=== PATIENT | male | born 1945 | race Caucasian/White ===

== ENCOUNTER 2022-03-17 10:20 | Emergency (ER) | payer MEDICARE, SELFPAY ==
[2022-03-17 10:25] VITALS: BP 162/88; PULSE 57; RESP 18; TEMP 36.6; O2SAT 97; BMI 33.0
--- NOTE | 2022-03-17 10:57 | ED.GENADULT ---
HPI - General Adult General Chief complaint: High Blood Pressure Stated complaint: elevated blood pressure Time Seen by Provider: 03/17/22 10:38 History of Present Illness HPI narrative: This 76-year-old male comes in with concern about his blood pressure. He states that he has not slept well the last couple nights because he has been worried about his blood pressure. He also had a nose bleed in the left nostril. He states that he measured his blood pressure at a systolic value of around 190. He is taking atenolol. He states that he feels normal otherwise. He does not report any shortness of breath or chest pain. He does not have any lightheadedness. He arrives here with blood pressure of 162/88. Related Data Home Medications Medication Instructions Recorded Confirmed atenolol 50 mg tablet mg 03/17/22 chlorthalidone 25 mg tablet mg 03/17/22 ibuprofen 600 mg tablet mg 03/17/22 primidone 50 mg tablet mg 03/17/22 Allergies Allergy/AdvReac Type Severity Reaction Status Date / Time aspirin Allergy Verified 03/17/22 10:31 Review of Systems Status of ROS: Reports: 10 or more systems reviewed and unremarkable except as noted in History and below Narrative: Constitutional: No fevers, no weight gain or loss. Eyes: No discharge. No vision changes. HENT: No congestion, no sore throat, no ear pain. He reports a nosebleed last evening. Cardiovascular: No chest pain, no palpitations. Respiratory: No shortness of breath, no wheezes, no cough. Gastrointestinal: No abdominal pain, no vomiting, no diarrhea. Genitourinary: No dysuria, no hematuria. Musculoskeletal: Normal range of motion. Skin: No rashes, no pruritis. Neurological: No dizziness, weakness, sensory change, speech change. Endo/Heme/Allergies: No bruising or bleeding. No polydipsia. Pysch: no suicidality. He reports some recent insomnia and anxiety symptoms. All other systems reviewed and are negative. Exam Narrative: Exam Narrative: Constitutional: Well-developed, well-nourished, no acute distress. HEENT: Normocephalic, atraumatic. Evidence of recent bleeding in the left anterior nostril. No active bleeding. Neck: Normal range of motion. Nontender. Supple. Heart: Regular. No murmurs. Normal rate. Intact distal pulses. Lungs: Clear to auscultation. No chest discomfort. No wheezes, rhonchi, or rales. Abdomen: Normal bowel sounds. Nontender. No rebound tenderness. Genitalia: Deferred. Back: No midline tenderness. Normal range of motion. Extremities: Normal range of motion. No injury. Skin: Intact. No rash. Warm. No erythema or pallor. Neurologic: No altered sensation. No weakness. Alert and oriented. Psychiatric: No suicidality. No anxiety or depression. No insomnia. Nursing notes and vitals signs are reviewed. Const: Vital Signs, click to edit/add: Vital Signs - 24 hr 03/17/22 10:25 Temperature 97.9 F Pulse Rate [Right Pulse Oximeter] 57 L Respiratory Rate 18 Blood Pressure [Ri ght Upper Arm] 162/88 H Pulse Oximetry 97 Oxygen Delivery Me thod Room Air Course Vital Signs Vital signs: Initial Vital Signs Temperature 97.9 F 03/17/22 10:25 Temperature Source Temporal Artery Scan 03/17/22 10:25 Pulse Rate 57 L 03/17/22 10:25 Respiratory Rate 18 03/17/22 10:25 Blood Pressure 162/88 H 03/17/22 10:25 Blood Pressure Mean 112 03/17/22 10:25 Blood Pressure Position Sitting 03/17/22 10:25 Pulse Oximetry 97 03/17/22 10:25 Oxygen Delivery Method 03/17/22 10:25 Vital Signs Temperature 97.9 F 03/17/22 10:25 Pulse Rate 57 L 03/17/22 10:25 Respiratory Rate 18 03/17/22 10:25 Blood Pressure 162/88 H 03/17/22 10:25 Pulse Oximetry 97 03/17/22 10:25 Oxygen Delivery Method 03/17/22 10:25 Temperature 97.9 F 03/17/22 10:25 Pulse Rate 57 L 03/17/22 10:25 Respiratory Rate 18 03/17/22 10:25 Blood Pressure 162/88 H 03/17/22 10:25 Pulse Oximetry 97 03/17/22 10:25 Oxygen Delivery Method 03/17/22 10:25 Medical Decision Making MDM Narrative Medical decision making narrative: This patient comes in with concern about blood pressure. I described criteria that her used to establish a diagnosis of hypertension or to consider change of treatment plans. I advised him to follow-up with his primary physician in this regard. He did have a nosebleed last evening but there is no active bleeding currently. I gave instructions regarding recurrent bleeding if this were to happen. He did receive a nasal clamp if rebleeding recurs. Discharge Plan Discharge Clinical Impression: Elevated blood pressure reading Patient Disposition: Home, Self-Care Condition: Stable Additional Instructions: Continue current plans. Record blood pressures and follow-up with primary physician to review medications. Return if worsening. Prescriptions: No Action primidone 50 mg tablet Label Comments: TAKE 5 TABLETS (250MG) BY MOUTH TWICE DAILY. chlorthalidone 25 mg tablet Label Comments: TAKE ONE TABLET (25MG) BY MOUTH ONE TIME DAILY. ibuprofen 600 mg tablet Label Comments: TAKE ONE TABLET BY MOUTH FOUR TIMES DAILY WITH MEALS NEEDED for pain. atenolol 50 mg tablet Label Comments: TAKE ONE TABLET BY MOUTH ONE TIME DAILY Follow Up/Referrals: Glenn Mayfield MD [Primary Care Provider] - Stand Alone Forms: Smarterphone Info Instructions
[2022-03-17 11:05] VITALS: BP 138/69; PULSE 50; O2SAT 96
--- OUTSIDE RECORDS SUMMARY | 2022-03-17 11:14 | XMS_ITS | Clinical Summary ---
:1945 Author Organization [facility] [employer] [facility] [place] [address] Care Team Providers Name Role Phone Bonita Wilder MD Unavailable Unavailable Toro Dobbins MD Unavailable Unavailable Tiffany Mcmillan Unavailable Unavailable Pj Tobin DO Primary Care Provider Allergies Active Allergy Reactions Severity Noted Date Comments Aspirin, Buffered 10/16/2006 intorence to asa Diphenhydramine Itching 02/08/2015 Loratadine Itching 10/14/2013 Medications Medication Sig Dispensed Refills Start Date End Date Status MISCELLANEOUS MEDICAL As directed. For personal us e. 30-40cm compression, as per previous measurements 2 Packet 0 04/06/2011 Active SUPPLY (GRADUATED Diagnosis lymphedema 457.1 COMPRESSION STOCKINGS) CPAP CPAP machine for 1 unit 0 12/31/2014 Ac tive home use at pressure: , heated humidifier (1per 6 months), humidifier chamber, mask and interface (nasal mask, nasal pillow mask, full face mask 1 per 3 months ea.), nasal mask cushion (2 per month), nasal pillow cushion (2 pair per month), full face mask cushion 1 per month), tubing (1 per 3 months), headgear (1 per 6 months), chinstrap (1 per 6 months), filter: disposable (2 per month), Length of Need: Lifetime, AHI: atenoloL (TENORMIN) TAKE ONE TABLET BY 90 Tablet 2 09/08/2021 Active 50 mg MOUTH ONE TIME tabletIndications: DAILY Hypertension, Medicare annual wellness visit, subsequent oxyCODONE [The details of 0 11/02/2021 Act jaime (ROXICODONE) 5 mg the medication are immediate release not available tablet because there are pending changes by a home health clinician.] silver sulfADIAZINE Apply topically to 50 g 0 11/06/2021 Active (SILVADENE) 1 % affected area(s) creamIndications: once daily. Skin abrasion multivitamin (MVI) Take 1 Tablet by 0 11/07/2021 Active tablet mouth once daily. chlorthalidone TAKE ONE TABLET BY 90 Tablet 2 11/27/2021 Active (HYGROTON) 25 mg MOUTH ONE TIME tabletIndications: DAILY Essential hypertension ibuprofen (ADVIL; Take one tablet by 360 Tablet 11 11/27/2021 Active MOTRIN) 600 mg mouth 4 times a tabletIndications: day with food for Chronic pain of both pain. knees nicotine (Nicotrol) Inhale 10 mg by 168 Each 0 12/26/2021 Active 10 mg mouth every hour inhalerIndications: while awake as Tobacco use needed for Nicotine Craving. primidone (MYSOLINE) Take 1 Tablet (250 30 Tablet 2 12/26/2021 Active 250 mg mg) by mouth two tabletIndications: times daily. Resting tremor Active Problems Problem Noted Date Chronic venous insufficiency 11/06/2021 Combined forms of age-related cataract, bilateral 04/2021 Encounter for fitting and adjustment of hearing aid Hereditary and idiopathic neuropathy, unspecified 04/2021 Nail dystrophy 11/06/2021 Hypertrophy of nail 11/06/2021 Monoclonal gammopathy 11/06/2021 Personal history of tobacco use, presenting hazards to health 11/06/2021 Prediabetes 11/06/2021 Sensorineural hearing loss, bilateral 11/06/2021 Tinnitus 11/06/2021 Chronic pain of both knees 10/12/2020 Overview: October 2020: Bilateral cortisone injection s by Dr. Benavides. Left knee pain relief approximately 3 months of 50%. Right knee pain relief better and longer. Feb 2021: Left knee cortisone injection. 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 02/01/2009 NEVUS, NON-NEOPLASTIC 10/29/2000 Essential hypertension 03/18/2000 Obesity 03/18/2000 Other lymphedema Obstructive sleep apnea Encounters Date Type Specialty Care Team Description 03/17/2022 Travel 03/17/2022 Nurse Triage Pj Tobin DO Blood Press ure; Nose Problem 02/13/2022 Telephone Pj Tobin DO Referral (P ODIATRY ) 12/21/2021 Travel from Last 3 Months Immunizations Name Administration Dates Next Due AMB Influenza, IIV3 (Age >=3 01/06/2013 years)(Flu Clinic Only) Amb Influenza, Inact (High-dose) (Flu 01/06/2016, 01/07/2015 , 03/03/2014 Clinic Only) COVID-19 vaccine (MOO[employer]COM 01/20/2021, 06/21/2020, 30mcg/0.3mL) PF, MDV Influenza Virus, Unspecified 01/06/2017, 01/06/2015, 013, 01/18/2011 Influenza, High-dose Inactivated 2017, 2017, , 01/06/2016, 01/07/2015, 03/03/2014 Influenza, High-dose Quadrivalent 12/25/2020, 12/10/2019 Inactivated Influenza, IIV3 (Age 6-35 mos) 01/18/2011 Influenza, IIV3 (Age >=3 years) 01/06/2013, 04/22/2012, 01/06, 12/08/2008 Influenza, Inactivated AIIV4 (Age 65+ 12/08/2021 Years) Preserv Free Influenza, Inactivated IIV3 (Age 65+ 12/02/2018 Years) Preserv Free Pneumococcal Poly,23-Valent 08/22/2018, 07/12/2018, 12/09/19 09, (Pneumovax) 04/06/2005 Pneumococcal conj 13-Valent (Prevnar 09/02/2015, 09/08/2014 13) Pneumococcal, Unspecified 12/08/2008 Td (Age >=7 Years) 03/03/2003 Tdap 10/23/2021, 08/01/2011 Zoster (Shingrix-RZV, recombinant) 06/01/2017, 03/27/2017 Zoster (Zostavax-ZVL, live) 08/10/2012, 10/02/2011 Family History Medical History Relation Name Comments Other Father kidney failure Stroke Mother Relation Name Status Comments Father Mother Social History Tobacco Use Types Packs/Day Years Used Date Smoking Tobacco: Every Day Cigarettes 0.5 40 L ast attempted to quit: 06/07/2015 Cigars Smokeless Tobacco: Never Tobacco Cessation: Ready to Quit: No; Co unseling Given: Yes Comments: 5 cigars per day Alcohol Use Standard Drinks/Week Comments Yes 0 (1 standard drink = 0.6 oz pure 1 beer and 1 shot of whiskey yearly alcohol) - used to be a heavy etho user Alcohol Habits Answer Date Recorded How often do you have a drink containing alcohol? Monthly or less 06/12/2018 How many drinks containing alcohol do you have on a 1 or 2 06/12/2018 typical day when you are drinking? How often do you have six or more drinks on one Never 06/12/2018 occasion? 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 Obstetrics History Last Filed Vital Signs Vital Sign Reading Time Taken Comments Blood Pressure 113/71 12/26/2021 3:25 PM CDT Pulse 56 12/26/2021 3:25 PM CDT Temperature 37 ??C (98.6 ??F) 12/05/2021 9:14 AM CDT Respiratory Rate 18 12/05/2021 9:14 AM CDT Oxygen Saturation 95% 12/26/2021 3:25 PM CDT Inhaled Oxygen Concentration - - Weight 121.7 kg (268 lb 3.2 oz) 08/17/2021 10:51 AM CDT Height 177.8 cm (5' 10) 08/17/2021 10:51 AM CDT Body Mass Index 38.48 08/17/2021 10:51 AM CDT Plan of Treatment Health Maintenance Due Date Last Done Comments COVID-19 vaccine series (5 - 08/31/2021 07/06/2021, 021, Booster for Pfizer series) 06/21/2020, Additiona l history exists Depression screening for age 12+ 09/19/2021 09/19/2020, 01/2021, 09/17/2019, Additional history exists Medicare Wellness for age 65+ 09/19/2021 09/19/2020, 2019, 09/10/2018, Additional history exists BMI (ht and wt on same day) for 08/17/2022 08/17/2021, 09/06, age 18+ 01/19/2020, Additional history exists Low Dose CT (for lung CA) age 0812/04/2022 12/04/2021 50-80 Tetanus booster 10/24/2031 10/23/2021, 08/01/2011, 03/03/2003 Zoster (shingles) series for age Completed 06/01/2017, , 50+ 08/10/2012, Additional history exists Hepatitis C screening for age Completed 09/30/2017 18-79 Pneumococcal series for age 65+ Completed 08/22/2018, 0409/2018, 09/02/2015, Additional history exists Colonoscopy through age 75 Discontinued 11/05/2018, 9, 11/05/2018, Additional history exists Tdap Completed 10/23/2021, 08/01/2011 Influenza for age 65+ Completed 12/08/2021, 12/25/2020, 12/10/2019, Additional history exists Results Not on filefrom Last 3 Months Insurance Payer Benefit Plan / Subscriber ID Effective Dates Phone Addre ss Type Group [employer] [id number] 2021-Prese [id number] [place] [address] MEDICARE PART A MEDICARE PART A [id number] 1989-Presen ATTN: CLAIMS - HB USE ONLY HB ONLY t [address] [facility] [place] [address] MEDICARE PART B MEDICARE PART B [id number] 1989-Presen ATTN: CLAIMS - HB USE ONLY HB ONLY t [address] [facility] [place] [place] [address] [facility] MR [id number] 2020-Presen [address] [place] [address] [facility] [id number] 2021-Presen [address] [facility] [place] [address] Care Teams Sql Programmer Relationship Specialty Start Date End Date Pj Tobin DO PCP - General Family Practice 01/16/21 [address] [place] [address] Bonita Wilder, Physical Medicine and 08/06/12 Toro Tillman, Surgery - Vascular 08/06/12 Tiffany Zhu Infectious Diseases 08/06/12
--- OUTSIDE RECORDS SUMMARY | 2022-03-17 11:14 | XMS_ITS | Continuity of Care Document ---
:1945 Author Organization [facility] Care Team Providers Name Role Phone [facility] Unavailable Unavailable Problems Combined list of problems from Department of Defense and [facility] Affairs facilities. It does not include entries that were removed or entered in error. Problem Status Onset Problem Type Date of Comments Source Date Resolution Chronic obstructive Active Condition [facility] lung disease HCS (SNOMED CT 06199682) Chronic venous Active Condition [facility] insufficiency HCS Co-Managed Care Active Condition Dec 06, [facility] 2021 HCS Entered By: SABINO ROBLERO Comment: PCP: Dr. Alonso ([facility]) Dec 06, 2021 Entered By: SABINO ROBLERO Comment: Heme/onc: [facility] Essential Active Condition [facility] hypertension HCS Ingrowing toenail [facility] (SNOMED CT HCS 658616210) Lymphedema * Active Condition [facility] (ICD-9-CM 457.1) HCS Monoclonal IgG Active Condition Oct 21, [facility] 2019 HCS Entered By: SABINO ROBLERO Comment: Follows at [place] Obesity Active Condition [facility] HCS Obstructive sleep Active Condition [facility] apnea HCS Onychauxis (SNOMED Active Condition [place] 62968289) HCS Polycythemia Active Condition Oct 21, [facility] 2019 HCS Entered By: SABINO ROBLERO Comment: Follows at [place] Dec 06, 2021 Entered By: SABINO ROBLERO Comment: JAK2 testing negative. ?smoking related. BM Bx done 2019 ([facility]) Prediabetes Active Condition [facility] HCS Tinnitus * Active Condition [facility] (ICD-9-CM 388.30) HC S Tobacco use (SNOMED Active Condition [facility] CT 738290743) HCS Diagnosis: Active Diagnosis [facility] ICD-10-CM Z46.1 HCS Encounter for fitting and adjustment of hearing aidwith Provider Comments: Encounter for fitting and adjustment of hearing aid Diagnosis: Active Diagnosis [facility] [place] ICD-10-CM G47.30 HCS Sleep apnea, unspecifiedwith Provider Comments: Obstructive sleep apnea ([facility] [id number]) Diagnosis: Active Diagnosis [facility] [place] ICD-10-CM Z72.0 HCS Tobacco usewith Provider Comments: Tobacco use ([facility] [id number]) Diagnosis: Active Diagnosis [facility] [place] ICD-10-CM D47.2 HCS Monoclonal gammopathywith Provider Comments: Monoclonal IgG present ([facility] [id number]) Diagnosis: Active Diagnosis [facility] [place] ICD-10-CM L60.3 HCS Nail dystrophywith Provider Comments: Nail dystrophy Diagnosis: Active Diagnosis [facility] [place] ICD-10-CM H25.813 HC S Combined forms of age-related cataract, bilateralwith Provider Comments: Combined forms of age-related cataract, bilateral Diagnosis: Active Diagnosis [facility] [place] ICD-10-CM G60.9 HCS Hereditary and idiopathic neuropathy, unspecifiedwith Provider Comments: Hereditary and idiopathic neuropathy, unspecified Diagnosis: Active Diagnosis [facility] [place] ICD-10-CM H90.3 HCS Sensorineural hearing loss, bilateralwith Provider Comments: Sensorineural hearing loss, bilateral Medications Combined list of outpatient medications from Department of [employer] and Veterans Affairs facilities. Medications provided include 1) outpatient medications from the last 15 months, and 2) patient-reported medications. Medication Details Route Status Patient Prescription Prescription Last Ordering Order Source Instructions Expires Number Dispense Provider Date Date ATENOLOL TAKE ONE ORALLY ACTIVE BAM,T [place] 50MG TAB TABLET ERESE M 2011 [place] [facility] BY MOUTH [facility] DAILY CHLORTHALID TAKE ONE ORALLY ACTIVE OSBALDO,GALA 12/06 / [place] ONE 25MG TABLET ERTSON E 2021 [place] [facility] TAB BY MOUTH HCS EVERY DAY PRIMIDONE TAKE ONE ORALLY ACTIVE MERRITT,J 10/01/ [place] 50MG TAB TABLET MART C 2016 [place] [facility] BY [facility]TH HCS TWICE A DAY Allergies, Adverse Reactions, Alerts Combined list of allergies from Department of [employer], [employer] and Veterans Affairs facilities. It does not include entries that were removed or entered in error. Substance Category Reaction Severity Reaction Status Date Comments S ource type Reported ASPIRIN Propensity Gastrointes Propensity active [place] to adverse tinal to adverse 0 [facility] reactions hemorrhage reactions H CS to drug to drug (finding) (finding) LORATADINE Propensity Itching Propensity active [place] to adverse to adverse 4 LI S VA reactions reactions HCS to drug to drug (finding) (finding) Immunizations Combined list of available immunizations from the Department of Defense and Veterans Affairs facilities. 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 complet per JLV [place] TH 2021 ed [place] COVID-19 4 complet [place] (PFIZER), 2021 ed [place] [facility] MRNA, LNP-S, H CS PF, 30 MCG/0.3 ML DOSE, DONNA-SUCROSE (AGES 12+ YEARS) COVID-19 3 complet [place] (PFIZER), 2020 ed [place] [facility] MRNA, LNP-S, H CS PF, 30 MCG/0.3 ML DOSE COVID-19 2 complet [place] LIANET ([employer]), 2020 ed HEAL TH MRNA, LNP-S, PF, 30 MCG/0.3 ML DOSE COVID-19 1 complet [place] LIANET ([employer]), 2020 ed HEAL TH MRNA, LNP-S, PF, 30 MCG/0.3 ML DOSE ZOSTER 2 complet MIIC [place] RECOMBINANT 2017 ed [facility] [place] [facility] H[facility] ZOSTER 1 complet MIIC [place] RECOMBINANT 2016 ed [facility] [place] [facility] INFLUENZA, complet [place] HIGH DOSE 2016 ed [place] [facility] SEASONAL HCS PNEUMOCOCCAL complet Wyet h [place] CONJUGATE PCV 2016 ed Pharm. , [place] 13 [id number], HCS 09/22. INFLUENZA, complet [place] HIGH DOSE 2014 ed [place] [facility] SEASONAL [facility] INFLUENZA, complet [place] UNSPECIFIED 2012 ed [facility] [place] [facility] FORMULATION HC S ZOSTER LIVE complet merck [place] 2011 ed 0254ae,3/ [place] [facility] 09/2012 HCS TDAP complet [place] 2011 ed [place] HCS INFLUENZA, complet [place] UNSPECIFIED 2010 ed [facility] [place] [facility] FORMULATION HC S PNEUMOCOCCAL, complet PPV -23 [place] UNSPECIFIED 2008 ed [place] [facility] FORMULATION HC S Vital Signs Combined list of inpatient and outpatient Vital Signs from Department of Defense and Veterans Affairs, ranging from 12 months to all on record, depending upon the facility. Vital Sign Value Date Comments Source SYSTOLIC BLOOD PRESSURE 127 12/06/2021 11:22:44 [facility] DIASTOLIC BLOOD PRESSURE 76 12/06/2021 11:22:44 [facility] PULSE OXIMETRY 95% 12/06/2021 11:22:44 [place] [facility] WEIGHT 255.4 12/06/2021 11:22:44 [place] [facility] BMI 41kg/m2 12/06/2021 11:22:44 [place] [facility] PAIN 7 12/06/2021 11:22:44 [place] [facility] TEMPERATURE 98.1 12/06/2021 11:22:44 [place] [facility] PULSE 61 12/06/2021 11:22:44 [place] [facility] RESPIRATION 18 12/06/2021 11:22:44 [place] [facility] Encounters Combined list of: 1) Encounters from Department of Veterans Affairs facilities going back up to the last 18 months. 2) Encounters from the Department of Defense facilities going back up to 280 months. Location Location Encounter Encounter Reason Attending ADM DC Stat us Disposition Source Details Type Number For Provider Date Date Visit Outpatient [id number] KYLAH ROBLERO 11/07 [place] Encounter [id number] RTSON E [facility] OFFICE O/P 75442-4.61 Diagnos KYLAH ROBLERO 11/07 [place] EST MOD [id number] is: RTSON E [place] [facility] 30-39 MIN ICD-10- HCS CM D47.2 Monoclo nal gammopa thy<br/ >with Provide r Comment s: Monoclo nal IgG present (SCT [id number]) ROUT FOOT 92736-4.61 Diagnos JOSH,TIN 12/02 [place] CARE PER [id number] is: A L /2020 [place] [facility] A VISIT ICD-10- HCS CM L60.3 Nail dystrop hy
with Provide r Comment s: Nail dystrop hy Outpatient [id number] 12/06 [place] Encounter [id number] /2020 [place] [facility] Outpatient 64472-5.61 10/15 [place] Encounter [id number] /2020 [place] [facility] ROUT FOOT 19612-8.61 Diagnos YOUNG,BEAT 12/22 [place] CARE PER [id number] is: RICE [place] A VISIT ICD-10- HCS CM L60.3 Nail dystrop hy
with Provide r Comment s: Nail dystrop hy HEARING 22249-5.61 Diagnos YUE JAMILR 04/10 [place] AID CHECK [id number] is: ICA L [place] [facility] BOTH EARS ICD-10- HCS CM H90.3 Sensori neural hearing loss, bilater al
with Provide r Comment s: Sensori neural hearing loss, bilater al OFFICE O/P [id number] Diagnos JOLIE,BRIT 06/01 [place] EST MOD [id number] is: TONE WOOTEN /2021 [facility] 30-39 MIN ICD-10- HCS CM G60.9 Heredit angel and idiopat hic neuropa thy, unspeci fied
with Provide r Comment s: Heredit angel and idiopat hic neuropa thy, unspeci fied SELF-MGMT 60136-3. Diagnos ROSAURA RIVERA 06/07 [place] EDUC & [id number] is: RTHA R [place] [facility] TRAIN 1 PT ICD-10- HCS CM Z46.1 Encount er for fitting and adjustm ent of hearing aid<br/ >with Provide r Comment s: Encount er for fitting and adjustm ent of hearing aid Outpatient [id number] 07/06 [place] Encounter [id number] /2021 [place] [facility] OFF[place]/P 98438-6 Diagnos DYLAN,[facility] 08/11 [place] EST MOD [id number] is: HELL E [place] [facility] A 30-39 MIN ICD-10- HCS CM H25.813 Combine d forms of age-rel ated catarac t, bilater al
with Provide r Comment s: Combine d forms of age-rel ated catarac t, bilater al ROUT FOOT 67917-1.61 Diagnos [facility] 08/21 [place] CARE PER [id number] is: ISTINE A [facility] VISIT ICD-10- HCS CM L60.3 Nail dystrop hy
with Provide r Comment s: Nail dystrop hy Outpatient [id number] 09/26 [place] Encounter [id number] /2021 [place] [facility] 86597-2.61 10/13 [place] Encounter [id number] /2021 [place] [facility] Outpatient 20315-1..6 10/23 [place] Encounter [id number] /2021 [place] 20546-1.43 10[place]25 [place] En[id number] /2021 [facility] OFFICE O/P 87698-2.61 Diagnos KYLAH ROBLERO 12/06 [place] EST MOD [id number] is: RTSON E /2021 [place] [facility] 30-39 MIN ICD-10- HCS CM D47.2 Monoclo nal gammopa thy<br/ >with Provide r Comment s: Monoclo nal IgG present ([facility] [id number]) HC PRO 86279-8.61 Diagnos WADDELL- 12/20 [place] PHONE CALL [id number] is: LAURA MORFIN /2021 [place] [facility] 11-20 MIN ICD-10- MICK HCS CM Z72.0 Tobacco use<br/ >with Provide r Comment s: Tobacco use ([facility] [id number]) [place] 76794-6.61 Diagnos CHRISTENSE 01/16 [place] EDUCATION [id number] is: JOVON Chaidez /2021 [facility] NOC ICD-10- BETTY HCS INDIVID CM G47.30 Sleep apnea, unspeci fied
with Provide r Comment s: Obstruc tive sleep apnea ([facility] [id number]) Outpatient 50208-6.61 01/22 [place] Encounter [id number] /2021 [place] HCS REMOVE 80074-6.61 Diagnos JAY BABB 02/13 [place] IMPACTED [id number] is: AEL F /2021 [place] A EAR WAX ICD-10- HCS UNI CM Z46.1 Encount er for fitting and adjustm ent of hearing aid<br/ >with Provide r Comment s: Encount er for fitting and adjustm ent of hearing aid Social History Combined list of available smoking, tobacco, and other social history from Department of Defense and[employer]ans [employer] facilities. 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 [facility] NO History of tobacco use FORMER TOBACCO USE >1Y 09/09/2017 [facility] <7Y History of tobacco use CURRENT TOBACCO USER 10/01/2016 [facility] History of tobacco use FORMER TOBACCO USE <1Y 09/02/2015 [facility] History of tobacco use FORMER TOBACCO USE >1Y 08/18/2014 [facility] <7Y History of tobacco use CURRENT TOBACCO USER 10/14/2013 [facility] History of tobacco use CURRENT TOBACCO USER 10/07/2012 [facility] History of tobacco use CURRENT TOBACCO USER 10/02/2011 [facility] History of tobacco use CURRENT TOBACCO USER 09/30/2009 [facility]
--- OUTSIDE RECORDS SUMMARY | 2022-03-17 11:15 | XMS_ITS | Encounter Summary ---
:1945 Author Organization [facility] Address [address] [place] [address] Support Name Relationship Address Phone PRACHI ANDERSON Unavailable [id number] [facility] [place] [address] SHREE ANDERSON Unavailable [address] [facility] [place] [address] Insurance Providers: All historical and current Section Date Range: From patient's date of to the date document was created.This section includes the names of all active insurance providers for the patient. Insurance Type of Plan Start of End of Group Member Insurance Policy P atient's Provider Coverage Name Policy Policy Number ID Provider's Agosto's Relationship Coverage Coverage Telephone Name to Policy Number Agosto MEDICARE MEDICARE PART Dec 07, PART B [id number] 800 JUSTIN,LINDSAY P ATIENT (WNR) (M) B [id number] [phone] [place] MEDICARE MEDICARE PART Dec 07, PART B [id number] 800 JUSTIN,LINDSAY P ATIENT (WNR) (M) B [id number] [phone] [place] MEDICARE MEDICARE PART Apr 08, PART A [id number] 800 JUSTIN,LINDSAY P ATIENT (WNR) (M) A [id number] [phone] [place] MEDICARE MEDICARE PART Apr 08, PART A [id number] 800 JUSTIN,LINDSAY P ATIENT (WNR) (M) A [phone] [place] Selected Encounter This section includes the information on record at OR for the Encounter. Date/Time Encounter Type Encounter Reason Provider Source Description Jun 07, 2021 SELF-MGMT EDUC AUDIOLOGY ICD-10-CM Z46.1 NADYA RIVERA 12:30 PM & TRAIN 1 PT Encounter for R fitting and adjustment of hearing aid with Provider Comments: Encounter for fitting and adjustment of hearing aid IHE Encounter Template Text not used by VA Assessments - Encounter Diagnoses This section includes the primary and secondary diagnoses documented for the Encounter. Date/Time Primary/Secondary Diagnosis Name Provider Source Diagnosis Jun 07, 2021 PRIMARY Encounter for CELIA RIVERA V A 01:17 PM fitting and A R HCS adjustment of hearing aid Jun 07, 2021 SECONDARY Sensorineural CELIA RIVERA V A 01:17 PM hearing loss, A R HCS bilateral Jun 07, 2021 SECONDARY Tinnitus, CELIA RIVERA VA 01:17 PM bilateral A R HCS Plan of Treatment: Future Appointments (+ 6 months) and Future Tests (+/- 45 days) The Plan of Treatment section includes future care activities for the patient from all [facility] hospital. This section includes future appointments and future orders which are active, pending orscheduled.Future Appointments This section includes appointments that were scheduled to occur 6 months from the date of the Encounter, up to a maximum of 20 appointments. The data comes from all OR treatment facilities. Appointment Date/Time Appointment Type Appointment Facili ty Name August 11, 2021 10:00 AM AMBULATORY - SURGERY [facility] S August 21, 2021 01:00 PM AMBULATORY - SURGERY [facility] Dec 06, 2021 11:15 AM AMBULATORY - MEDICINE [facility] Social History: Smoking Status (Most current) and Tobacco Use (All prior to encounter date) This section includes the most current, and the historical, smoking and tobacco-related health factors from the OR facility where the Encounter took place.Current Smoking Status This section includes the most current smoking, or tobacco-related health factor, from the OR facility where the Encounter took place. Date/Time Current Smoking Status Comment Facility Nov 07, 2020 09:15 AM VA-TOBACCO FORMER USER [place] [facility] Tobacco Use History This section includes a history of the smoking, or tobacco- related health factors, that were collected on or before the date of the Encounter. The data comes from the OR facility where the Encounter took place. 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 [facility] September 04, 2018 09:00 AM VA-TOBACCO USE MED NO [place] [facility] September 04, 2018 09:00 AM VA-TOBACCO USE WI 30 MIN OF WAKEUP [facility] September 04, 2018 09:00 AM VA-TOBACCO USER EVERY DAY [facility] Sep 09, 2017 09:41 AM FORMER TOBACCO USE >1Y <7Y [facility] Oct 01, 2016 03:22 PM CURRENT TOBACCO USER [facility] September 02, 2015 03:18 PM [facility] <[facility]Y [facility] August 18, 2014 10:08 AM FORMER TOBACCO USE >1Y <7Y [facility] Oct 14, 2013 09:37 AM CURRENT TOBACCO USER [facility] [facility] Oct 07, 2012 10:00 AM CURRENT TOBACCO USER [facility] Oct 02, 2011 08:10 AM CURRENT [facility] Sep 30, 2009 11:25 AM CURRENT TOBACCO USER [facility] Encounter Notes: All associated encounter notes This section contains the clinical notes associated to the Encounter. Date/Time Encounter Note(s) Provider Source Jun 07, 2021 12:07 PM AUDIOLOGY NOTE: NADYA RIVERA IS [facility] LOCAL TITLE: AUDIOLOGY CLINIC NOTE STANDARD TITLE: AUDIOLOGY NOTE DATE OF NOTE: JUN 07, 2021@12:07 ENTRY DATE: JUN 07, 2021@12:07:12 AUTHOR: NADYA RIVERA COSIGNER: URGENCY: STATUS: COMPLETED SUBJECT: MAGANA Fit DIAGNOSIS: Encounter for Fitting and Adjustment of Hearing Aid Sensorineural loss, bilateral Tinnitus, bilateral REASON FOR VISIT: Therapeutic - hearing aid fitting, orien tation and counseling using a standard curriculum (30 minutes) LOCATION OF VISIT (ROOM NUMBER): [id number] was seen for Hearing Aid [place] Appointment OTOSCOPY: Both Ears: Free of excessive cerumen. Normal ruth bam bilaterally HISTORY: is an experienced hearing aid we arer. Recommended keep his old hearing aids as a backup/spare as needed. 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 Fe edback test was completed and feedback diabetes territory manager was activated. Hearing aids were program med to prescriptive targets, which were derived from the Veterans hearing los s. Real-ear measurements could not be completed, pr obe tubes clogged repeatedly. Veterans subjective impressions were considered while adjusting the hearing aids. Frequency response was set at 100% of targ et. SoundRecover disabled per his preference. reported good sound quality and equal ba parveen between ears after adjustments were made. Veter an reported a comfortable fit. demonstrated understanding of the new aids and was able to in sert the hearing aids appropriately, as well as manipulate the volume control and charging unit. Indicator tones were demonstrated for [place]. Volume control enabled- Synchronized Program button enabled Programs: default Tap control enabled for answer/end phone call an d pause/resume streaming only Tap control training completed 's cell phone was paired to the hearing a ids via Bluetooth. A practice phone call was completed to verify functionality . Reviewed how to change call audio routing. Education and counseling was comp leted regarding streaming capabilities. Provided [employer] connectivity support number in case issues arise. was counseled using a standard curriculu m (30 minutes) regarding: -Full-time hearing aid use and acclimating to am plification -Realistic expectations for hearing aid use -How to charge the hearing aids -Location and operation of all controls -Proper care and maintenance -Protecting hearing in high noise levels -[facility] and Call Center contact information and se rvices, including the trial period. Prognosis for success is goo d, given the 's response to the hearing aids. Hearing aids were issued and supplies were pooja d. was provided with a copy of [place] issuance form [id number] a nd OR hearing aid handout. PLAN: [place] declined to schedule a followup appointm ent at this time. He will contact the Call Center for scheduling as needed . Patient is in agreement with this plan. /ariadna/ Clive Lindsey, [facility] Steam Tunnel Feeder Signed: 06/07/2021 13:17
--- OUTSIDE RECORDS SUMMARY | 2022-03-17 11:15 | XMS_ITS | Encounter Summary ---
:1945 Author Organization [facility] Address [address] [place] [id number] Support Name Relationship Address Phone PRACHI ANDERSON Unavailable [id number] [facility] [place] [address] SHREE ANDERSON Unavailable 1966 [facility] [address] Insurance Providers: All historical and current Section [...] MEDICARE MEDICARE PART Dec 07, PART B [id number] 800 JUSTIN,LINDSAY P ATIENT (WNR) (M) B 1991 [id number] [place] MEDIC[place] PART Dec 07, PART B [id number] 800 JUSTIN,LINDSAY P ATIENT (WNR) (M) B [phone] [place] MEDICARE PART Apr 08, PART A [id number] 800 JUSTIN,LINDSAY P ATIENT (WNR) (M) A 1991 [id number] [place] MEDICARE PART Apr 08, PART A [id number] 800 JUSTIN,LINDSAY P ATIENT (WNR) (M) A [phone] [place] Selected Encounter This section includes the information on record at [place] for the Encounter. Date/Time Encounter Type Encounter Reason Provider Source Description Jun 01, 2021 OFFICE O/P EST PODIATRY ICD-10-CM G60.9 JC DAVE 01:30 PM MOD 30-39 MIN Hereditary and JE idiopathic neuropathy, unspecified with Provider Comments: Hereditary and idiopathic neuropathy, unspecified IHE Encounter Template Text not used by [place] Assessments - Encounter Diagnoses This section includes the primary and secondary diagnoses documented for the Encounter. Date/Time Primary/Secondary Diagnosis Name Provider Source Diagnosis Jun 01, 2021 PRIMARY [facility] idiopathic Y JE [facility] neuropathy, unspecified Jun 01, 2021 SECONDARY T[facility]guium [facility] 01:33 PM Y [facility] Jun 01, 2021 SECONDARY Venous [facility] 01:33 PM insufficiency Y JE HCS (chronic) (peripheral) Plan of Treatment: Future Appointments (+ 6 months) and Future Tests (+/- 45 days) The Plan of Treatment section includes future care activities for the patient from all [place] [facility]. This section includes future appointments and future orders which are active, pending orscheduled.Future Appointments This section includes appointments that were scheduled to occur 6 months from the date of the Encounter, up to a maximum of 20 appointments. The data comes from all [place] treatment facilities. Appointment Date/Time Appointment Type Appointment Facili ty Name Jun 07, 2021 12:30 PM AMBULATORY - SURGERY [facility] August 11, 2021 10:00 AM AMBULATORY - SURGERY [facility] August 21, 2021 01:00 PM AMBULATORY - SURGERY [facility] Social History: Smoking Status (Most current) and Tobacco Use (All prior to encounter date) This section includes the most current, and the historical, smoking and tobacco-related health factors from the [place] facility where the Encounter took place.Current Smoking Status This section includes the most current smoking, or tobacco-related health factor, from the [place] facility where the Encounter took place. Date/Time Current Smoking Status Comment Facility Nov 07, 2020 09:15 AM VA-TOBACCO FORMER USER [facility]ILDA [facility]ERN[facility] Tobacco Use History This section includes a history of the smoking, or tobacco- related health factors, that were collected on or before the date of the Encounter. The data comes from the [place] facility where the Encounter took place. Date/Time Smoking Status/Tobacco Use Comment Facil ity Nov 07, 2020 09:15 AM VA-TOBACCO QUIT 15 YRS OR MORE [facility] September 04, 2018 09:00 AM VA-TOBACCO USE 30 YEARS OR MORE [facility] September 04, 2018 09:00 AM VA-TOBACCO USE ADVICE KERLINE [facility] September 04, 2018 09:00 AM VA-TOBACCO USE HOME CARE SPECIALIST NO [facility] September 04, 2018 09:00 AM VA-TOBACCO USE MED NO KERLINE [facility]IMES [facility] September 04, 2018 09:00 AM VA-TOBACCO USE WI 30 MIN OF WAKEUP [facility] September 04, 2018 09:00 AM [place]-TOBACCO USER EVERY DAY [facility] Sep 09, 2017 09:41 AM FORMER TOBACCO USE >1Y <7Y [facility] Oct 01, 2016 03:22 PM CURRENT TOBACCO USER [facility] September 02, 2015 03:18 PM FORMER [facility]BACCO USE <1Y [facility] August 18, 2014 10:08 AM FORMER TOBACCO USE >1Y <7Y [facility] Oct 14, 2013 09:37 AM CURRENT TOBACCO USER [facility] Oct 07, 2012 10:00 AM CURRENT TOBACCO USER [facility] Oct 02, 2011 08:10 AM CURRENT TOBACCO USER [facility] Sep 30, 2009 11:25 AM CURRENT TOBACCO USER [facility] Encounter Notes: All associated encounter notes This section contains the clinical notes associated to the Encounter. Date/Time Encounter Note(s) Provider Source Jun 01, 2021 12:46 PM PODIATRY ATTENDING NOTE: JC DAVE [facility] LOCAL TITLE: PODIATRY CLINIC NOTE STANDARD TITLE: PODIATRY ATTENDING NOTE DATE OF NOTE: JUN 01, 2021@12:46 ENTRY DATE: JUN 01, 2021@12:46:52 AUTHOR: JC DAVE EXP COSIGNER: URGENCY: STATUS: COMPLETED Subjective: 75 year old male presents to clinic for foot and nail care. He states that there have been no new issue s since his previous visit. History of neuropathy and pre diabetes. Overall, feeling we ll. Denies N/V/F/C/SOB/CP. 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 Active Non-VA Medications Status 1) Non-VA ATENOLOL 50MG TAB 50MG MOUTH DAILY ACT GABRIEL 2) Non-VA CHLORTHALIDONE 25MG TAB 12.5MG MOUTH E VERY DAY ACTIVE 3) Non-VA PRIMIDONE 50MG TAB 50MG MOUTH TWICE A DAY ACTIVE 4 Total Medications 10 Point ROS negative unless noted in the HPI. Objective: Patient is AOx3. NAD. Pleasant and co operative. Vascular: Pedal pulses palpable 2/4 at the DP an d PT locations bilateral. Capillary refill time is les s than 5 seconds. +1 pitting lower extremity edema, hemosidering staining to lower legs. Neurologic: Light touch and gross sensation inta ct. 0/10 sites intact as tested with SWMF b/l. Dermatologic: Skin is of normal texture and turg or. Temperature is warm to cool from proximal to distal . No open lesions or sores, webspaces are clean and dry. Toenails are intact. Nails 1-10 are elongat ed, thickened and dystrophic with evidence of subungual debris. Musculoskeletal: No gross deformity noted. Arch height and contour normal. Muscle strength 5/5 for all groups tested Assessment: Peripheral neuropathy Onychomycosis Venous insuffiency Plan: -Patient examined and evaluated. Discussed findi ngs with patient. -Good tenants of foot care were discussed, inclu ding daily foot inspection, bathing feet with lukewarm water to prevent burn s, drying thoroughly and/or applying antifungal powder t o webspaces, applying lotion to feet but not between toes, wearing clean dry sock s without tight elastic, avoiding barefoot walking, wearing proper footwear, and getting periodic fo ot exams. -Nails 1-10 were sharply debrided in length and thickness without incident. -Patient to RTC in 3 months for follow up. OK to continue with nurse nail clinic, see provider annually. /es/ JC DAVE DPM POLYTECHNIC TEACHER Signed: 06/01/2021 13:33
--- OUTSIDE RECORDS SUMMARY | 2022-03-17 11:15 | XMS_ITS | Encounter Summary ---
:1945 [address] [facility] Address [address] [place] [address] Support Name Relationship Address Phone PRACHI ANDERSON Unavailable [id number] [place] [address] [place] [address] SHREE ANDERSON Unavailable 1966 [place] [address] Insurance Providers: All historical and current Section [...] MEDICARE MEDICARE PART Dec 07, PART B [id number] 800 JUSTIN,LINDSAY P ATIENT (WNR) (M) B 1991 [id number] [phone] [place] MEDICARE PART Dec 07, PART B [id number] 800 JUSTIN,LINDSAY P ATIENT (WNR) (M) B [id number] [phone] [place] MED[place] MEDICARE PART Apr 08, PART A [id number] 800 JUSTIN,LINDSAY P ATIENT (WNR) (M) A [id number] [phone] [place] MED[place] MEDICARE PART Apr 08, PART A [id number] 800 JUSTIN,LINDSAY P ATIENT (WNR) (M) A 1991 [id number] [phone] [place] Selected Encounter This section includes the information on record at [place] for the Encounter. Date/Time Encounter Type Encounter Reason Provider Source Description August 11, 2021 OFFICE O/P EST OPHTHALMOLOGY ICD-10-CM TERRANCE RICHARDSON 10:00 AM MOD 30-39 MIN H25.813 E Combined forms of age-related cataract, bilateral with Provider Comments: Combined forms of age-related cataract, bilateral IHE Encounter Template Text not used by [place] Assessments - Encounter Diagnoses This section includes the primary and secondary diagnoses documented for the Encounter. Date/Time Primary/Secondary Diagnosis Name Provider Source Diagnosis August 11, 2021 PRIMARY Combined forms RIKY DIOP [place] 10:28 AM of age-related SA A HCS cataract, bilateral August 11, 2021 SECONDARY Nexdtve RIKY DIOP [facility] 10:28 AM age-related mclr SA [facility] degn, bilateral, early dry stage August 11, 2021 SECONDARY Pres[address]opia RIKY DIOP [facility] 10:28 AM [facility] Plan of Treatment: Future Appointments (+ 6 months) and Future Tests (+/- 45 days) The Plan of Treatment section includes future care activities for the patient from all [place] [facility]. This section includes future appointments and future orders which are active, pending orscheduled.Future Appointments This section includes appointments that were scheduled to occur 6 months from the date of the Encounter, up to a maximum of 20 appointments. The data comes from all [place] treatment facilities. Appointment Date/Time Appointment Type Appointment Facili ty Name August 21, 2021 01:00 PM AMBULATORY - SURGERY [facility] Dec 06, 2021 11:15 AM AMBULATORY - MEDICINE [facility] Dec 20, 2021 04:00 PM AMBULATORY - NONE [facility] Jan 16, 2022 02:30 PM AMBULATORY - MEDICINE [facility] Social History: Smoking Status (Most current) and Tobacco Use (All prior to encounter date) This section includes the most current, and the historical, smoking and tobacco-related health factors from the [place] facility where the Encounter took place.Current Smoking Status This section includes the most current smoking, or tobacco-related health factor, from the [place] facility where the Encounter took place. Date/Time Current Smoking Status Comment Facility Nov 07, 2020 09:15 AM VA-TOBACCO FORMER USER [place] [facility] Tobacco Use History This section includes a history of the smoking, or tobacco- related health factors, that were collected on or before the date of the Encounter. The data comes from the [place] facility where the Encounter took place. Date/Time Smoking Status/Tobacco Use Comment [facility] Nov 07, 2020 09:15 AM [place]-TOBACCO QUIT 15 YRS OR MORE [facility] September 04, 2018 09:00 AM [place]-TO[place]ACCO USE 30 YEARS OR MORE [facility] September 04, 2018 09:00 AM VA-TOBACCO USE ADVICE [facility] 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 NO [facility] September 04, 2018 09:00 AM [facility] September 04, 2018 09:00 AM VA-TOBACCO USE WI 30 MIN OF WAKEUP [facility] September 04, 2018 09:00 AM VA-TOBACCO USER EVERY DAY [facility] Sep 09, 2017 09:41 AM FORMER TOBACCO USE >1Y <7Y [facility] Oct 01, 2016 03:22 PM CURRENT TOBACCO USER [facility] September 02, 2015 03:18 PM FORMER TOBACCO USE <1Y [facility] August 18, 2014 10:08 AM FORMER TOBACCO USE >1Y <7Y [facility] Oct 14, 2013 09:37 AM CURRENT TOBACCO USER [facility] Oct 07, 2012 10:00 AM CURRENT TOBACCO USER [facility] Oct 02, 2011 08:10 AM CURRENT TOBACCO USER [facility] Sep 30, 2009 11:25 AM CURRENT TOBACCO USER [facility] Encounter Notes: All associated encounter notes This section contains the clinical notes associated to the Encounter. Date/Time Encounter Note(s) Provider Source August 11, 2021 09:51 AM STAFF NUCLEAR WEAPONS OFFICER NOTE: EKATERINA LANDA [facility] LOCAL TITLE: STAFF NUCLEAR WEAPONS OFFICER NOTE STANDARD TITLE: STAFF NUCLEAR WEAPONS OFFICER NOTE DATE OF NOTE: AUGUST 11, 2021@09:51 ENTRY DATE: AUGUST 11, 2021@09:51:03 AUTHOR: EKATERINA LANDA EXP COSIGNER: URGENCY: STATUS: COMPLETED Eye Start Exam Patient: ESTHER ANDERSON Sex: MALE Birthdate: [birth year] Chief complaint: Exam - no changes in vision have been noticed - no other concerns History of Present Illness: Location: Intensity: Duration: Active problems - Computerized Problem List is t he source for the followin. Lymphedema * 2. Tinnitus * 3. Personal History of Tobacco Use 4. Chronic obstructive lung disease (SNOMED CT 61970887) 5. Ingrowing toenail (SNOMED CT 561582569) 6. Onychauxis (SNOMED CT 06468142) 7. Obesity 8. Obstructive sleep apnea 9. Prediabetes 10. Essential hypertension 11. Chronic venous insufficiency 12. Monoclonal IgG present - [facility] 13. Polycythemia - Follows at [facility] 14. Co-Managed Care - PCP: [facility] Zeng ([facility]) - Heme/onc: Dr. Chacon ([facility]) Surgeries: SURGERIES - NONE FOUND Full Exam Eye Medications Patient denies eye medication use. Allergies: ASPIRIN (Sep 30, 2009) LORATADINE (Oct 14, 2013) No new Allergies. Past Medical History: Hypertension Past eye history: Cataracts : OU Past eye surgeries: Denies all Last refraction: 08-12-20 Vision: OD:CC(with glasses) OD: 20/40 Pinhole: 20/30+2 Near: 20/ Vision: OS:CC(with glasses) 0S: 20/25+1 Pinhole: 20/ Near: 20/ Current glasses: OD:+0.25 +0.36F632 Prism: OS:+1.00 +0.50X15 Prism: Add: +2.50 Confrontational Marrufo: Full to finger counting: Right: Yes Left: Yes Extra Ocular Movement: Normal Pupils: Right: Round Left: Round Size: Right: 4 Left: 4 React to light: Right: Yes Left: Yes Afferent pupil defect: Right:No Grade: Left: No Grade: Note: Intra-ocular pressure (IOP): OD: 20 OS: 19 iCare Dilation: mydriacyl 1% and neosynephrine OU August@09:56 /ariadna/ EKATERINANOEL [facility] ELECTRICAL RESEARCH ENGINEER Signed: 08/11/2021 09:56 August 11, 2021 06:58 AM OPTOMETRY NOTE: YANI DIOP [facility] LOCAL TITLE: OPTOMETRY CLINIC NOTE STANDARD TITLE: OPTOMETRY NOTE DATE OF NOTE: AUGUST 11, 2021@06:58 ENTRY DATE: AUGUST 11, 2021@06:58:28 AUTHOR: YANI DIOP EXP COSIGNER: URGENCY: STATUS: COMPLETED Reviewed and agree with tech notes, add: 75 year old WHITE MALE CC: Reports no changes to vision since last exam . Denies pain or discomfort. PMHx: COPD, MITCHELL, HTN, prediabetes Mental Status: alert and orientation to time and place Mood, affect: Appropriate Entering VAcc OD: 20/40 OS: 20/25+1 Manifest Refraction/Final Spectacle Prescription : OD:+0.25+0.34t829 VA:20/30 OS:+0.75+0.20c214 VA:20/25 Add:+2.50 SLEx (OU unless otherwise noted): Adnexa/Orbit: clear Lids/Lashes: dermatochalasis Conjunctiva: White and quiet Cornea: Clear Anterior Chamber: Deep and quiet Iris: No tears, no NVI Lens: 2+ NSC, 1+ CC OU; 1+ PSC OD, 1-2+ PSC OS --- Intra-ocular pressure (IOP): OD: 20 OS: 19 iCare Dilation: mydriacyl 1% and neosynephrine OU --- Fundus Exam (OU unless otherwise noted): ONH: 0.5 OD - shallow, 0.45 OS Rim tissue well perfused OU, distinct margins, n o pallor Macula: flat/dry; OD trace RPE mottling, rare fi ne drusen, OS few small hard drusen Vessels: Normal caliber, no heme, no NVE Vitreous: Syneresis Periphery: Flat and intact with no holes or tear s 360' Assessment/Plan 1. Combined Cataract OU -mildly visually significant, not affecting ADL s. Discussed timing of surgery. Monitor 2. 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 -Discussed modification factors. Patient is cur rently a non-smoker -Encouraged increased antioxidant intake, no sm oking, UV protection. -AREDS2-not indicated. -Discussed home amsler grid. Handout given. -Return to clinic [place] if any changes noted, ot herwise RTC 1 year VTDMR. 3. RE/Presbyopia OU -Released final copy of Spectacle prescription. Transitions due to #1 Recommend RTC 1 year VTDMR or sooner with change s I have discussed this patient with my supervisin g practitioner Dr. Richardson, and Dr. Richardson agrees with my findings, assessment an d plan. /ariadna/ YANI DIOP OPTOMETRY RESIDENT Signed: 08/11/2021 10:29 Receipt Acknowledged By: * AWAITING SIGNATURE * TERRANCE RICHARDSON
--- OUTSIDE RECORDS SUMMARY | 2022-03-17 11:15 | XMS_ITS | Encounter Summary ---
:1945 Author Organization [facility] Address [address] [place] [address] Support Name Relationship Address Phone PRACHI ANDERSON Unavailable [id number] [facility] [phone] [place] [address] SHREE ANDERSON Unavailable 1966 [facility] [place] [address] Insurance Providers: All historical and current Section [...] MEDICARE MEDICARE PART Dec 07, PART B [id number] 800 JUSTIN,LINDSAY P ATIENT (WNR) (M) B 1991 [id number] [phone] [place] MEDICARE PART Dec 07, PART B [id number] 800 JUSTIN,LINDSAY P ATIENT (WNR) (M) B [id number] [phone] [place] MED[place] MEDICARE PART Apr 08, PART A [id number] 800 JUSTIN,LINDSAY P ATIENT (WNR) (M) A 1991 08A [phone] [place] MEDICARE MEDICARE PART Apr 08, PART A [id number] 800 JUSTIN,LINDSAY P ATIENT (WNR) (M) A [phone] [place] Selected Encounter This section includes the information on record at [place] for the Encounter. Date/Time Encounter Type Encounter Reason Provider Source Description Apr 10, 2021 HEARING AID AUDIOLOGY ICD-10-CM H90.3 NETO JAMIL 10:45 AM CHECK BOTH EARS Sensorineural L hearing loss, bilateral with Provider Comments: Sensorineural hearing loss, bilateral IHE Encounter Template Text not used by [facility] Assessments - Encounter Diagnoses This section includes the primary and secondary diagnoses documented for the Encounter. Date/Time Primary/Secondary Diagnosis Name Provider Source Diagnosis Apr 10, 2021 PRIMARY Sensorineural NETO JAMIL V A 12:13 PM hearing loss, L HCS bilateral Apr 10, 2021 SECONDARY Encounter for NETO JAMIL V A 12:13 PM fitting and L HCS adjustment of hearing aid Apr 10, 2021 SECONDARY Tinnitus, NETO JAMIL VA 12:13 PM bilateral L HCS Plan of Treatment: Future Appointments (+ 6 months) and Future Tests (+/- 45 days) The Plan of Treatment section includes future care activities for the patient [facility] This section includes future appointments and future orders which are active, pending orscheduled.Future Appointments This section includes appointments that were scheduled to occur 6 months from the date of the Encounter, up to a maximum of 20 appointments. The data comes from all [place] treatment facilities. Appointment Date/Time Appointment Type Appointment Facili ty Name Jun 01, 2021 01:30 PM AMBULATORY - SURGERY [facility] Jun 07, 2021 12:30 PM AM[facility]UL[facility]ORY - SUR[facility] August 11, 2021 10:00 AM AM[facility]UL[facility]ORY - SUR[facility] August 21, 2021 01:00 PM [facility]ORY - SUR[facility] Social History: Smoking Status (Most current) and Tobacco Use (All prior to encounter date) This section includes the most current, and the historical, smoking and tobacco-related health factors from the [place] facility where the Encounter took place.Current Smoking Status This section includes the most current smoking, or tobacco-related health factor, from the [place] facility where the Encounter took place. Date/Time Current Smoking Status Comment Facility Nov 07, 2020 09:15 AM VA-TOBACCO FORMER USER [facility] Tobacco Use History This section includes a history of the smoking, or tobacco- related health factors, that were collected on or before the date of the Encounter. The data comes from the [place] facility where the Encounter took place. Date/Time Smoking Status/Tobacco Use Comment [facility] Nov 07, 2020 09:15 AM [place]-TOBACCO QUIT 15 YRS OR MORE [facility] September 04, 2018 09:00 AM VA-TOBACCO USE 30 YEARS OR MORE [facility] September 04, 2018 09:00 AM VA-TOBACCO USE ADVICE KERLINE [facility] September 04, 2018 09:00 AM VA-TOBACCO USE RANGE ECOLOGIST NO [facility] September 04, 2018 09:00 AM VA-TOBACCO USE MED NO MINDm [facility] September 04, 2018 09:00 AM VA-TOBACCO USE WI 30 MIN OF WAKEUP [facility] September 04, 2018 09:00 AM VA-TOBACCO USER EVERY DAY [facility] Sep 09, 2017 09:41 AM FORMER TOBACCO USE >1Y <7Y [facility] Oct 01, 2016 03:22 PM CURRENT TOBACCO USER [facility] September 02, 2015 03:18 PM FORMER TOBACCO USE <1Y MIN [facility] August 18, 2014 10:08 AM FORMER TOBACCO USE >1Y <7Y [facility] Oct 14, 2013 09:37 AM CURRENT TOBACCO USER [facility] Oct 07, 2012 10:00 AM CURRENT TOBACCO USER [facility] Oct 02, 2011 08:10 AM CURRENT TOBACCO USER [facility] Sep 30, 2009 11:25 AM CURRENT TOBACCO USER [facility] Encounter Notes: All associated encounter notes This section contains the clinical notes associated to the Encounter. Date/Time Encounter Note(s) Provider Source Apr 10, 2021 08:36 AM [facility]: AUDIOLOGY CLINIC NOTE STANDARD TITLE: AUDIOLOGY NOTE DATE OF NOTE: APR 10, 2021@08:36 ENTRY DATE: APR 10, 2021@08:37:02 AUTHOR: NETO JAMIL EXP COSIGNER: URGENCY: STATUS: COMPLETED SUBJECT: KATHY Reason for visit: Therapeutic (hearing aid evalu ation and hearing aid service). 60 minutes Diagnosis: Sensorineural hearing loss, bilateral Tinnitus, bilateral Encounter for fitting of hearing aids Otoscopy: Both Ears: Free of excessive cerumen. Neg. EAM collapse/impaction. Circumaural earphones used. HISTORY: [place] is currently wearing Phonak Exelia Art B TE hearing aids, which were issued in 2009. [place] returns for maintenance on his current devices and to pursue new hearing aids. [place] feels his heari ng has somewhat declined over the years but does not notice a sudden change. H e denies, otalgia, otorrhea, aural fullness and dizziness. Otologic history i s otherwise unremarkable. AUDIOLOGIC TESTS COMPLETED THIS DATE (See Audiog deep Display for Results): Pure-tone air conduction Pure-tone bone conduction Speech recognition Tympanometry Hearing aid clean/check-binaural Hearing aid exam/selection-binaural Standard curriculum of care and counseling 30 mi n RESULTS: Results are essentially unchanged as compared to previous data. To view results: Go to Tools, Audiology, Audiogram Display. Today 's results are reliable and can be used for rating purposes. The [place] amiando C word lists were utilized today. TYMPANOMETRY: RIGHT EAR: Type: A Pressure: Normal Compliance: Normal Volume: Normal LEFT EAR: Type: A Pressure: Normal Compliance: Normal Volume: Normal DIAGNOSIS: Right: Normal to severe sensorineural hearing lo ss with 92% word recognition abilities. Tympanometry reveals normal middle ea r function. Left: Mild to moderately-severe sensorineural he aring loss with 88% word recognition abilities. Tympanometry reveals norm al middle ear function. Hearing aid-right: Make: Phonak Model: Exelia ART Micro Style: Open fit BTE Serial #: [id number] Hearing aid-left: Make: Phonak Model: Exelia ART Micro Style: Open fit BTE Serial #: [id number] HEARING AID SERVICE AND PROGRAMMING: Domes and tubes were replaced. Listening check r eveals good sound quality. Hearing aids programmed were not program med to today's audiogram as Phonak PFG software is no longer supported or installed on our [employer] platform. HEARING AID ORDER: [place] is currently eligible for VA issued aid/ s. Phonak Audeo P90-M SCARLET hearing aid/s (silver french, size 2 M receivers, medium open domes) were selected and ordered today. [place] CURRICULUM OF COUNSELING AND RECOMMEND ATIONS (30 min): [place] will return in 2-3 months for a 1 hour f itting appointment. was counseled on the standard curriculum related to the hazards of noise exposure and protecting hearing by wearing hearing protection. was counseled on the standard curriculum of realistic expectations associated with adjusting to hearing aids and us e of the new rechargeable devices. counseled on the standard curriculum of effective communication strategies such as maintaining face to f nazia contact when speaking, eliminating background noise when possible, and talking at a close distance. Monitor hearing annually for increase in asymmetry of hearing loss. If otologic symptoms arise or asymmetry increases, ENT refer ral may be warranted at this time. /es/ NETO JAMIL DIRECTOR, HEARING IMPLANT PROGRAM Signed: 04/10/2021 12:14
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
--- OUTSIDE RECORDS SUMMARY | 2022-03-17 11:15 | XMS_ITS | Encounter Summary ---
:1945 Author Organization [facility] Address [address] [place] [address] Support Name Relationship Address Phone PRACHI ANDERSON Unavailable [address] [facility] [phone] [place] [address] SHREE ANDERSON Unavailable [address] [facility] [place] [address] Insurance Providers: All historical and current Section [...] MEDICARE MEDICARE PART Dec 07, PART B [id number] 800 JUSTIN,LINDSAY P ATIENT (WNR) (M) B 1991 08A [phone] [place] MEDICARE MEDICARE PART Dec 07, PART B [id number] 800 JUSTIN,LINDSAY P ATIENT (WNR) (M) B [phone] [place] MED[place] MEDICARE PART Apr 08, PART A [id number] 800 JUSTIN,LINDSAY P ATIENT (WNR) (M) A 1991 08A [phone] [place] MEDICARE PART Apr 08, PART A [id number] 800 JUSTIN,LINDSAY P ATIENT (WNR) (M) A [phone] [place] Selected Encounter This section includes the information on record at [place] for the Encounter. Date/Time Encounter Type Encounter Reason Provider Source Description August 21, 2021 [facility] ICD-10-CM L60.3 CORNELL CLAROS 01:00 PM PER VISIT Nail dystrophy NE A with Provider Comments: Nail dystrophy IHE Encounter Template Text not used by [place] Assessments - Encounter Diagnoses This section includes the primary and secondary diagnoses documented for the Encounter. Date/Time Primary/Secondary Diagnosis Name Provider Source Diagnosis August 21, 2021 PRIMARY Nail dystrophy CORNELL CLAROS [facility] 01:50 PM [facility] Plan of Treatment: Future Appointments (+ 6 months) and Future Tests (+/- 45 days) The Plan of Treatment section includes future care activities for the patient from all [place] treatmentfacilities. This section includes future appointments and future orders which are active, pending orscheduled.Future Appointments This section includes appointments that were scheduled to occur 6 months from the date of the Encounter, up to a maximum of 20 appointments. The data comes from all [place] treatment facilities. Appointment Date/Time Appointment Type Appointment Facili ty Name Dec 06, 2021 11:15 AM AMBULATORY - MEDICINE [facility] Dec 20, 2021 04:00 PM AMBULATORY - NONE [facility] Jan 16, 2022 02:30 PM AMBULATORY - MEDICINE [facility] Feb 13, 2022 02:30 PM AMBULATORY - SURGERY [facility] Social History: Smoking Status (Most current) and Tobacco Use (All prior to encounter date) This section includes the most current, and the historical, smoking and tobacco-related health factors from the [place] facility where the Encounter took place.Current Smoking Status This section includes the most current smoking, or tobacco-related health factor, from the [place] facility where the Encounter took place. Date/Time Current Smoking Status Comment Facility Nov 07, 2020 09:15 AM VA-TOBACCO FORMER USER [facility] Tobacco Use History This section includes a history of the smoking, or tobacco- related health factors, that were collected on or before the date of the Encounter. The data comes from the [place] facility where the Encounter took place. Date/Time Smoking Status/Tobacco Use Comment [facility] Nov 07, 2020 09:15 AM VA-TOBACCO QUIT [address] [facility] September 04, 2018 09:00 AM VA-TOBACCO USE [address] [facility] September 04, 2018 09:00 AM VA-TOBACCO USE ADVICE [facility] September 04, 2018 09:00 AM VA-TOBACCO USE ACTUARY NO [facility] September 04, 2018 09:00 AM [facility] September 04, 2018 09:00 AM VA-TOBACCO USE WI [address] [facility] September 04, 2018 09:00 AM VA-TOBACCO USER EVERY DAY [facility] Sep 09, 2017 09:41 AM FORMER TOBACCO USE >1Y <7Y [facility] Oct 01, 2016 03:22 PM CURRENT TOBACCO USER [facility] September 02, 2015 03:18 PM FORMER TOBACCO USE <1Y [facility] August 18, 2014 10:08 AM FORMER TOBACCO USE >1Y <7Y [facility] Oct 14, 2013 09:37 AM CURRENT TOBACCO USER [facility] Oct 07, 2012 10:00 AM CURRENT TOBACCO USER [facility] Oct 02, 2011 08:10 AM CURRENT TOBACCO USER [facility] Sep 30, 2009 11:25 AM CURRENT TOBACCO USER [facility] Encounter Notes: All associated encounter notes This section contains the clinical notes associated to the Encounter. Date/Time Encounter Note(s) Provider Source August 21, 2021 01:49 PM PODIATRY NURSING NOTE: MELINA CLAROS [facility] LOCAL TITLE: PODIATRY CLINIC NURSING NOTE STANDARD TITLE: PODIATRY NURSING NOTE DATE OF NOTE: AUGUST 21, 2021@13:49 ENTRY DATE: AUGUST 21, 2021@13:49:41 AUTHOR: MELINA CLAROS EXP COSIGNER: URGENCY: STATUS: COMPLETED Routine Nail Care Description Nails 1-5 elongated Trimmed Nails 1-5 skin care to feet skin care to web spaces Description Nails 6-10 elongated Treatment Nails 6-10 skin care to feet skin care to web spaces Plan notified as appropriate Return to [id number] in 3 Month s Trimmed nails X10. Diagnosis: Dystrophic nails. /es/ MELINA CLAROS RN, WTA-C, [facility] REGISTERED NURSE Signed: 08/21/2021 13:50
--- OUTSIDE RECORDS SUMMARY | 2022-03-17 11:15 | XMS_ITS | Encounter Summary ---
:1945 Author Organization [facility] Address [address] [place] [address] Support Name Relationship Address Phone PRACHI ANDERSON Unavailable [id number] [facility] [phone] [place] [address] SHREE ANDERSON Unavailable 1966 [facility] [place] [address] Insurance Providers: All historical and current Section [...] MEDICARE MEDICARE PART Dec 07, PART B [id number] 800 JUSTIN,LINDSAY P ATIENT (WNR) (M) B 1991 [id number] [phone] [place] MEDICARE MEDICARE PART Dec 07, PART B [id number] 800 JUSTIN,LINDSAY P ATIENT (WNR) (M) B [id number] [phone] [place] MEDIC[place] MEDICARE PART Apr 08, PART A [id number] 800 JUSTIN,LINDSAY P ATIENT (WNR) (M) A 1991 08A [phone] [place] MED[place] MEDICARE PART Apr 08, PART A [id number] 800 JUSTIN,LINDSAY P ATIENT (WNR) (M) A [id number] [phone] [place] Selected Encounter This section includes the information on record at [place] for the Encounter. Date/Time Encounter Type Encounter Description Reason Provider Source Oct 13, 2021 01:35 Outpatient Encounter SLEEP MEDICINE PM IHE Encounter Template Text not used by [place] Plan of Treatment: Future Appointments (+ 6 months) and Future Tests (+/- 45 days) The Plan of Treatment section includes future care activities for the patient from all [place] treatmentfacilities. This section includes future appointments and future orders which are active, pending orscheduled.Future Appointments This section includes appointments that were scheduled to occur 6 months from the date of the Encounter, up to a maximum of 20 appointments. The data comes from all [place] treatment facilities. Appointment Date/Time Appointment Type Appointment Facili ty Name Dec 06, 2021 11:15 AM AMBULATORY - MEDICINE [facility] Dec 20, 2021 04:00 PM AMBULATORY - NONE [facility] Jan 16, 2022 02:30 PM AMBULATORY - MEDICINE [facility] Feb 13, 2022 02:30 PM AMBULATORY - SURGERY [facility] Social History: Smoking Status (Most current) and Tobacco Use (All prior to encounter date) This section includes the most current, and the historical, smoking and tobacco-related health factors from the [place] facility where the Encounter took place.Current Smoking Status This section includes the most current smoking, or tobacco-related health factor, from the [place] facility where the Encounter took place. Date/Time Current Smoking Status Comment Facility Nov 07, 2020 09:15 AM VA-TOBACCO FORMER USER [facility] Tobacco Use History This section includes a history of the smoking, or tobacco- related health factors, that were collected on or before the date of the Encounter. The data comes from the [place] facility where the Encounter took place. Date/Time Smoking Status/Tobacco Use Comment Facil it Nov 07, 2020 09:15 AM VA-TOBACCO QUIT 15 YRS OR MORE [facility] September 04, 2018 09:00 AM VA-TOBACCO USE 30 YEARS OR MORE [facility] September 04, 2018 09:00 AM VA-TOBACCO USE AD[facility]ICE [facility] September 04, 2018 09:00 AM VA-TOBACCO USE INNOVATIONS PARAPROFESSIONAL NO [facility] September 04, 2018 09:00 AM VA-TOBACCO USE MED NO [facility] September 04, 2018 09:00 AM VA-TOBACCO USE WI 30 MIN OF WAKEUP [facility] September 04, 2018 09:00 AM VA-TOBACCO USER EVERY DAY [facility] Sep 09, 2017 09:41 AM FORMER TOBACCO USE >1Y <7Y [facility] Oct 01, 2016 03:22 PM CURRENT TOBACCO USER [facility] MOLLY [facility] September 02, 2015 03:18 PM FORMER TOBACCO USE <1Y [facility] August 18, 2014 10:08 AM FORMER TOBACCO USE >1Y <7Y [facility] Oct 14, 2013 09:37 AM CURRENT TOBACCO USER [facility]I B[facility]ES [facility] Oct 07, 2012 10:00 AM [facility] Oct 02, 2011 08:10 AM [facility] Sep 30, 2009 11:25 AM CURRENT TOBACCO USER [facility] Encounter Notes: All associated encounter notes This section contains the clinical notes associated to the Encounter. Date/Time Encounter Note(s) Provider Source Oct 13, 2021 01:35 PM REPORT OF CONTACT: PIA GANT CHEY [facility] LOCAL TITLE: PATIENT CONTACT NOTE STANDARD TITLE: REPORT OF CONTACT DATE OF NOTE: OCT 13, 2021@13:35 ENTRY DATE: OCT 13, 2021@13:35:34 AUTHOR: PIA GANT EXP COSIGNER: URGENCY: STATUS: COMPLETED PATIENT CONTACT NOTE Has ADDENDA pt left VM stating that he i s in need of filters for his sleep device. pt can be contacted at [phone]. /ariadna/ PIA GANT AMSA Signed: 10/13/2021 13:36 Receipt Acknowledged By: 10/17/2021 17:30 /ariadna/ ELIZABETH ACOSTA RRT REGISTERED RESPIRATORY THERAPIST 10/17/2021 ADDENDUM STATUS: COMPLETED Request already filled on 10/06/21. Pt. states he has not received them yet. PtPavan golden call the clinic again if he does not see it by Saturday. /kwan ACOSTA RRT REGISTERED RESPIRATORY THERAPIST Signed: 10/17/2021 17:33
--- OUTSIDE RECORDS SUMMARY | 2022-03-17 11:15 | XMS_ITS | Encounter Summary ---
:1945 Author Organization [facility] Address [address] [place] [address] Support Name Relationship Address Phone PRACHI ANDERSON Unavailable [id number] [facility] [phone] [place] [address] SHREE ANDERSON Unavailable 1966 [facility] [address] Insurance Providers: All historical and current Section [...] MEDICARE MEDICARE PART Dec 07, PART B [id number] 800 JUSTIN,LINDSAY P ATIENT (WNR) (M) B 1991 08A [phone] [place] MED[place]ARE MEDICARE PART Dec 07, PART B [id number] 800 JUSTIN,LINDSAY P ATIENT (WNR) (M) B [phone] [place] MED[place] MEDICARE PART Apr 08, PART A [id number] 800 JUSTIN,LINDSAY P ATIENT (WNR) (M) A 1991 08A [phone] [place] MED[place]ARE MEDICARE PART Apr 08, PART A [id number] 800 JUSTIN,LINDSAY P ATIENT (WNR) (M) A [phone] [place] Selected Encounter This section includes the information on record at [place] for the Encounter. Date/Time Encounter Type Encounter Reason Provider Source Description Mar 29, 2021 [facility] FOOT CARE PODIATRY ICD-10-CM L60.3 CHAD MORRISON 01:30 PM PER VISIT Nail dystrophy with Provider Comments: Nail dystrophy IHE Encounter Template Text not used by [place] Assessments - Encounter Diagnoses This section includes the primary and secondary diagnoses documented for the Encounter. Date/Time Primary/Secondary Diagnosis Name Provider Source Diagnosis Mar 29, 2021 PRIMARY Nail dystrophy CHAD MORRISON [facility] 02:12 PM [facility] Plan of Treatment: Future Appointments (+ 6 months) and Future Tests (+/- 45 days) The Plan of Treatment section includes future care activities for the patient from all [place] treatmentfacilities. This section includes future appointments and future orders which are active, pending orscheduled.Future Appointments This section includes appointments that were scheduled to occur 6 months from the date of the Encounter, up to a maximum of 20 appointments. The data comes from all [place] treatment facilities. Appointment Date/Time Appointment Type Appointment Facili ty Name Apr 10, 2021 10:45 AM AMBULATORY - SURGERY [facility] Jun 01, 2021 01:30 PM AMBULATORY - SURGERY [facility] Jun 07, 2021 12:30 PM AMBULATORY - SURGERY [facility] August 11, 2021 10:00 AM AMBULATORY - SURGERY [facility] August 21, 2021 01:00 PM AMBULATORY - SURGERY [facility] Social History: Smoking Status (Most current) and Tobacco Use (All prior to encounter date) This section includes the most current, and the historical, smoking and tobacco-related health factors from the [place] facility where the Encounter took place.Current Smoking Status This section includes the most current smoking, or tobacco-related health factor, from the [place] facility where the Encounter took place. Date/Time Current Smoking Status Comment Facility Nov 07, 2020 09:15 AM VA-TOBACCO FORMER USER [facility] Tobacco Use History This section includes a history of the smoking, or tobacco- related health factors, that were collected on or before the date of the Encounter. The data comes from the [place] facility where the Encounter took place. 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 [facility] September 04, 2018 09:00 AM VA-TOBACCO USE MED NO KERLINE [facility] September 04, 2018 09:00 AM VA-TOBACCO USE WI 30 MIN OF WAKEUP [facility] September 04, 2018 09:00 AM VA-TOBACCO USER EVERY DAY [facility] Sep 09, 2017 09:41 AM FORMER TOBACCO USE >1Y <7Y [facility] Oct 01, 2016 03:22 PM CURRENT TOBACCO USER [facility] September 02, 2015 03:18 PM FORMER TOBACCO USE <1Y MIN [facility] August 18, 2014 10:08 AM FORMER TOBACCO USE >1Y <7Y [facility] Oct 14, 2013 09:37 AM CURRENT TOBACCO USER [facility] Oct 07, 2012 10:00 AM CURRENT TOBACCO USER [facility] Oct 02, 2011 08:10 AM CURRENT TOBACCO USER [facility] Sep 30, 2009 11:25 AM CURRENT TOBACCO USER [facility] Encounter Notes: All associated encounter notes This section contains the clinical notes associated to the Encounter. Date/Time Encounter Note(s) Provider Source Mar 29, 2021 02:11 PM PODIATRY NURSING NOTE: CHAD MORRISON [facility] LOCAL TITLE: PODIATRY CLINIC NURSING NOTE STANDARD TITLE: PODIATRY NURSING NOTE DATE OF NOTE: MAR 29, 2021@14:11 ENTRY DATE: MAR 29, 2021@14:11:34 AUTHOR: CHAD MORRISON EXP COSIGNER: URGENCY: STATUS: COMPLETED Routine Nail Care Description Nails 1-5 elongated thickening Trimmed Nails 1-5 skin care to feet skin care to web spaces Description Nails 6-10 elongated thickening Treatment Nails 6-10 skin care to feet skin care to web spaces Plan notified as appropriate [id number] Trimmed toenails x10, diagnosis-dystrophic nails . /ariadna/ Chad Morrison LPN LICENSED PRACTICAL NURSE Signed: 03/29/2021 14:12
--- OUTSIDE RECORDS SUMMARY | 2022-03-17 11:15 | XMS_ITS | Encounter Summary ---
:1945 Author Organization [facility] Address [address] [place] [address] Support Name Relationship Address Phone PRACHI ANDERSON Unavailable [address] [facility] [place] [address] SHREE ANDERSON Unavailable 1966 [place] [address] Insurance Providers: All historical and current Section [...] MEDICARE MEDICARE PART Dec 07, PART B [id number] 800 JUSTIN,LINDSAY P ATIENT (WNR) (M) B 1991 08A [phone] [place] MEDICARE MEDICARE PART Dec 07, PART B [id number] 800 JUSTIN,LINDSAY P ATIENT (WNR) (M) B [id number] [phone] [place] MED[place] MEDICARE PART Apr 08, PART A [id number] 800 JUSTIN,LINDSAY P ATIENT (WNR) (M) A 1991 08A [phone] [place] MED[place]ARE MEDICARE PART Apr 08, PART A [id number] 800 JUSTIN,LINDSAY P ATIENT (WNR) (M) A [id number] [phone] [place] Selected Encounter This section includes the information on record at [place] for the Encounter. Date/Time Encounter Type Encounter Description Reason Provider Source Sep 26, 2021 08:41 Outpatient Encounter TELEPHONE/MEDICINE AM IHE Encounter Template Text not used by [place] Plan of Treatment: Future Appointments (+ 6 months) and Future Tests (+/- 45 days) The Plan of Treatment section includes future care activities for the patient from all [place] treatmentfacilities. This section includes future appointments and future orders which are active, pending orscheduled.Future Appointments This section includes appointments that were scheduled to occur 6 months from the date of the Encounter, up to a maximum of 20 appointments. The data comes from all [place] treatment facilities. Appointment Date/Time Appointment Type Appointment Facili ty Name Dec 06, 2021 11:15 AM AMBULATORY - MEDICINE [facility] Dec 20, 2021 04:00 PM AMBULATORY - NONE [facility] Jan 16, 2022 02:30 PM AMBULATORY - MEDICINE [facility] Feb 13, 2022 02:30 PM AMBULATORY - SURGERY [facility] Social History: Smoking Status (Most current) and Tobacco Use (All prior to encounter date) This section includes the most current, and the historical, smoking and tobacco-related health factors from the [place] facility where the Encounter took place.Current Smoking Status This section includes the most current smoking, or tobacco-related health factor, from the [place] facility where the Encounter took place. Date/Time Current Smoking Status Comment Facility Nov 07, 2020 09:15 AM VA-TOBACCO FORMER USER MIN [facility] Tobacco Use History This section includes a history of the smoking, or tobacco- related health factors, that were collected on or before the date of the Encounter. The data comes from the [place] facility where the Encounter took place. 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 [facility] September 04, 2018 09:00 AM VA-TOBACCO USE MED NO [facility] September 04, 2018 09:00 AM VA-TOBACCO USE WI 30 MIN OF WAKEUP [facility] September 04, 2018 09:00 AM VA-TOBACCO USER EVERY DAY [facility] Sep 09, 2017 09:41 AM FORMER TOBACCO USE >1Y <7Y [facility] Oct 01, 2016 03:22 PM CURRENT TOBACCO USER [facility] September 02, 2015 03:18 PM FORMER TOBACCO USE <1Y MIN [facility] August 18, 2014 10:08 AM FORMER TOBACCO USE >1Y <7Y [facility] Oct 14, 2013 09:37 AM CURRENT TOBACCO USER [facility]RISTI BARNES [facility] Oct 07, 2012 10:00 AM CURRENT TOBACCO USER CHRISTI SANTANAS [facility] Oct 02, 2011 08:10 AM CURRENT TOBACCO USER CHRISTI SANTANAS [facility] Sep 30, 2009 11:25 AM CURRENT TOBACCO USER [facility] Encounter Notes: All associated encounter notes This section contains the clinical notes associated to the Encounter. Date/Time Encounter Note(s) Provider Source Sep 26, 2021 08:41 AM REPORT OF CONTACT: MAREK RAMReuben [facility] LOCAL TITLE: PATIENT CONTACT NOTE STANDARD TITLE: REPORT OF CONTACT DATE OF NOTE: SEP 26, 2021@08:41 ENTRY DATE: SEP 26, 2021@08:41:28 AUTHOR: MAREK RAM EXP COSIGNER: URGENCY: STATUS: COMPLETED Patient contact Name of [place]: JUSTINESTHER SWANN Name/Relationship of Contact if other than Veter an: Date & Time of Contact: Sep@08:41 Type of Contact: Telephone Reason for Contact: Patient called left message questions on recall and getting new filters, jingle writer attempted to call back left message to call [phone] advise good time to call him back. /ariadna/ MAREK RAM ADVANCED MSA Signed: 09/26/2021 08:42
--- OUTSIDE RECORDS SUMMARY | 2022-03-17 11:16 | XMS_ITS | Encounter Summary ---
:1945 Author Organization [facility] Address [address] [place] [address] Support Name Relationship Address Phone PRACHI ANDERSON Unavailable [id number] [facility] [phone] [place] [address] SHREE ANDERSON Unavailable 1966 [place] [address] Insurance Providers: All historical and current Section [...] MEDICARE MEDICARE PART Dec 07, PART B [id number] 800 JUSTIN,LINDSAY P ATIENT (WNR) (M) B 1991 [phone] [place] MEDICARE MEDICARE PART Dec 07, PART B [id number] 800 JUSTIN,LINDSAY P ATIENT (WNR) (M) B [id number] [phone] [place] MED[place] MEDICARE PART Apr 08, PART A [id number] 800 JUSTIN,LINDSAY P ATIENT (WNR) (M) A 1991 [id number] [phone] [place] MEDICARE MEDICARE PART Apr 08, PART A [id number] 800 JUSTIN,LINDSAY P ATIENT (WNR) (M) A [phone] [place] Selected Encounter This section includes the information on record at [place] for the Encounter. Date/Time Encounter Type Encounter Reason Provider Source Description Dec 20, 2021 PRO PHONE TELEPHONE PRIMARY ICD-10-CM NOEL 04:00 PM CALL 11-20 MIN CARE Z72.0 Tobacco E,ANDYROSE use with Provider Comments: Tobacco use (SCT [id number]) IHE Encounter Template Text not used by [place] Assessments - Encounter Diagnoses This section includes the primary and secondary diagnoses documented for the Encounter. Date/Time Primary/Secondary Diagnosis Name Provider Source Diagnosis Dec 20, 2021 PRIMARY Tobacco use WADDELLLaineKATHERYN ARMONA Alexander Alexis 04:00 PM [facility] Plan of Treatment: Future Appointments (+ 6 months) and Future Tests (+/- 45 days) The Plan of Treatment section includes future care activities for the patient from all [place] [facility] This section includes future appointments and future orders which are active, pending orscheduled.Future Appointments This section includes appointments that were scheduled to occur 6 months from the date of the Encounter, up to a maximum of 20 appointments. The data comes from all [place] treatment facilities. Appointment Date/Time Appointment Type Appointment Facili ty Name Jan 16, 2022 02:30 PM AMBULATORY - MEDICINE [facility] Feb 13, 2022 02:30 PM [facility] - [facility] Active, Pending, and Scheduled Orders This section includes a listing of several types of active, pending, and scheduled orders, including clinic medications orders, diagnostic test orders, procedure orders and consult orders; where the start date of the order is 45 days before the date of the Encounter or 45 days after the date of the Encounter. The data comes from all [place] treatment facilities. Test Date/Time Test Type Test Details Facility Name Dec 27, 2021 03:22 PM Consult Order COMMUNITY [facility]-PODIATRY Co ns [facility] National Sales Manager's Choice Social History: Smoking Status (Most current) and Tobacco Use (All prior to encounter date) This section includes the most current, and the historical, smoking and tobacco-related health factors from the [place] facility where the Encounter took place.Current Smoking Status This section includes the most current smoking, or tobacco-related health factor, from the [place] facility where the Encounter took place. Date/Time Current Smoking Status Comment Facility Dec 06, 2021 11:15 AM VA-TOBACCO USER EVERY DAY [facility] Tobacco Use History This section includes a history of the smoking, or tobacco- related health factors, that were collected on or before the date of the Encounter. The data comes from the [place] facility where the Encounter took place. 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 [facility] Dec 06, 2021 11:15 AM VA-TOBACCO USE MED NO [facility]ERLINE [facility] Dec 06, 2021 11:15 AM VA-TOBACCO USER EVERY DAY [facility] Nov 07, 2020 09:15 AM VA-TOBACCO FORMER USER MIN [facility] Nov 07, 2020 09:15 AM VA-TOBACCO QUIT 15 YRS OR MORE [facility] September 04, 2018 09:00 AM VA-TOBACCO USE 30 YEARS OR MORE [facility] September 04, 2018 09:00 AM VA-TOBACCO USE ADVICE [facility] September 04, 2018 09:00 AM 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 [facility] September 04, 2018 09:00 AM VA-TOBACCO USE MED NO [facility] September 04, 2018 09:00 AM VA-TOBACCO USE WI 30 MIN OF WAKEUP [facility] September 04, 2018 09:00 AM VA-TOBACCO USER EVERY DAY [facility] Sep 09, 2017 09:41 AM FORMER TOBACCO USE >1Y <7Y [facility] Oct 01, 2016 03:22 PM CURRENT TOBACCO USER [facility] September 02, 2015 03:18 PM FORMER TOBACCO USE <1Y MIN [facility] August 18, 2014 10:08 AM FORMER TOBACCO USE >1Y <7Y [facility] Oct 14, 2013 09:37 AM CURRENT TOBACCO USER [facility] Oct 07, 2012 10:00 AM CURRENT TOBACCO USER [facility] Oct 02, 2011 08:10 AM CURRENT TOBACCO USER [facility] Sep 30, 2009 11:25 AM CURRENT TOBACCO USER [facility] Encounter Notes: All associated encounter notes This section contains the clinical notes associated to the Encounter. Date/Time Encounter Note(s) Provider Source Dec 20, 2021 04:09 PM SMOKING CESSATION GROUP COUNSELING NOT E: JAIMEE,AND [facility] LOCAL TITLE: TOBACCO TREATMENT TEAM NOTE YROSE STANDARD TITLE: SMOKING CESSATION GROUP COUNSELI NG NOTE DATE OF NOTE: DEC 20, 2021@16:09 ENTRY DATE: DEC 20, 2021@16:09:53 AUTHOR: JOSE HERMOSILLO COSIGNER: URGENCY: STATUS: COMPLETED Visit Type: Phone BACKGROUND: Patient is a 76 year old MALE referred to PACT p bonnie to discuss tobacco cessation. Patient jokingly states he has been i nterested in quitting smoking for 60 years. He states his wants him to quit smoking, but he does not want to quit. I am too old to qu it. My lungs are clear. He also notes he has had many family members that smoked yet have lived l [place] and from causes unrelated to smoking PATIENT REPORTS THE FOLLOWING: Current Tobacco Use: Cigars - [place] Dark Stou t Amount per day: 5-7 cigars per day 1st Tobacco use of the Day: Highest Daily Use in the Past: used to smoke 2pp d cigarettes Years of Tobacco Use: >60 years Number of Quit Attempts: many Longest Period of Abstinence: 2 years - cold turkey - was motivated - relapsed when his father Medications and/or Counseling Used in the Past(w hat worked, what didn't): -I am allergic to most of the no smoking drugs -'Chantix' caused nightmares - Cold turkey -a different pill caused me to itch - Nicotine Patch and Gum - did not work Reason(s) for quitting: -his wants him to quit Barrier(s) to quitting: -does not want to quit Desired Quit Date: None, not ready to quit Patient's medical history re viewed for contraindications/precautions to tobacco cessation therapy. Dentures: No History of Seizures: No Liver/Kidney Dysfunction: No Active Mental Health Condition: No Caffeine intake: Alcohol intake: None. Quit 50 years ago Have you experienced any of the following: Difficulty driving, operating heavy machinery o r excessive drowsiness: No Hallucinations or visual disturbances: No Nightmares or difficulty sleeping: No Tremors, muscle spasms, cramps: No Nausea, taste disturbance: No Current Medication: none ASSESSMENT: Patient IS NOT ready to quit in the next month a nd is NOT thinking about quitting. Discussed medicati on options that will be available to him when he is ready to quit. Discussed health benefits of quit ting smoking. PLAN: No Pharmacotherapy FOLLOW UP: None. Patient to call PACT team when he is ready to quit Time Spent: 17 minutes /ariadna/ SALLY HERMOSILLO PharmD, BCPS Clinical Tool Dresser, PACT Signed: 12/27/2021 12:10
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
--- OUTSIDE RECORDS SUMMARY | 2022-03-17 11:16 | XMS_ITS | Encounter Summary ---
:1945 Author Organization [facility] Address [address] [place] [id number] Support Name Relationship Address Phone PRACHI ANDERSON Unavailable [address] [place] [address] SHREE ANDERSON Unavailable 1966 [facility] [address] Insurance Providers: All historical and current Section [...] MEDICARE MEDICARE PART Dec 07, PART B [id number] 800 JUSTIN,LINDSAY P ATIENT (WNR) (M) B 1991 [id number] [phone] [place] MEDICARE MEDICARE PART Dec 07, PART B [id number] 800 JUSTIN,LINDSAY P ATIENT (WNR) (M) B [id number] [phone] [place] MEDICARE MEDICARE PART Apr 08, PART A [id number] 800 JUSTIN,LINDSAY P ATIENT (WNR) (M) A 1991 [id number] [phone] [place] MEDICARE MEDICARE PART Apr 08, PART A [id number] 800 JUSTIN,LINDSAY P ATIENT (WNR) (M) A [id number] [phone] [place] Selected Encounter This section includes the information on record at [place] for the Encounter. Date/Time Encounter Type Encounter Description Reason Provider Source Oct 23, 2021 12:00 Outpatient Encounter EVENT (HISTORICAL) AM E Encounter Template Text not used by [facility] Plan of Treatment: Future Appointments (+ 6 months) and Future Tests (+/- 45 days) The Plan of Treatment section includes future care activities for the patient from all [facility] treatmentfacilities. This section includes future appointments and future orders which are active, pending orscheduled.Future Appointments This section includes appointments that were scheduled to occur 6 months from the date of the Encounter, up to a maximum of 20 appointments. The data comes from all [place] treatment facilities. Appointment Date/Time Appointment Type Appointment Facili ty Name Dec 06, 2021 11:15 AM AMBULATORY - MEDICINE [facility] Dec 20, 2021 04:00 PM AMBULATORY - NONE [facility] Jan 16, 2022 02:30 PM AMBULATORY - MEDICINE [facility] Feb 13, 2022 02:30 PM AMBULATORY - SURGERY [facility] Immunizations: All administered on the encounter date This section contains immunizations associated to the Encounter. Immunization Series Date Issued Reaction Comments TDAP Oct 23, 2021 per ZULY
--- OUTSIDE RECORDS SUMMARY | 2022-03-17 11:17 | XMS_ITS | Encounter Summary ---
:1945 Author Organization [facility] Address [address] [place] [id number] Support Name Relationship Address Phone PRACHI ANDERSON Unavailable [id number] [facility] [place] [address] SHREE ANDERSON Unavailable 1966 [facility] [place] [address] Insurance Providers: All historical and current Section [...] MEDICARE MEDICARE PART Dec 07, PART B [id number] 800 JUSTIN,LINDSAY P ATIENT (WNR) (M) B 1991 08A [phone] [place] MEDICARE MEDICARE PART Dec 07, PART B [id number] 800 JUSTIN,LINDSAY P ATIENT (WNR) (M) B [id number] [phone] [place] MEDICARE MEDICARE PART Apr 08, PART A [id number] 800 JUSTIN,LINDSAY P ATIENT (WNR) (M) A 1991 [id number] [phone] [place] MEDICARE MEDICARE PART Apr 08, PART A [id number] 800 JUSTIN,LINDSAY P ATIENT (WNR) (M) A [phone] [place] Selected Encounter This section includes the information on record at [place] for the Encounter. Date/Time Encounter Type Encounter Reason Provider Source Description Jan 16, 2022 PT EDUCATION SLEEP MEDICINE ICD-10-CM G47.30 ERA JERRY 02:30 PM NOC INDIVID Sleep apnea, LADY HERNÁNDEZ unspecified with Provider Comments: Obstructive sleep apnea (SCT [id number]) IHE Encounter Template Text not used by [place] Assessments - Encounter Diagnoses This section includes the primary and secondary diagnoses documented for the Encounter. Date/Time Primary/Secondary Diagnosis Name Provider Source Diagnosis Jan 16, 2022 PRIMARY Sleep apnea, ROSALINO,ERA WEISER V A 02:21 PM unspecified [facility] Plan of Treatment: Future Appointments (+ 6 months) and Future Tests (+/- 45 days) The Plan of Treatment section includes future care activities for the patient from all [place] [facility]. This section includes future appointments and future orders which are active, pending orscheduled.Future Appointments This section includes appointments that were scheduled to occur 6 months from the date of the Encounter, up to a maximum of 20 appointments. The data comes from all [facility]. Appointment Date/Time Appointment Type Appointment Facili ty Name Feb 13, 2022 02:30 PM AMBULATORY - SURGERY [facility] S Active, Pending, and Scheduled [...] the Encounter. The data comes from all [facility]. Test Date/Time Test Type Test Details Facility Name Dec 27, 2021 03:22 PM Consult Order COMMUNITY CARE-PODIATRY Co ns [facility] Pre Fabricator's Choice Social History: Smoking Status (Most current) and Tobacco Use (All prior to encounter date) This section includes the most current, and the historical, smoking and tobacco-related health factors from the [place] facility where the Encounter took place.Current Smoking Status This section includes the most current smoking, or tobacco-related health factor, from the [place] facility where the Encounter took place. Date/Time Current Smoking Status Comment Facility Dec 06, 2021 11:15 AM VA-TOBACCO USER EVERY DAY [facility] Tobacco Use History This section includes a history of the smoking, or tobacco- related health factors, that were collected on or before the date of the Encounter. The data comes from the [place] facility where the Encounter took place. Date/Time Smoking Status/Tobacco Use Comment Facil ity Dec 06, 2021 11:15 AM VA-TOBACCO USE 30 YEARS OR MORE [facility] Dec 06, 2021 11:15 AM VA-TOBACCO USE ADVICE KERLINE [facility] Dec 06, 2021 11:15 AM VA-TOBACCO USE STUDIO MUSICIAN NO [facility] Dec 06, 2021 11:15 AM VA-TOBACCO USE MED NO [facility] Dec 06, 2021 11:15 AM VA-TOBACCO USER EVERY DAY [facility] Nov 07, 2020 09:15 AM VA-TOBACCO FORMER USER MIN [facility] Nov 07, 2020 09:15 AM VA-TOBACCO QUIT 15 YRS OR MORE [facility] September 04, 2018 09:00 AM VA-TOBACCO USE 30 YEARS OR MORE [facility] September 04, 2018 09:00 AM VA-TOBACCO USE ADVICE MINDm [facility] September 04, 2018 09:00 AM VA-TOBACCO USE STUDIO MUSICIAN NO [facility] September 04, 2018 09:00 AM [facility]AC[facility] September 04, 2018 09:00 AM VA-TOBACCO USE WI 30 MIN OF WAKEUP [facility] September 04, 2018 09:00 AM VA-TOBACCO USER EVERY DAY [facility] Sep 09, 2017 09:41 AM FORMER TOBACCO USE >1Y <7Y [facility] Oct 01, 2016 03:22 PM CURRENT TOBACCO USER [facility] September 02, 2015 03:18 PM FORMER TOBACCO USE <1Y MIN [facility] August 18, 2014 10:08 AM FORMER TOBACCO USE >1Y <7Y [facility] Oct 14, 2013 09:37 AM CURRENT TOBACCO USER [facility] Oct 07, 2012 10:00 AM CURRENT TOBACCO USER [facility] Oct 02, 2011 08:10 AM CURRENT TOBACCO USER [facility] Sep 30, 2009 11:25 AM CURRENT TOBACCO USER [facility] Encounter Notes: All associated encounter notes This section contains the clinical notes associated to the Encounter. Date/Time Encounter Note(s) Provider Source Jan 16, 2022 02:16 PM SLEEP MEDICINE NOTE: JOVON JERRY [facility] LOCAL TITLE: SLEEP MEDICINE NOTE BETTY STANDARD TITLE: SLEEP MEDICINE NOTE DATE OF NOTE: JAN 16, 2022@14:16 ENTRY DATE: JAN 16, 2022@14:16:27 AUTHOR: JOVON JERRY EXP COSIGNER: URGENCY: STATUS: COMPLETED Patient seen in clinic today for diagnosis of: O SA Complained of CPAP unit not working Download Dec - most recent usage Current settings: APAP 6-20 cmH2O 90% pressure: 7 cmH2O Compliance: Usage 100%; 6 average hours/night Mask seal: 12 L/min unintentional leak Apnea/Hypopnea Index (AHI): 0.3 per hour Problem addressed: Patient suspended usage due to device falling on floor and then producing a gurgling sound. RT checked device and it funct ions as designed, pressure tested with manometer without issue. RT discussed that water was either in the tubing and mask, which the patient denie s, or the air box had water. RT showed patient air box and how it is designed to captur e water that may accidentally enter device. Patient instructed to call with problems/questio ns or if symptoms aren't improved. /ariadna/ JOVON JERRY, PATTERNMAKER PRESSURE CAST PATTERNMAKER PRESSURE CAST Signed: 01/16/2022 14:21
--- OUTSIDE RECORDS SUMMARY | 2022-03-17 11:17 | XMS_ITS | Encounter Summary ---
:1945 Author Organization [facility] Address [address] [place] [id number] Support Name Relationship Address Phone PRACHI ANDERSON Unavailable [address] [place] [address] SHREE ANDERSON Unavailable 1966 [place] [address] Insurance Providers: All historical and current Section [...] MEDICARE MEDICARE PART Dec 07, PART B [id number] 800 JUSTIN,LINDSAY P ATIENT (WNR) (M) B 1991 [phone] [place] MEDICARE MEDICARE PART Dec 07, PART B [id number] 800 JUSTIN,LINDSAY P ATIENT (WNR) (M) B [id number] [phone] [place] MEDICARE MEDICARE PART Apr 08, PART A [id number] 800 JUSTIN,LINDSAY P ATIENT (WNR) (M) A 1991 08A [phone] [place] MEDICARE MEDICARE PART Apr 08, PART A [id number] 800 JUSTIN,LINDSAY P ATIENT (WNR) (M) A [id number] [phone] [place] Selected Encounter This section includes the information on record at [place] for the Encounter. Date/Time Encounter Type Encounter Description Reason Provider Source Jan 22, 2022 09:56 Outpatient Encounter TELEPHONE/MEDICINE AM IHE Encounter Template Text not used by [place] Plan of Treatment: Future Appointments (+ 6 months) and Future Tests (+/- 45 days) The Plan of Treatment section includes future care activities for the patient from all [place] treatmentfacilities. This section includes future appointments and future orders which are active, pending orscheduled.Future Appointments This section includes appointments that were scheduled to occur 6 months from the date of the Encounter, up to a maximum of 20 appointments. The data comes from all [facility]. Appointment Date/Time Appointment Type Appointment Facili ty Name Feb 13, 2022 02:30 PM AMBULATORY - SURGERY [facility] S Active, Pending, and Scheduled Orders This section includes a listing of several types of active, pending, and scheduled orders, including clinic medications orders, diagnostic test orders, procedure orders and consult orders; where the start date of the order is 45 days before the date of the Encounter or 45 days after the date of the Encounter. The data comes from all [facility]. Test Date/Time Test Type Test Details Facility Name Dec 27, 2021 03:22 PM Consult Order COMMUNITY CARE-PODIATRY Co fran [facility] Food Services Manager's Choice Social History: Smoking Status (Most current) and Tobacco Use (All prior to encounter date) This section includes the most current, and the historical, smoking and tobacco-related health factors from the [place] facility where the Encounter took place.Current Smoking Status This section includes the most current smoking, or tobacco-related health factor, from the [place] facility where the Encounter took place. Date/Time Current Smoking Status Comment Facility Dec 06, 2021 11:15 AM VA-TOBACCO USER EVERY DAY [facility] Tobacco Use History This section includes a history of the smoking, or tobacco- related health factors, that were collected on or before the date of the Encounter. The data comes from the [place] facility where the Encounter took place. Date/Time Smoking Status/Tobacco Use Comment Facil ity Dec 06, 2021 11:15 AM VA-TOBACCO USE 30 YEARS OR MORE [facility] Dec 06, 2021 11:15 AM VA-TOBACCO USE ADVICE MINN PAYALIS [facility] Dec 06, 2021 11:15 AM VA-TOBACCO USE SUPERINTENDENT INSTITUTION NO [facility] Dec 06, 2021 11:15 AM VA-TOBACCO USE MED NO [facility] Dec 06, 2021 11:15 AM VA-TOBACCO USER EVERY DAY [facility] Nov 07, 2020 09:15 AM VA-TOBACCO FORMER USER MIN NEMOLLY [facility] Nov 07, 2020 09:15 AM VA-TOBACCO QUIT 15 YRS OR MORE [facility] September 04, 2018 09:00 AM VA-TOBACCO USE 30 YEARS OR MORE [facility] September 04, 2018 09:00 AM VA-TOBACCO USE ADVICE KERLINE GRIMES [facility] September 04, 2018 09:00 AM VA-TOBACCO USE SUPERINTENDENT INSTITUTION NO [facility] September 04, 2018 09:00 AM [facility] September 04, 2018 09:00 AM VA-TOBACCO USE WI 30 MIN OF WAKEUP [facility] September 04, 2018 09:00 AM VA-TOBACCO USER EVERY DAY [facility] Sep 09, 2017 09:41 AM FORMER TOBACCO USE >1Y <7Y [facility] Oct 01, 2016 03:22 PM CURRENT TOBACCO USER [facility] September 02, 2015 03:18 PM FORMER TOBACCO USE <1Y MIN [facility] August 18, 2014 10:08 AM FORMER TOBACCO USE >1Y <7Y [facility] Oct 14, 2013 09:37 AM CURRENT TOBACCO USER [facility] Oct 07, 2012 10:00 AM CURRENT TOBACCO USER [facility] Oct 02, 2011 08:10 AM CURRENT TOBACCO USER [facility] Sep 30, 2009 11:25 AM CURRENT TOBACCO USER [facility] Encounter Notes: All associated encounter notes This section contains the clinical notes associated to the Encounter. Date/Time Encounter Note(s) Provider Source Jan 22, 2022 09:56 AM REPORT OF CONTACT: MAREK RAM [facility] LOCAL TITLE: PATIENT CONTACT NOTE STANDARD TITLE: REPORT OF CONTACT DATE OF NOTE: JAN 22, 2022@09:56 ENTRY DATE: JAN 22, 2022@09:56:20 AUTHOR: MAREK RAM EXP COSIGNER: URGENCY: STATUS: COMPLETED PATIENT CONTACT NOTE Has ADDENDA Patient contact Name of [place]: ESTHER ANDERSON Name/Relationship of Contact if other than Veter an: Date & Time of Contact: Jan@09:56 Type of Contact: Telephone Reason for Contact: Patient called left message he got new CPAP mach ine but no power cord only received the mask, would like a call back at /ariadna/ MAREK RAM [employer]VANCED MSA Signed: 01/22/2022 09:56 Receipt Acknowledged By: 01/22/2022 10:57 /es/ JOVON JERRY, CONTENT MANAGEMENT SPECIALIST CONTENT MANAGEMENT SPECIALIST 01/22/2022 ADDENDUM STATUS: COMPLETED All supplies sent from [employer] on 2. RT will send powercord from clinic. Left voice message that cord is being sent and v eteran should follow instructions included from Bridget. Reach out to sleep clinic if further questions or concerns. /ariadna/ JOVON JERRY, CONTENT MANAGEMENT SPECIALIST CONTENT MANAGEMENT SPECIALIST Signed: 01/22/2022 10:59
--- OUTSIDE RECORDS SUMMARY | 2022-03-17 11:17 | XMS_ITS | Encounter Summary ---
:1945 Author Organization [facility] Address [address] [place] [address] Support Name Relationship Address Phone PRACHI ANDERSON Unavailable [id number] [facility] [phone] [place] [address] SHREE ANDERSON Unavailable 1966 [place] [address] Insurance Providers: All historical and current Section [...] MEDICARE MEDICARE PART Dec 07, PART B [id number] 800 JUSTIN,LINDSAY P ATIENT (WNR) (M) B 1991 08A [phone] [place] MED[place] MEDICARE PART Dec 07, PART B [id number] 800 JUSTIN,LINDSAY P ATIENT (WNR) (M) B [phone] [place] MEDIC[place] MEDICARE PART Apr 08, PART A [id number] 800 JUSTIN,LINDSAY P ATIENT (WNR) (M) A 1991 [phone] [place] MED[place]ARE MEDICARE PART Apr 08, PART A [id number] 800 JUSTIN,LINDSAY P ATIENT (WNR) (M) A [phone] [place] Selected Encounter This section includes the information on record at [place] for the Encounter. Date/Time Encounter Type Encounter Reason Provider Source Description Feb 13, 2022 REMOVE IMPACTED AUDIOLOGY ICD-10-CM Z46.1 RUDY BABB 02:30 PM EAR WAX UNI Encounter for F fitting and adjustment of hearing aid with Provider Comments: Encounter for fitting and adjustment of hearing aid IHE Encounter Template Text not used by [facility] Assessments - Encounter Diagnoses This section includes the primary and secondary diagnoses documented for the Encounter. Date/Time Primary/Secondary Diagnosis Name Provider Source Diagnosis Feb 13, 2022 PRIMARY Encounter for HENRI NIELSEN V A 03:08 PM fitting and HCS adjustment of hearing aid Feb 13, 2022 SECONDARY Impacted cerumen, RU,WAYLON Quinn [place] 03:08 PM right ear HCS Feb 13, 2022 SECONDARY Sensorineural HENRI NIELSEN V A 03:08 PM hearing loss, HCS bilateral Feb 13, 2022 SECONDARY Tinnitus, HENRI NIELSEN [place] 03:08 PM bilateral HCS Social History: Smoking Status (Most current) and [...] 2021 11:15 AM VA-TOBACCO USER EVERY DAY [facility] Tobacco Use History This section includes a history of the smoking, or tobacco- related health factors, that were collected on or before the date of the Encounter. The data comes from the [place] facility where the Encounter took place. Date/Time Smoking Status/Tobacco Use Comment Td garcia Dec 06, 2021 11:15 AM VA-TOBACCO USE 30 YEARS OR MORE [facility] Dec 06, 2021 11:15 AM VA-TOBACCO USE [facility]VICE [facility] Dec 06, 2021 11:15 AM VA-TOBACCO USE OFFSET LABEL REWINDER NO [facility] Dec 06, 2021 11:15 AM VA-TOBACCO USE MED [facility] Dec 06, 2021 11:15 AM VA-TOBACCO USER EVERY DAY [facility] Nov 07, 2020 09:15 AM VA-TOBACCO FORMER USER MIN [facility] Nov 07, 2020 09:15 AM VA-TOBACCO QUIT 15 YRS OR MORE [facility] September 04, 2018 09:00 AM VA-TOBACCO USE 30 YEARS OR MORE [facility] September 04, 2018 09:00 AM VA-TOBACCO USE [facility]ICE [facility] September 04, 2018 09:00 AM VA-TOBACCO USE OFFSET LABEL REWINDER NO [facility] September 04, 2018 09:00 AM VA-TOBACCO USE MED NO [facility] September 04, 2018 09:00 AM VA-TOBACCO USE WI 30 MIN OF WAKEUP [facility] September 04, 2018 09:00 AM VA-TOBACCO USER EVERY DAY [facility] Sep 09, 2017 09:41 AM FORMER TOBACCO USE >1Y <7Y [facility] Oct 01, 2016 03:22 PM CURRENT TOBACCO USER [facility] September 02, 2015 03:18 PM FORMER TOBACCO USE <1Y MIN [facility] August 18, 2014 10:08 AM FORMER TOBACCO USE >1Y <7Y [facility] Oct 14, 2013 09:37 AM CURRENT TOBACCO USER [facility] Oct 07, 2012 10:00 AM CURRENT TOBACCO USER [facility] Oct 02, 2011 08:10 AM CURRENT TOBACCO USER [facility] Sep 30, 2009 11:25 AM CURRENT TOBACCO USER [facility] Encounter Notes: All associated encounter notes This section contains the clinical notes associated to the Encounter. Date/Time Encounter Note(s) Provider Source Feb 13, 2022 03:04 PM AUDIOLOGY NOTE: RUDY BABB [facility] LOCAL TITLE: AUDIOLOGY CLINIC NOTE STANDARD TITLE: AUDIOLOGY NOTE DATE OF NOTE: FEB 13, 2022@15:04 ENTRY DATE: FEB 13, 2022@15:04:40 AUTHOR: HENRI NIELSEN EXP COSIGNER: BOOGIE BABB URGENCY: STATUS: COMPLETED AUDIOLOGY CLINIC NOTE Has ADDENDA Diagnosis: Encounter for fitting and adjustment of hearing aid. Bilateral Sensorineural loss. Bilateral Tinnitus. The following hearing aid problem/s were present ed: Right hearing aid is . Left hearing aid is w eak. Reason for visit: Therapeutic hearing aid service Otoscopy: Both Ears: Cerumen impaction present. Cerumen was removed in office today by ENT nurse. Hearing Aids: 06/07/2021 Make: Phonak Model: Audeo P90-R SCARLET Serial Numbers R/L: [id number] / [id number] Event Planner/Slim Tube Size: R: 2S, L:2M Dome/Earmold: R: medium open domes, L: medium v ented Hearing Aid Issues: Right aid: Left aid: too weak Action: Both aids problem resolved i n clinic. Event Planner was changed on right hearing aid. There were no 2xM right receivers in stock, so p atient was switched to a 2xS potato grader at today's appointment. Domes, wax guar ds, and retention locks were replaced on both hearing aids. Microphones were cleared of debris. Listening check revealed hearing aids are again amplifying properly. Hearing aids were connected to software and repr ogrammed for new right's potato grader power. Feedback measures were rerun. Do me on left side was switched from medium open to medium v ented. Patient was okay with this change and reports hearing aids are working much better after today 's adjustments. Plan: - Patient will contact audiology with any hearin g aid or hearing loss related concerns. - Patient is in agreement with this plan. This treatment plan was discussed with the guillermo winters. The patient verbally demonstrated an understanding of the information provided and actively participated in the treatment plan. /ariadna/ Mady Franklin Ph.D. Interim Appraisal Analyst - Audiology Signed: 02/13/2022 15:45 for HENRI Coy, Audiology Geotechnical Laboratory Technician /ariadna/ Mady Franklin Ph.D. Interim Appraisal Analyst - Audiology Cosigned: 02/13/2022 15:45 02/13/2022 ADDENDUM STATUS: UNSIGNED You may not VIEW this UNSIGNED Addendum. Feb 13, 2022 02:30 PM AUDIOLOGY NOTE: WAYLON HARRSI [facility] LOCAL TITLE: AUDIOLOGY CLINIC NURSING NOTE STANDARD TITLE: AUDIOLOGY NOTE DATE OF NOTE: FEB 13, 2022@14:30 ENTRY DATE: FEB 13, 2022@15:10:18 AUTHOR: WAYLON HARRIS EXP COSIGNER: URGENCY: STATUS: COMPLETED Reason for visit: MAGANA repair and ear cleaning AD Effusion (drainage) in ear canals: No Recent Otalgia (pain) in ear canals? No Puritis in ear canals: No History of Ear Surgery: No History of Hearing Aid Use: Yes Currently wears hearing aids: Yes Cerumen Removed: Yes AD Patient tolerated procedure. Comments: soft impaction removed Nurse Patient Education: Barriers to Learning/Special Needs: Hearing Torres itations Participant(s) can repeat instructions to Refrain from using cotton swabs in ears Ear Care handout provided. PLAN: Follow up in: PRN (as needed) /es/ WAYLON HARRIS LPN LICENSED PRACTICAL NURSE Signed: 02/13/2022 15:32
== END 2022-03-17 11:13 | disposition home or self-care (01) ==
LOC: ED 11:12
PROVIDERS: Emergency Provider Emergency Medicine Emergency Medical Services; PCP Family Medicine
DX: R03.0 Elevated blood-pressure reading, without diagnosis of hypertension (principal)
CPT/HCPCS: 99283; 99284

== ENCOUNTER 2023-03-12 15:00 | Outpatient (RCR) | payer MEDICARE, SELFPAY ==
[2023-02-26 12:24] LABS: Basophils Absolute Auto 0.03 K/uL (0.00-0.30); Basophils Percent Auto 0.4 % (0.0-3.0); Eosinophils Absolute Auto 0.24 K/uL (0.00-0.50); Eosinophils Percent Auto 3.3 % (0.0-7.0); Hematocrit 49.7 % (37.0-53.0); Hemoglobin* 17.2 gm/dL (13.5-17.5); Immature Granulocytes Abs Auto 0.03 K/uL (0.00-0.30); Immature Granulocytes Pct Auto 0.4 %; Lymphocytes Percent Auto 19.8 % (20-44); Mean Corpuscular HGB Conc 35 gm/dL (32-36); Mean Corpuscular Hemoglobin 31 pg (26-34); Mean Corpuscular Volume 91 fL (80-100); Monocytes Percent Auto 7.6 % (0.0-11.0); Neutrophils Absolute Auto 4.95 K/uL (1.7-7.0); Neutrophils Percent Auto 68.5 % (42.0-72.0); Platelet Count* 243 K/uL (140-440); RDW Coefficient of Variation % 12.9 % (11.5-15.5); Red Blood Count 5.49 m/uL (4.30-5.90); White Blood Count* 7.23 K/uL (4.50-11.00)
[2023-02-26 12:26] LABS: Slide Review Reflex No
[2023-02-26 12:52] LABS: Chloride* 97 mmol/L (96-114); Sodium* 135 mmol/L (135-149)
[2023-02-26 12:54] LABS: Creatinine* 0.8 mg/dL (0.5-1.5); Estimated Glomerular Filt Rate 90 ml/min
[2023-02-26 12:55] LABS: Alanine Aminotransferase* 30 U/L (4-50); Alkaline Phosphatase* 68 U/L (40-150); Anion Gap 8 mEq/L (7-15); Aspartate Amino Transferase* 26 U/L (12-35); Bilirubin Total* 0.4 mg/dL (0.1-1.5); Blood Urea Nitrogen* 23 mg/dL (7-30); Calcium* 9.6 mg/dL (8.4-10.6); Carbon Dioxide* 30 mmol/L (20-32); Glucose* 143 mg/dL (60-115); Total Protein* 6.9 g/dL (6.0-8.3)
[2023-03-01 12:01] LABS: Albumin 3.58 g/dL (3.75-5.01); Alpha 1 Globulin 0.26 g/dL (0.19-0.46); Alpha 2 Globulin 0.75 g/dL (0.48-1.05); Immunofixation IFE Done; Immunoglobulin A 251 mg/dL (68-408); Immunoglobulin G 1223 mg/dL (768-1632); Immunoglobulin M 39 mg/dL (35-263); Kappa Qnt Free Light Chains 33.07 mg/L (3.30-19.40); Kappa/Lambda Light Chain Ratio 2.16 (0.26-1.65); Monoclonal Protein 0.59 g/dL; Total Protein, Serum 6.5 g/dL (6.3-8.2)
--- NOTE | 2023-06-13 14:22 | ONC.NURNOTE ---
took a phone call from Daniel and was asked to print his last MD note, was unable to print and tried to call Daniel back at [phone], was unable to reach Daniel or leave at message.
== END 2023-08-25 23:59 | disposition home or self-care (01) ==
LOC: CCIC 15:00
PROVIDERS: Internal Medicine Medical Oncology; PCP Student in an Organized Health Care Education/Training Program; Visit Provider Internal Medicine Hematology & Oncology
DX: D47.2 Monoclonal gammopathy (principal)
CPT/HCPCS: 36415; 80053; 82784; 83520; 84155; 84165; 85025; 86334; 99212; 99213; 99214

== ENCOUNTER 2023-05-29 09:00 | Outpatient (RCR) | payer MEDICARE, SELFPAY | END 2023-09-26 23:59 | disposition home or self-care (01) | PROVIDERS: PCP Student in an Organized Health Care Education/Training Program; Visit Provider Student in an Organized Health Care Education/Training Program | DX: M54.2 Cervicalgia (principal); G89.29 Other chronic pain; Z74.09 Other reduced mobility; R29.3 Abnormal posture; R29.898 Other symptoms and signs involving the musculoskeletal system; Z51.89 Encounter for other specified aftercare | CPT/HCPCS: 97110; 97140; 97162 ==

== ENCOUNTER 2023-06-01 15:13 | Emergency (ER) | payer MEDICARE, OTHER, SELFPAY ==
[2023-06-01] VITALS (52 sets, daily range): BP systolic 116–162; BP diastolic 51–98; PULSE 59–76; RESP 22; TEMP 36.9; O2SAT 87–96; BMI 33.5
--- NOTE | 2023-06-01 | XR_ITS ---
Patient: ESTHER ANDESRON Facility:?[facility] Patient ID:?[id number] Site Patient ID:?[id number]. Site :?1945 Study:?XRay-Chest Code Trauma - Portable-06/01/2023 3:20:02 PM Ordering Physician:Jamey Madison Final Report: INDICATION: Trauma TECHNIQUE: Single view chest. FINDINGS: Cardiac silhouette is enlarged. Right posterior 5th rib fracture. Left-sided old posterior rib fractures. Definite acute fracture is not seen. Left pleural-based opacity. This could be in part due to the overlying old rib fractures however pleural process not completely excluded. No pneumothorax. Left basilar atelectasis no effusion. IMPRESSION: 1. No acute pulmonary process. Acute right posterior 5th rib fracture old left- sided rib fractures. 2. Pleural-based opacity. Consider left CT imaging. Dictated by Edyta Granados MD @ 06/01/2023 3:25:29 PM Signed by:?Edyta Granados MD @06/01/2023 3:25:29 PM (Electronic Signature)
[2023-06-01] MEDS: fentaNYL 100 MCG/2 ML inj 50 MCG IVP ×2 (15:05→15:35)
[2023-06-01 15:14] LABS: Basophils Absolute Auto 0.02 K/uL (0.00-0.30); Basophils Percent Auto 0.2 % (0.0-3.0); Eosinophils Absolute Auto 0.26 K/uL (0.00-0.50); Eosinophils Percent Auto 2.7 % (0.0-7.0); Hematocrit 52.6 % (37.0-53.0); Hemoglobin* 18.4 gm/dL (13.5-17.5); Immature Granulocytes Abs Auto 0.07 K/uL (0.00-0.30); Immature Granulocytes Pct Auto 0.7 %; Lymphocytes Percent Auto 18.2 % (20-44); Mean Corpuscular HGB Conc 35 gm/dL (32-36); Mean Corpuscular Hemoglobin 31 pg (26-34); Mean Corpuscular Volume 89 fL (80-100); Monocytes Percent Auto 8.7 % (0.0-11.0); Neutrophils Absolute Auto 6.71 K/uL (1.7-7.0); Neutrophils Percent Auto 69.5 % (42.0-72.0); Platelet Count* 239 K/uL (140-440); RDW Coefficient of Variation % 12.9 % (11.5-15.5); Red Blood Count 5.89 m/uL (4.30-5.90); White Blood Count* 9.66 K/uL (4.50-11.00)
--- NOTE | 2023-06-01 15:18 | CT_ITS ---
Patient: ESTHER ANDERSON Facility:?[facility] Patient ID:?[id number] Site Patient ID:?[id number]. Site :?1945 Study:?CT-Spine Cervical code trauma - w/o-06/01/2023 3:41:33 PM Ordering Physician:Jamey Madison Final Report: Indication: Trauma Technique: Cervical spine CT Comparison: No comparison Findings: The bones appear demineralized. There is normal height and alignment of the vertebral bodies. Lateral masses of C1 align with the articular processes of C2. No acute fracture seen. The prevertebral soft tissues are within normal limits. Left thyroid nodule. Impression: No acute vertebral body fracture or traumatic malalignment Please note that all CT scans at this facility use dose modulation, iterative reconstruction, and/or weight-based dosing when appropriate to reduce radiation dose to as low as reasonably achievable. Dictated by Edyta Granados MD @ 06/01/2023 3:59:23 PM Signed by:?Edyta Granados MD @06/01/2023 3:59:23 PM (Electronic Signature)
--- NOTE | 2023-06-01 15:18 | CT_ITS ---
Patient: ESTHER ANDERSON Facility:?[facility] Patient ID:?[id number] Site Patient ID:?[id number]. Site :?1945 Study:?CT-Head code trauma - w/o-06/01/2023 3:39:49 PM Ordering Physician:?Tye Madison Final Report: Indication: Trauma Technique: Noncontrast head CT Comparison: No comparison Findings: Axial noncontrast images through the brain parenchyma demonstrates no acute intracranial hemorrhage or mass. No midline shift. No abnormal extra-axial air or fluid collections are seen. Generalized parenchymal volume loss. Periventricular hypo lucencies likely reflecting chronic small vessel ischemic change. Skull and scalp appear unremarkable. Impression: No acute intracranial hemorrhage or mass. Please note that all CT scans at this facility use dose modulation, iterative reconstruction, and/or weight-based dosing when appropriate to reduce radiation dose to as low as reasonably achievable. Dictated by Edyta Granados MD @ 06/01/2023 3:46:16 PM Signed by:?Edyta Granados MD @06/01/2023 3:46:16 PM (Electronic Signature)
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
[2023-06-01 15:21] LABS: Slide Review Reflex No
[2023-06-01 15:27] LABS: Albumin* 4.3 g/dL (3.3-5.0); Chloride* 96 mmol/L (96-114); Sodium* 132 mmol/L (135-149)
[2023-06-01 15:29] LABS: Creatinine* 0.9 mg/dL (0.5-1.5); Estimated Glomerular Filt Rate 87 ml/min
[2023-06-01 15:30] LABS: Alanine Aminotransferase* 105 U/L (4-50); Alkaline Phosphatase* 74 U/L (40-150); Anion Gap 8 mEq/L (7-15); Aspartate Amino Transferase* 102 U/L (12-35); Bilirubin Total* 0.5 mg/dL (0.1-1.5); Blood Urea Nitrogen* 29 mg/dL (7-30); Calcium* 10.3 mg/dL (8.4-10.6); Carbon Dioxide* 28 mmol/L (20-32); Glucose* 143 mg/dL (60-115); Potassium* 3.5 mmol/L (3.6-5.1); Total Protein* 7.9 g/dL (6.0-8.3)
[2023-06-01] MEDS: ONDANSETRON 2 MG/ML inj 4 MG IVP (15:35)
[2023-06-01 15:39] LABS: Prothrombin Time 14.9 Seconds
[2023-06-01] MEDS: HYDROmorphone 0.5 mg/0.5 ml inj IVP ×2 (16:30→18:37)
[2023-06-01 17:12] LABS: Ethanol* 0.01 % (0.01-0.03)
--- NOTE | 2023-06-01 19:47 | ED.NURSE ---
Report called Leidy CHAPPELL RN.
== END 2023-06-01 19:48 | disposition short-term general hospital (02) ==
PROVIDERS: Emergency Provider Emergency Medicine; PCP Student in an Organized Health Care Education/Training Program
DX: S22.42XA Multiple fractures of ribs, left side, initial encounter for closed fracture (principal); V43.52XA Car driver injured in collision with other type car in traffic accident, initial encounter; Y92.411 Interstate highway as the place of occurrence of the external cause; R09.02 Hypoxemia; N32.89 Other specified disorders of bladder
CPT/HCPCS: 36415; 70450; 71045; 71260; 72125; 74177; 80053; 82077; 84484; 85025; 85610; 93005; 94761; 96374; 96375; 99285; 99291; G0390; J1170; J2405; J3010; Q9967

== ENCOUNTER 2023-06-01 19:30 | Outpatient (CLI) | payer OTHER, MEDICARE, SELFPAY | END 2023-06-01 19:31 | disposition home or self-care (01) | LOC: AMB 06-14 16:08 | PROVIDERS: PCP Student in an Organized Health Care Education/Training Program; Visit Provider Emergency Medicine | DX: S22.49XS Multiple fractures of ribs, unspecified side, sequela (principal) | CPT/HCPCS: A0425; A0433 ==

== ENCOUNTER 2024-01-08 14:45 | Outpatient (RCR) | payer MEDICARE, SELFPAY | END 2024-05-04 15:21 | disposition home or self-care (01) | PROVIDERS: PCP Student in an Organized Health Care Education/Training Program; Visit Provider Student in an Organized Health Care Education/Training Program | DX: M54.2 Cervicalgia (principal); G89.29 Other chronic pain; Z74.09 Other reduced mobility; R53.1 Weakness; R29.3 Abnormal posture; Z51.89 Encounter for other specified aftercare | CPT/HCPCS: 97110; 97140; 97162; 97530 ==

== ENCOUNTER 2024-03-25 15:19 | Emergency (ER) | payer MEDICARE, SELFPAY ==
--- OUTSIDE RECORDS SUMMARY | 2024-03-25 15:22 | XMS_ITS | Encounter Summary ---
Author Name [facility] [place] Organization [facility] [place] Address [address] [place] [address] Care Team Providers Care Real Estate Director Name Role Phone SANDY ROBLERO Primary Care Provider Unavailab le Insurance Providers: All historical and current Section Date Range: From patient's date of to the date document was created. This section includes the names of all active insurance providers for the patient. Insurance Provider Type of Coverage Plan Name Start of Policy Coverage End of Policy Coverage Group Number Member ID Insurance Provider's Telephone Number Policy Agosto's Name Patient's Relationship to Policy Agosto MEDICARE (WNR) MEDICARE (M) PART B Dec 07, 1989 PART B [id number] JUSTIN,LINDSAY PALACIOS PATIENT MEDICARE (WNR) MEDICARE (M) PART B Dec 07, 1989 PART B [id number] JUSTIN,LINDSAY PHILIP PATIENT MEDICARE (WNR) MEDICARE (M) PART A Apr 08, 1989 PART A [id number] JUSTIN,LINDSAY PHILIP PATIENT MEDICARE (WNR) MEDICARE (M) PART A Apr 08, 1989 PART A [id number] JUSTIN,LINDSAY LUY PATIENT Selected Encounter This section includes the information on record at [place] for the Encounter. Date/Time Encounter Type Encounter Description Reason Provider Source May 09, 2023 09:30 AM OFF/OP CNSLTJ NEW/EST MOD 40 PODIATRY ICD-10-CM L60.0 Ingrowing nail ANTONIA PAZ Noam Encounter Template Text not used by [place] Assessments - Encounter Diagnoses This section includes the primary and secondary diagnoses documented for the Encounter. Date/Time Primary/Secondary Diagnosis Diagnosis Name Provider Source May 09, 2023 10:23 AM PRIMARY Ingrowing nail ANTONIA PAZ [facility] May 09, 2023 10:23 AM SECONDARY Hereditary and idiopathic neuropathy, unspecified [facility] May 09, 2023 10:23 AM SECONDARY Radiculopathy, lumbar region ANTONIA PAZ ANKUR [facility] May 09, 2023 10:23 AM SECONDARY Tinea unguium PAZ,[facility] Plan of Treatment: Future Appointments (+ 6 months) and Future Tests (+/- 45 days) The Plan of Treatment section includes future care activities for the patient from all [place] [facility] This section includes future appointments and future orders which are active, pending or scheduled. Future Appointments This section includes appointments that were scheduled to occur 6 months from the date of the Encounter, up to a maximum of 20 appointments. The data comes from all [place] treatment facilities. Appointment Date/Time Appointment Type Appointme nt Facility Name Jun 03, 2023 08:42 PM AMBULATORY - NONE [facility] Social History: Smoking Status (Most current) and Tobacco Use (All prior to encounter date) This section includes the most current, and the historical, smoking and tobacco- related health factors from the [place] facility where the Encounter took place. Current Smoking Status This section includes the most current smoking, or tobacco-related health factor, from the [place] facility where the Encounter took place. Date/Time Current Smoking Status Comment Td ity Jan 28, 2023 09:15 AM VA-TOBACCO USE [place] 30 MIN OF WAKE UP [facility] Tobacco Use History This section includes a history of the smoking, or tobacco-related health factors, that were collected on or before the date of the Encounter. The data comes from the [place] facility where the Encounter took place. Date/Time Smoking Status/Tobacco Use Comment F acility Jan 28, 2023 09:15 AM VA-TOBACCO USE ADVICE [facility] Jan 28, 2023 09:15 AM VA-TOBACCO USE VOUCHER EXAMINER NO [facility] Jan 28, 2023 09:15 AM VA-TOBACCO USE MED NO [facility] Jan 28, 2023 09:15 AM VA-TOBACCO USE WI 30 MIN OF WAKE UP [facility] Jan 28, 2023 09:15 AM VA-TOBACCO USER EVERY DAY [facility] Dec 06, 2021 11:15 AM VA-TOBACCO DOESNT USE WI 30 MIN WAKEUP [facility] Dec 06, 2021 11:15 AM VA-TOBACCO USE 30 YEARS OR MORE [facility] Dec 06, 2021 11:15 AM VA-TOBACCO USE ADVICE [facility] Dec 06, 2021 11:15 AM VA-TOBACCO USE VOUCHER EXAMINER NO [facility] Dec 06, 2021 11:15 AM VA-TOBACCO USE MED NO [facility] Dec 06, 2021 11:15 AM VA-TOBACCO USER EVERY DAY [facility] Nov 07, 2020 09:15 AM VA-TOBACCO FORMER USER [facility] Nov 07, 2020 09:15 AM VA-TOBACCO QUIT 15 YRS OR MORE [facility] September 04, 2018 09:00 AM VA-TOBACCO USE 30 YEARS OR MORE [facility] September 04, 2018 09:00 AM VA-TOBACCO USE ADVICE [facility] September 04, 2018 09:00 AM VA-TOBACCO USE VOUCHER EXAMINER NO [facility] September 04, 2018 09:00 AM VA-TOBACCO USE MED NO [facility] September 04, 2018 09:00 AM VA-TOBACCO USE WI 30 MIN OF WAKE UP [facility] September 04, 2018 09:00 AM VA-TOBACCO USER EVERY DAY [facility] Sep 09, 2017 09:41 AM FORMER TOBACCO USE >1Y <7Y [facility] Oct 01, 2016 03:22 PM CURRENT TOBACCO USER [facility] September 02, 2015 03:18 PM FORMER TOBACCO USE <1Y [facility] August 18, 2014 10:08 AM FORMER TOBACCO USE >1Y <7Y [facility] Oct 14, 2013 09:37 AM CURRENT TOBACCO USER [facility] Oct 07, 2012 10:00 AM CURRENT TOBACCO USER [facility] Oct 02, 2011 08:10 AM CURRENT TOBACCO USER [facility] Sep 30, 2009 11:25 AM CURRENT TOBACCO USER [facility] Encounter Notes: All associated encounter notes This section contains the clinical notes associated to the Encounter. Date/Time Encounter Note(s) Provider Source May 09, 2023 09:57 AM PODIATRY CONSULT: LOCAL TITLE: PODIATRY CONSULT STANDARD TITLE: PODIATRY CONSULT DATE OF NOTE: MAY 09, 2023@09:57 ENTRY DATE: MAY 09, 2023@09:58:02 AUTHOR: ANTONIA PAZ COSIGNER: URGENCY: STATUS: COMPLETED Chief Complaint: This 77 year old MALE presents to podiatry for diabetic foot care. He is current smoker, pre-diabetic and has history of neuropathy due to multiple back surgeries. Struggles doing his nails. Has previously been seen in the community for care as [facility]. 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 Physical Exam: Cardiovascular: DP pulse is 2/4 palpable left and 2/4 palpable right. PT pulse is 2/4 palpable left and 2/4 palpable right. Capillary refill is <3 sec left and right. Edema 1+ bilateral foot. varicosities present legs Temperature cool proximally to distally bilateral Hemosiderin deposits noted bilateral Dermatologic: The patient's nails appear incurvated, thickened, elongated, dystrophic, discolored with subungual debris 1-5 right, 1-5 left nails. Digital hair growth is absent left and right foot. Skin is of thinned texture and decreased turgor. Neurological: Vibratory (128-Hz tuning fork) sensation is diminished to right and left foot. Monofilament (10-g) sensation is 0/10 to right and to left. Sharp/dull is diminished to right and to left. 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 to be referred back to community for foot checks. He meets drive time. deferred shoes and inserts for neuropathy. /ariadna/ ANTONIA Paz DPM STAFF EDGE DRUMMER Signed: 05/09/2023 10:23 ANTONIA PAZ [facility]
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
--- OUTSIDE RECORDS SUMMARY | 2024-03-25 15:22 | XMS_ITS | Continuity of Care Document ---
Author Name [facility] Organization [facility] Care Team Providers Care Knockdown Man Name Role Phone [facility] Unavailable Unavailable Problems Combined list of problems from Department of Defense and Veterans Affairs facilities. It does not include entries that were removed or entered in error. Problem Status Onset Date Problem Type Date of Resolution Comments Source Exposure to potentially hazardous substance ([facility] [id number]) Active 06/13/19 24 Condition Jun 13, 2023 Entered By: TADEO HOOKS Comment: [facility] MICHELE Documentation Initiative [facility] Chronic obstructive lung disease (SNOMED CT 84746477) Active Condition [facility] Chronic venous insufficiency Active Condition [facility] Co-Managed Care Active Condition Dec 06, 2021 Entered By: SANDY ROBLERO Comment: PCP: Dr. Alonso ([facility])Dec 06, 2021 Entered By: SANDY ROBLERO Comment: Heme/onc: María Elena [facility] Essential hypertension Active Condition [facility] Ingrowing toenail (SNOMED CT 992816050) Active Condition [facility] Lymphedema * (ICD-9-CM 457.1) Active Condition [facility] Monoclonal IgG present Active Condition Oct 22, 2019 Entered By: SANDY ROBLERO Comment: Follows at [facility] Obesity Active Condition [facility] Obstructive sleep apnea Active Condition Nov 12, 2023 Entered By: SHAISTA BENAVIDES Comment: DS1 apap 6-10 [facility] Onychauxis (SNOMED CT 07099930) Active Condition [facility] Polycythemia Active Condition Oct 22, 2019 Entered By: SANDY ROBLERO Comment: Follows at [facility] [place], [place] 2021 Entered By: SANDY ROBLERO Comment: JAK2 testing negative. ?smoking related. BM Bx done 2019 (María Elena) [facility] Prediabetes Active Condition [facility] Tinnitus * (ICD-9-CM 388.30) Active Condition [facility] Tobacco use (SNOMED CT 647198782) Active Condition [facility] Diagnosis: ICD-10-CM G47.30 Sleep apnea, unspecified Active Diagnosis [facility] Diagnosis: ICD-10-CM L60.0 In[address] Diagnosis [facility] Diagnosis: ICD-10-CM Z72.0 Tobacco use Active Diagnosis [facility] Medications Combined list of outpatient medications from [facility] and [facility] facilities.Medications provided include 1) outpatient medications from the last 15 months, and 2) patient-reported medications. Medication Details Route Status Patient Instructions Prescription Expires Prescription Number Last Dispense Date Ordering Provider Order Date Order Qty Source ATENOLOL 50MG TAB TAKE ONE TABLET BY MOUTH DAILY ORAL ACTIVE Aniyah KUHN 2011 [facility] CHLORTHALID ONE 25MG TAB TAKE ONE TABLET BY MOUTH EVERY DAY ORAL ACTIVE GALA ROBLERO 2021 [facility] PRIMIDONE 50MG TAB TAKE ONE TABLET BY MOUTH TWICE A DAY ORAL ACTIVE Real MERIRTT 2016 [facility] Allergies, Adverse Reactions, Alerts Combined list of allergies from [facility] and [facility] facilities. It does not include entries that were removed or entered in error. Substance Category Reaction Severity Reaction type Status Date Reported Comments Source ASPIRIN Propensity to adverse reactions to drug (finding) Gastrointes tinal hemorrhage active 0 [facility] LORATADINE Propensity to adverse reactions to drug (finding) Itching active 4 [facility] Immunizations Combined list of available immunizations from the [facility] and [facility] facilities. Immunization Series Date Given Administered By Site Reaction Lot Number CVX Code Drug Front End Java Developer Status Comments Source COVID-19 (MODERNA), MRNA, LNP-S, PF, 50 MCG/0.5 ML (AGES 12+ YEARS) 2023 312 complet ed [facility] INFLUENZA, HIGH-DOSE, TRIVALENT, PF 2023 135 complet ed [facility] COVID-19 (MODERNA), MRNA, LNP-S, PF, 50 MCG/0.5 ML (AGES 12+ YEARS) 2022 312 complet ed [facility] INFLUENZA, HIGH-DOSE, QUADRIVALENT 2022 197 complet ed [facility] RSV, RECOMBINANT, PROTEIN SUBUNIT RSVPREF, ADJUVANT RECONSTITUTED , 0.5 ML, PF 2022 303 complet ed [facility] INFLUENZA VACCINE, QUADRIVALENT, ADJUVANTED 2021 205 complet ed [facility] TDAP 2021 115 complet ed per [facility] COVID-19 (PFIZER), MRNA, LNP-S, PF, 30 MCG/0.3 ML DOSE, DONNA-SUCROSE (AGES 12+ YEARS) 4 2021 217 complet ed [facility] COVID-19 (PFIZER), MRNA, LNP-S, PF, 30 MCG/0.3 ML DOSE 3 2020 208 complet ed [facility] INFLUENZA, HIGH-DOSE, QUADRIVALENT 2020 197 complet ed [facility] COVID-19 (Netccm), MRNA, LNP-S, PF, 30 MCG/0.3 ML DOSE 2020 208 complet ed [facility] COVID-19 (Netccm), MRNA, LNP-S, PF, 30 MCG/0.3 ML DOSE 2020 208 complet ed [facility] INFLUENZA, HIGH-DOSE, QUADRIVALENT 2019 197 complet ed [facility] INFLUENZA, TRIVALENT, ADJUVANTED 2018 168 complet ed [facility] PNEUMOCOCCAL POLYSACCHARID E PPV23 2018 33 complet ed [facility] ZOSTER RECOMBINANT 2 2017 187 complet ed [facility] ZOSTER RECOMBINANT 1 2016 187 complet ed [facility] INFLUENZA, HIGH DOSE SEASONAL 2016 135 complet ed [facility] INFLUENZA, HIGH DOSE SEASONAL 2016 135 complet ed [facility] INFLUENZA, HIGH DOSE SEASONAL 2015 135 complet ed [facility] PNEUMOCOCCAL CONJUGATE PCV 13 2015 133 complet ed [employer] [id number], 09/22. [facility] INFLUENZA, HIGH DOSE SEASONAL 2014 135 complet ed [facility] INFLUENZA, HIGH DOSE SEASONAL 2014 135 complet ed [facility] PNEUMOCOCCAL CONJUGATE PCV 13 2014 133 complet ed [facility] INFLUENZA, HIGH DOSE SEASONAL 2013 135 complet ed [facility] INFLUENZA, SEASONAL, INJECTABLE 2012 141 complet ed [facility] INFLUENZA, UNSPECIFIED FORMULATION 2012 88 complet ed [facility] ZOSTER LIVE 2012 121 complet ed [facility] INFLUENZA, SEASONAL, INJECTABLE 2012 141 complet ed [facility] ZOSTER LIVE 2011 121 complet ed [employer] [id number],06/11/2012 [facility] TDAP 2011 115 complet ed [facility] INFLUENZA, SEASONAL, INJECTABLE, PRESERVATIVE FREE 2010 140 complet ed [facility] INFLUENZA, UNSPECIFIED FORMULATION 2010 88 complet ed [facility] INFLUENZA, SEASONAL, INJECTABLE 2008 141 complet ed [facility] PNEUMOCOCCAL POLYSACCHARID E PPV23 2008 33 complet ed [facility] PNEUMOCOCCAL, UNSPECIFIED FORMULATION 2008 109 complet ed PPV-23 [facility] PNEUMOCOCCAL POLYSACCHARID E PPV23 2004 33 complet ed [facility] TD (ADULT), 2 LF TETANUS TOXOID, PRESERVATIVE FREE, ADSORBED 2002 09 complet ed [facility] Encounters Combined list of: 1) Encounters from Department of [facility] Affairs facilities going back up to thelast 18 months. 2) Encounters from the Department of Defense facilities going back up to 280 months. Location Location Details Encounter Type Encounter Number Reason For Visit Attending Provider ADM Date DC Date Status Disposition Source [facility] Outpatient Encounter [id number] 10/05 [facility] Outpatient Encounter [id number] 01/08 [facility] OFFICE O/P EST LOW 20-29 MIN [id number] Diagnos is: ICD-10- CM Z72.0 Tobacco use<br/ > KYLAH ROBLERO RTSON E 01/28 [facility] [place] [facility] Outpatient Encounter [id number] 01/30 [facility] [place] [facility] OFF/OP CNSLTJ NEW/EST MOD 40 [id number] Diagnos is: ICD-10- CM L60.0 Ingrowi ng nail
KALE HEDRICK 05/09 [place] [facility] [place] [facility] Outpatient Encounter [id number] JAKE WAGNER 06/03 [facility] [place] [facility] Outpatient Encounter [id number] Abran GIBSON 06/05 [facility] PT EDUCATION NOC INDIVID [id number] Diagnos is: ICD-10- CM G47.30 Sleep apnea, unspeci fied
LEILA BENAVIDES 11/11 [facility] [place] [facility] Outpatient Encounter [id number] 01/26 [facility] [place] [facility] Outpatient Encounter [id number] 02/10 [facility] [place] [facility] Outpatient Encounter [id number] 02/12 [facility] [place] [facility] Outpatient Encounter [id number] 02/24 [facility] [place] [facility] Outpatient Encounter [id number] 03/06 [place] [facility] [place] [facility] Outpatient Encounter [id number] 03/20 [facility] Social History Combined list of available smoking, tobacco, and other social history from Department of Defense and [facility] Affairs facilities. Social History Type Response Date Comment Sourc e Tobacco smoking status NHIS [place]-TOBACCO USER EVERY DAY 01/28/2023 [facility] History of tobacco use [place]-TOBACCO USE [place] 30 MIN OF WAKEUP 01/28/2023 [facility] History of tobacco use VA-TOBACCO DOESNT USE WI 30 MIN WAKEUP 12/06/2021 [facility] History of tobacco use VA-TOBACCO FORMER USER 11/07/2020 [facility] History of tobacco use VA-TOBACCO USE MED NO 09/04/2018 [facility] History of tobacco use FORMER TOBACCO US E >1Y <7Y 09/09/2017 [facility] History of tobacco use CURRENT TOBACCO USER 10/01/2016 [facility] History of tobacco use FORMER TOBACCO USE <1Y 09/02/2015 [facility] History of tobacco use FORMER TOBACCO US E >1Y <7Y 08/18/2014 [facility] History of tobacco use CURRENT TOBACCO USER 10/14/2013 [facility] History of tobacco use CURRENT TOBACCO USER 10/07/2012 [facility] History of tobacco use CURRENT TOBACCO USER 10/02/2011 [facility] History of tobacco use CURRENT TOBACCO USER 09/30/2009 [facility]
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
--- OUTSIDE RECORDS SUMMARY | 2024-03-25 15:23 | XMS_ITS | Encounter Summary ---
Author Name [facility] of Vetera Affairs ([place]) Organization [facility] [place] Address [address] [place] [address] Care Team Providers Care Lookback Coordinator Name Role Phone SANDY ROBLERO Primary Care [...] PART B Dec 07, 1989 PART B [id number] [phone] LINDSAY ANDERSON PATIENT MEDICARE (WNR) MEDICARE (M) PART B Dec 07, 1989 PART B [id number] [phone] LINDSAY ANDERSON PATIENT MEDICARE (WNR) MEDICARE (M) PART A Apr 08, 1989 PART A [id number] [phone] LINDSAY ANDERSON PATIENT MEDICARE (WNR) MEDICARE (M) PART A Apr 08, 1989 PART A [id number] LINDSAY ANDERSON PATIENT Selected Encounter This section includes the information on record at MD for the Encounter. Date/Time Encounter Type Encounter Description Reason Provider Source Nov 12, 2023 08:00 AM PT EDUCATION NOC INDIVID SLEEP MEDICINE ICD-10-CM G47.30 Sleep apnea, unspecified DILLESHAISTA S IHE Encounter Template Text not used by MD Assessments - Encounter Diagnoses This section includes the primary and secondary diagnoses documented for the Encounter. Date/Time Primary/Secondary Diagnosis Diagnosis Name Provider Source Nov 12, 2023 11:23 AM PRIMARY Sleep apnea, unspecified KENNEDYSHAISTA Quinn [facility] Social History: Smoking Status (Most current) and Tobacco Use (All prior to encounter date) This section includes the most current, and the historical, smoking and tobacco- related health factors from the MD facility where the Encounter took place. Current Smoking Status This section includes the most current smoking, or tobacco-related health factor, from the MD facility where the Encounter took place. Date/Time Current Smoking Status Comment Td ity Jan 28, 2023 09:15 AM VA-TOBACCO USE WI 30 MIN OF WAKE UP [facility] Tobacco Use History This section includes a history of the smoking, or tobacco-related health factors, that were collected on or before the date of the Encounter. The data comes from the MD facility where the Encounter took place. Date/Time Smoking Status/Tobacco Use Comment F acility Jan 28, 2023 09:15 AM VA-TOBACCO USE ADVICE [facility] Jan 28, 2023 09:15 AM VA-TOBACCO USE COMMERCIAL LINES ASSISTANT NO [facility] Jan 28, 2023 09:15 AM VA-TOBACCO USE MED NO [facility] Jan 28, 2023 09:15 AM VA-TOBACCO USE WI 30 MIN OF WAKE UP [facility] Jan 28, 2023 09:15 AM VA-TOBACCO USER EVERY DAY [facility] Dec 06, 2021 11:15 AM VA-TOBACCO DOESNT USE WI 30 MIN WAKEUP [facility] Dec 06, 2021 11:15 AM VA-TOBACCO USE 30 YEARS OR MORE [facility] Dec 06, 2021 11:15 AM VA-TOBACCO USE ADVICE [facility] Dec 06, 2021 11:15 AM VA-TOBACCO USE COMMERCIAL LINES ASSISTANT NO [facility] Dec 06, 2021 11:15 AM VA-TOBACCO USE MED NO [facility] Dec 06, 2021 11:15 AM VA-TOBACCO USER EVERY DAY [facility] Nov 07, 2020 09:15 AM VA-TOBACCO FORMER USER [facility] Nov 07, 2020 09:15 AM VA-TOBACCO QUIT 15 YRS OR MORE [facility] September 04, 2018 09:00 AM VA-TOBACCO USE 30 YEARS OR MORE [facility] September 04, 2018 09:00 AM VA-TOBACCO USE ADVICE [facility] September 04, 2018 09:00 AM VA-TOBACCO USE COMMERCIAL LINES ASSISTANT NO [facility] September 04, 2018 09:00 AM VA-TOBACCO USE MED NO [facility] September 04, 2018 09:00 AM VA-TOBACCO USE WI 30 MIN OF WAKE UP [facility] September 04, 2018 09:00 AM MD-TOBACCO USER EVERY DAY [facility] Sep 09, 2017 09:41 AM FORMER TOBACCO USE >1Y <7Y [facility] Oct 01, 2016 03:22 PM CURRENT TOBACCO USER [facility] September 02, 2015 03:18 PM FORMER TOBACCO USE <1Y [facility] August 18, 2014 10:08 AM FORMER TOBACCO USE >1Y <7Y [facility] Oct 14, 2013 09:37 AM CURRENT TOBACCO USER [facility] Oct 07, 2012 10:00 AM CURRENT TOBACCO USER [facility] Oct 02, 2011 08:10 AM CURRENT TOBACCO USER [facility] Sep 30, 2009 11:25 AM CURRENT TOBACCO USER [facility] Encounter Notes: All associated encounter notes This section contains the clinical notes associated to the Encounter. Date/Time Encounter Note(s) Provider Source Nov 12, 2023 08:00 AM SLEEP MEDICINE NOT E: LOCAL TITLE: SLEEP MEDICINE NOTE STANDARD TITLE: SLEEP MEDICINE NOTE DATE OF NOTE: NOV 12, 2023@08:00 ENTRY DATE: NOV 12, 2023@08:00:33 AUTHOR: SHAISTA BENAVIDES EXP COSIGNER: URGENCY: STATUS: COMPLETED [id number] [place] [facility] appointment today for this reason: MACHINE INTAKE [id number] Device complaint: pressure erratic Device was tested and clinician determined the following: erratic pressure RMA was filed: YES Device was replaced: yes SN: [id number] Programmed APAP 6-10 contacted and notified that I am ordering him a modem for device and mailing a replacement machine to him. RX changed to 6-10 with ramp 4. Esther Anderson DreamStation Auto CPAP [id number] ([id number]) [id number] 10/13/2023 - 11/11/2023 Compliance Summary Initial Compliance Status Compliant % Days with Usage >= 4 Hours % Days Used Average Usage (Days Used) Hours of Usage 93.3% (28 of 30 days) 100.0% (30 of 30 days) 8 hrs. 46 mins. 10 secs. Device Settings Device Last Modified Max Pressure AHI 0.8 Clear Airway Apnea Index DreamStation Auto CPAP 11/11/2023 20 cmH2O Obst. Airway Apnea Index Mode Min Pressure AutoCPAP - A-Flex 4 cmH2O Hypopnea Index RERA Index Vibratory Snore Index Flow Limitation Index 0 %of Night In Periodic Breathing 0.1 Average CPAP 0 Average Unintended Leak 0.8 Median Unintended Leak 0.4 Ave. Large Leak/Day 3.5 Ave % Large Leak 0.3 Ave % Mask Fit 5.3 cmH2O 90% CPAP 6.5 cmH2O Printed By: teofilo 20.3 l/min 11/12/2023 16 l/min Care Ballet Soloist Version: 1.52.1 01:19:58 15.2 84.8 /ariadna/ SHAISTA BENAVIDES registered respiratory therapist Signed: 11/12/2023 11:24 SHAISTA BENAVIDES [facility]
--- OUTSIDE RECORDS SUMMARY | 2024-03-25 15:23 | XMS_ITS | Encounter Summary ---
Author Name [facility] [place] Organization [facility] [place] Address [address] [place] [address] Care Team Providers Care Gun Fertilizer Name Role Phone SANDY ROBLERO Primary Care [...] PART B Dec 07[birth year] 1989 PART B [id number] [phone] LINDSAY ANDERSON PATIENT MEDICARE (WNR) MEDICARE (M) PART B Dec 07, 1989 PART B [id number] [facility] [phone] JUSTIN,LINDSAY PALACIOS PATIENT MEDICARE (WNR) MEDICARE (M) PART A Apr 08, 1989 PART A [id number] [phone] JUSTIN,LINDSAY LUY PATIENT MEDICARE (WNR) MEDICARE (M) PART A Apr 08, 1989 PART A [id number] LINDSAY ANDERSON PATIENT Selected Encounter This section includes the information on record at [place] for the Encounter. Date/Time Encounter Type Encounter Description Reason Pro vider Source Jan 27, 2024 09:58 AM Outpatient Encounter PRIMARY CARE/MEDICINE IHE Encounter Template Text not used by VA Social History: Smoking Status (Most current) and Tobacco Use (All prior to encounter date) This section includes the most current, and the historical, smoking and tobacco- related health factors from the [place] facility where the Encounter took place. Current Smoking Status This section includes the most current smoking, or tobacco-related health factor, from the [place] facility where the Encounter took place. Date/Time Current Smoking Status Comment Td vargasy Jan 28, 2023 09:15 AM [place]-TOBACCO [place] [address] [facility] Tobacco Use History This section includes a history of the smoking, or tobacco-related health factors, that were collected on or before the date of the Encounter. The data comes from the [place] facility where the Encounter took place. Date/Time Smoking Status/Tobacco Use Comment Rasheeda accain Jan 28, 2023 09:15 AM VA-TOBACCO USE ADVICE [facility] Jan 28, 2023 09:15 AM VA-TOBACCO USE SECURITY VEHICLE PATROL OFFICER NO [facility] Jan 28, 2023 09:15 AM VA-TOBACCO USE MED NO [facility] Jan 28, 2023 09:15 AM VA-TOBACCO USE WI 30 MIN [address] UP [facility] Jan 28, 2023 09:15 AM VA-TOBACCO USER EVERY DAY [facility] Dec 06, 2021 11:15 AM VA-TOBACCO DOESNT USE WI [address] [facility] Dec 06, 2021 11:15 AM VA-TOBACCO USE [address] [facility] Dec 06, 2021 11:15 AM VA-TOBACCO USE ADVICE [facility] Dec 06, 2021 11:15 AM VA-TOBACCO USE SECURITY VEHICLE PATROL OFFICER NO [facility] Dec 06, 2021 11:15 AM VA-TOBACCO USE MED NO [facility] Dec 06, 2021 11:15 AM VA-TOBACCO USER EVERY DAY [facility] Nov 07, 2020 09:15 AM VA-TOBACCO FORMER USER [facility] Nov 07, 2020 09:15 AM VA-TOBACCO QUIT [address] [facility] September 04, 2018 09:00 AM VA-TOBACCO USE [address] [facility] September 04, 2018 09:00 AM VA-TOBACCO USE ADVICE [facility] September 04, 2018 09:00 AM VA-TOBACCO USE SECURITY VEHICLE PATROL OFFICER NO [facility] September 04, 2018 09:00 AM VA-TOBACCO USE MED NO [facility] September 04, 2018 09:00 AM VA-TOBACCO USE WI [address] UP [facility] September 04, 2018 09:00 AM VA-TOBACCO USER EVERY DAY [facility] Sep 09, 2017 09:41 AM FORMER TOBACCO USE >1Y <7Y [facility] Oct 01, 2016 03:22 PM CURRENT TOBACCO USER [facility] September 02, 2015 03:18 PM FORMER TOBACCO USE <1Y [facility] August 18, 2014 10:08 AM FORMER TOBACCO USE >1Y <7Y [facility] Oct 14, 2013 09:37 AM CURRENT TOBACCO USER [facility] Oct 07, 2012 10:00 AM CURRENT TOBACCO USER [facility] Oct 02, 2011 08:10 AM CURRENT TOBACCO USER [facility] Sep 30, 2009 11:25 AM CURRENT TOBACCO USER [facility] Encounter Notes: All associated encounter notes This section contains the clinical notes associated to the Encounter. Date/Time Encounter Note(s) Provider Source Jan 27, 2024 09:58 AM REPORT OF CONTACT: LOCAL TITLE: APPOINTMENT SCHEDULING NOTE STANDARD TITLE: REPORT OF CONTACT DATE OF NOTE: JAN 27, 2024@09:58 ENTRY DATE: JAN 27, 2024@09:59:04 AUTHOR: SUDHA MARTÍNEZ EXP COSIGNER: URGENCY: STATUS: COMPLETED Attempted to schedule Recall/Patient Center Scheduling (PtCSch) Contact attempt made to 1st attempt Letter - Sent letter by regular [place] mail to address on file: [address] [id number], [place] [address] 2nd attempt Text message - sent 01/13/2024 Disposition order request after Jan If calls back, schedule appt for: ROXANN PACT TEAL WH 4E RTC +12M W/ CO-MANAGED CARE FED:01/28/23 /ariadna/ SUDHA MARTÍNEZ MSA APPLIED BIOLOGY PROFESSOR Signed: 01/27/2024 09:[address] [facility]
--- OUTSIDE RECORDS SUMMARY | 2024-03-25 15:23 | XMS_ITS | Encounter Summary ---
Author Name [facility] [place] Organization [facility] [place] [facility] [place] Address [address] [place] [address] Care Team Providers Care Test Boring Crew Chief Name Role Phone SANDY ROBLERO Primary Care [...] PART B Dec [birth year] 1989 PART B [id number] [phone] LINDSAY ANDERSON PATIENT MEDICARE (WNR) MEDICARE (M) PART B Dec 07, 1989 PART B [id number] [facility] [phone] JUSTIN,LINDSAY PALACIOS PATIENT MEDICARE (WNR) MEDICARE (M) PART A Apr 08, 1989 PART A [id number] [phone] LINDSAY ANDERSON PATIENT MEDICARE (WNR) MEDICARE (M) PART A Apr 08, 1989 PART A [id number] [facility] [phone] LINDSAY ANDERSON PATIENT Selected Encounter This section includes the information on record at [place] for the Encounter. Date/Time Encounter Type Encounter Description Reason Pro vider Source Feb 13, 2024 12:54 PM Outpatient Encounter TELEPHONE TRIAGE IHE Encounter Template Text not used by VA Social History: Smoking Status (Most current) and Tobacco Use (All prior to encounter date) This section includes the most current, and the historical, smoking and tobacco- related health factors from the [place] facility where the Encounter took place. Current Smoking Status This section includes the most current smoking, or tobacco-related health factor, from the [place] facility where the Encounter took place. Date/Time Current Smoking Status Comment Td garcia Jan 28, 2023 09:15 AM VA-TOBACCO USER EVERY DAY [facility] Tobacco Use History This section includes a history of the smoking, or tobacco-related health factors, that were collected on or before the date of the Encounter. The data comes from the [place] facility where the Encounter took place. Date/Time Smoking Status/Tobacco Use Comment Rasheeda soila Jan 28, 2023 09:15 AM VA-TOBACCO USE ADVICE [facility] Jan 28, 2023 09:15 AM VA-TOBACCO USE POLISHER EYEGLASS FRAMES NO [facility] Jan 28, 2023 09:15 AM VA-TOBACCO USE MED NO [facility] Jan 28, 2023 09:15 AM VA-TOBACCO USE WI 30 MIN OF WAKE UP [facility] Jan 28, 2023 09:15 AM VA-TOBACCO USER EVERY DAY [facility] Dec 06, 2021 11:15 AM VA-TOBACCO DOESNT USE WI 30 MIN WAKEUP [facility] Dec 06, 2021 11:15 AM VA-TOBACCO USE 30 YEARS OR MORE [facility] Dec 06, 2021 11:15 AM VA-TOBACCO USE ADVICE [facility] Dec 06, 2021 11:15 AM VA-TOBACCO USE POLISHER EYEGLASS FRAMES NO [facility] Dec 06, 2021 11:15 AM VA-TOBACCO USE MED NO [facility] Dec 06, 2021 11:15 AM VA-TOBACCO USER EVERY DAY [facility] Nov 07, 2020 09:15 AM VA-TOBACCO FORMER USER [facility] Nov 07, 2020 09:15 AM VA-TOBACCO QUIT 15 YRS OR MORE [facility] September 04, 2018 09:00 AM VA-TOBACCO USE 30 YEARS OR MORE [facility] September 04, 2018 09:00 AM VA-TOBACCO USE ADVICE [facility] September 04, 2018 09:00 AM VA-TOBACCO USE POLISHER EYEGLASS FRAMES NO [facility] September 04, 2018 09:00 AM VA-TOBACCO USE MED NO [facility] September 04, 2018 09:00 AM VA-TOBACCO USE WI 30 MIN OF WAKE UP [facility] September 04, 2018 09:00 AM VA-TOBACCO USER EVERY DAY [facility] Sep 09, 2017 09:41 AM FORMER TOBACCO USE >1Y <7Y [facility] Oct 01, 2016 03:22 PM CURRENT TOBACCO USER [facility] September 02, 2015 03:18 PM FORMER TOBACCO USE <1Y [facility] August 18, 2014 10:08 AM FORMER TOBACCO USE >1Y <7Y [facility] Oct 14, 2013 09:37 AM CURRENT TOBACCO USER [facility] Oct 07, 2012 10:00 AM CURRENT TOBACCO USER [facility] Oct 02, 2011 08:10 AM CURRENT TOBACCO USER [facility] Sep 30, 2009 11:25 AM CURRENT TOBACCO USER [facility] Encounter Notes: All associated encounter notes This section contains the clinical notes associated to the Encounter. Date/Time Encounter Note(s) Provider Source Feb 13, 2024 01:09 PM ADDENDUM: LOCAL TITLE: Addendum STANDARD TITLE: ADDENDUM DATE OF NOTE: FEB 13, 2024@13:09:27 ENTRY DATE: FEB 13, 2024@13:09:27 AUTHOR: NILSA MACKENZIE EXP COSIGNER: URGENCY: STATUS: COMPLETED [place] called back. Madison would like to add regarding the compression sock request. Madison would like the compression stocking to include 3 closed toes and 1 open toe. stated that he have called about this 3 weeks ago and have not receive an update. Please contact Madison at [phone] to update and for questions. /ariadna/ NILSA VELA 23 [facility] Signed: 02/13/2024 13:16 Receipt Acknowledged By: 02/14/2024 15:27 /ariadna/ LUMA EUBANKS RN REGISTERED NURSE --- Original Document --- 02/13/24 CCC: SCHEDULING ADMINISTRATION: Primary Care Call Center Primary Care Provider Call. Please contact at the following number: [phone] Other: requests compression hose - has not received any. Shoe size 12 This note was created by a 3 [facility] Call Center FAWN/JEANIE. Please do not alert this manual writer by adding as a signer for future communications. Alerts are not monitored by this user, please reach out to [facility] Leadership instead if indicated. /kwan GARCES MSA,3 [facility] Signed: 02/13/2024 12:58 Receipt Acknowledged By: 02/14/2024 15:27 /kwan EUBANKS RN REGISTERED NURSE [facility] Feb 13, 2024 12:55 PM ADMINISTRATIVE NOT E: LOCAL TITLE: CCC: SCHEDULING ADMINISTRATION STANDARD TITLE: ADMINISTRATIVE NOTE DATE OF NOTE: FEB 13, 2024@12:55 ENTRY DATE: FEB 13, 2024@12:55:11 AUTHOR: LALA GARCES COSIGNER: URGENCY: STATUS: COMPLETED CCC: SCHEDULING ADMINISTRATION Has ADDENDA [facility] Call Center Primary Care Provider Call. Please contact at the following number: [phone] Other: requests compression hose - has not received any. Shoe size 12 This note was created by a [address] Call [place] FAWN/JEANIE. Please do not alert this manual writer by adding as a signer for future communications. Alerts are not monitored by this user, please reach out to [facility] Leadership instead if indicated. /kwan GARCES MSA,3 [facility] Signed: 02/13/2024 12:58 Receipt Acknowledged By: 02/14/2024 15:27 /kwan EUBANKS RN REGISTERED NURSE 02/13/2024 ADDENDUM STATUS: COMPLETED called back. would like to add regarding the compression sock request. would like the compression stocking to include 3 closed toes and 1 open toe. Madison stated that he have called about this 3 weeks ago and have not receive an update. Please contact Madison at [phone] to update and for questions. /kwan MACKENZIE VSN 23 [facility] Signed: 02/13/2024 13:16 Receipt Acknowledged By: 02/14/2024 15:27 /kwan EUBANKS RN REGISTERED NURSE 02/14/2024 ADDENDUM STATUS: COMPLETED Consult placed for compression stockings, pending approval. /kwan EUBANKS RN REGISTERED NURSE Signed: 02/14/2024 15:29 LALA GARCES [facility]
--- OUTSIDE RECORDS SUMMARY | 2024-03-25 15:24 | XMS_ITS | Encounter Summary ---
Author Name [facility] [place] Organization [place] Address [address] [place] [address] Care Team Providers Care Fisher Name Role Phone SANDY ROBLERO Primary Care [...] PART B Dec [birth year] 1989 PART B [id number] LINDSAY ANDERSON PATIENT MEDICARE (WNR) MEDICARE (M) PART B Dec 07, 1991 PART B [id number] LINDSAY ANDERSON PATIENT MEDICARE (WNR) MEDICARE (M) PART A Apr 08, 1989 PART A [id number] LINDSAY ANDERSONY PATIENT MEDICARE (WNR) MEDICARE (M) PART A Apr 08, 1989 PART A [id number] LINDSAY ANDERSON PATIENT Selected Encounter This section includes the information on record at [place] for the Encounter. Date/Time Encounter Type Encounter Description Reason Pro vider Source Feb 11, 2024 12:00 AM Outpatient Encounter EVENT (HISTORICAL) IHE Encounter Template Text not used by VA Immunizations: All administered on the encounter date This section contains immunizations associated to the Encounter. Immunization Series Date Issued Reaction Comments COVID-19 (MODERNA), MRNA, LN P-S, PF, 50 MCG/0.5 ML (AGES 12+ YEARS) Feb 11, 2024 INFLUENZA, HIGH-DOSE, TRIVALENT, PF Feb 10 Social History: Smoking Status (Most current) and [...] ity Jan 28, 2023 09:15 AM VA-TOBACCO USER EVERY DAY [facility] Tobacco Use History This section includes a history of the smoking, or tobacco-related health factors, that were collected on or before the date of the Encounter. The data comes from the [place] facility where the Encounter took place. Date/Time Smoking Status/Tobacco Use Comment F acility Jan 28, 2023 09:15 AM VA-TOBACCO USE ADVICE [facility] Jan 28, 2023 09:15 AM VA-TOBACCO USE BILINGUAL TRAINER NO [facility] Jan 28, 2023 09:15 AM VA-TOBACCO USE MED NO [facility] Jan 28, 2023 09:15 AM VA-TOBACCO USE WI 30 MIN OF WAKE UP [facility] Jan 28, 2023 09:15 AM VA-TOBACCO USER EVERY DAY [facility] Dec 06, 2021 11:15 AM VA-TOBACCO DOESNT USE WI 30 MIN WAKEUP [facility] Dec 06, 2021 11:15 AM VA-TOBACCO USE 30 YEARS OR MORE [facility] Dec 06, 2021 11:15 AM VA-TOBACCO USE ADVICE [facility] Dec 06, 2021 11:15 AM VA-TOBACCO USE BILINGUAL TRAINER NO [facility] Dec 06, 2021 11:15 AM VA-TOBACCO USE MED NO [facility] Dec 06, 2021 11:15 AM VA-TOBACCO USER EVERY DAY [facility] Nov 07, 2020 09:15 AM VA-TOBACCO FORMER USER [facility] Nov 07, 2020 09:15 AM VA-TOBACCO QUIT 15 YRS OR MORE [facility] September 04, 2018 09:00 AM VA-TOBACCO USE 30 YEARS OR MORE [facility] September 04, 2018 09:00 AM VA-TOBACCO USE ADVICE [facility] September 04, 2018 09:00 AM VA-TOBACCO USE BILINGUAL TRAINER NO [facility] September 04, 2018 09:00 AM VA-TOBACCO USE MED NO [facility] September 04, 2018 09:00 AM VA-TOBACCO USE WI 30 MIN OF WAKE UP [facility] September 04, 2018 09:00 AM VA-TOBACCO USER EVERY DAY [facility] Sep 09, 2017 09:41 AM FORMER TOBACCO USE >1Y <7Y [facility] Oct 01, 2016 03:22 PM CURRENT TOBACCO USER [facility] September 02, 2015 03:18 PM FORMER TOBACCO USE <1Y [facility] August 18, 2014 10:08 AM FORMER TOBACCO USE >1Y <7Y [facility] Oct 14, 2013 09:37 AM CURRENT TOBACCO USER [facility] Oct 07, 2012 10:00 AM CURRENT TOBACCO USER [facility] Oct 02, 2011 08:10 AM CURRENT TOBACCO USER [facility] Sep 30, 2009 11:25 AM CURRENT TOBACCO USER [facility]
--- OUTSIDE RECORDS SUMMARY | 2024-03-25 15:24 | XMS_ITS | Encounter Summary ---
Author Name [facility] [place] [facility] [place] [place] Address [address] [place] [address] Care Team Providers Care Chief Lock Operator Name Role Phone SANDY ROBLERO Primary Care [...] PART B Dec 07, 1989 PART B [id number] [phone] LINDSAY ANDERSON PATIENT MEDICARE (WNR) MEDICARE (M) PART B Dec 07, 1989 PART B [id number] [facility] [phone] JUSTIN,LINDSAY PALACIOS PATIENT MEDICARE (WNR) MEDICARE (M) PART A Apr 08, 1989 PART A [id number] [phone] JUSTIN,LINDSAY LUY PATIENT MEDICARE (WNR) MEDICARE (M) PART A Apr 08, 1989 PART A [id number] [phone] LINDSAY ANDERSON PATIENT Selected Encounter This section includes the information on record at [place] for the Encounter. Date/Time Encounter Type Encounter Description Reason Pro vider Source Feb 25, 2024 08:03 AM Outpatient Encounter PRIMARY CARE/MEDICINE IHE Encounter Template Text not used by [place] Social History: Smoking Status (Most current) and Tobacco Use (All prior to encounter date) This section includes the most current, and the historical, smoking and tobacco- related health factors from the [place] facility where the Encounter took place. Current Smoking Status This section includes the most current smoking, or tobacco-related health factor, from the [place] facility where the Encounter took place. Date/Time Current Smoking Status Comment Td garcia Jan 28, 2023 09:15 AM VA-TOBACCO USER EVERY DAY [facility] Tobacco Use History This section includes a history of the smoking, or tobacco-related health factors, that were collected on or before the date of the Encounter. The data comes from the [place] facility where the Encounter took place. Date/Time Smoking Status/Tobacco Use Comment Rasheeda accain Jan 28, 2023 09:15 AM VA-TOBACCO USE ADVICE [facility] Jan 28, 2023 09:15 AM VA-TOBACCO USE PRUNER NO [facility] Jan 28, 2023 09:15 AM VA-TOBACCO USE MED NO [facility] Jan 28, 2023 09:15 AM VA-TOBACCO USE [place] 30 [address] OF WA[facility] UP [facility] Jan 28, 2023 09:15 AM VA-TOBACCO USER EVERY DAY [facility] Dec 06, 2021 11:15 AM VA-TOBACCO DOESNT USE WI [address] [facility] Dec 06, 2021 11:15 AM VA-TOBACCO USE [address] [facility] Dec 06, 2021 11:15 AM VA-TOBACCO USE ADVICE [facility] Dec 06, 2021 11:15 AM VA-TOBACCO USE PRUNER NO [facility] Dec 06, 2021 11:15 AM VA-TOBACCO USE MED NO [facility] Dec 06, 2021 11:15 AM VA-TOBACCO USER EVERY DAY [facility] Nov 07, 2020 09:15 AM VA-TOBACCO FORMER USER [facility] Nov 07, 2020 09:15 AM VA-TOBACCO QUIT [address] [facility] September 04, 2018 09:00 AM VA-TOBACCO USE [address] [facility] September 04, 2018 09:00 AM VA-TOBACCO USE ADVICE [facility] September 04, 2018 09:00 AM VA-TOBACCO USE PRUNER NO [facility] September 04, 2018 09:00 AM VA-TOBACCO USE MED NO [facility] September 04, 2018 09:00 AM VA-TOBACCO USE [place] [address] [facility] September 04, 2018 09:00 AM VA-TOBACCO USER EVERY DAY [facility] Sep 09, 2017 09:41 AM FORMER TOBACCO USE >1Y <7Y [facility] Oct 01, 2016 03:[address] USER [facility] September 02, 2015 03:18 PM FORMER TOBACCO USE <1Y [facility] August 18, 2014 10:08 AM FORMER TOBACCO USE >1Y <7Y [facility] Oct 14, 2013 09:37 AM CURRENT TOBACCO USER [facility] Oct 07, 2012 10:00 [address]RENT TOBACCO USER [facility] Oct 02, 2011 08:10 AM CURRENT TOBACCO USER [facility] Sep 30, 2009 11:25 AM CURRENT TOBACCO USER [facility] Encounter Notes: All associated encounter notes This section contains the clinical notes associated to the Encounter. Date/Time Encounter Note(s) Provider Source Feb 25, 2024 08:03 AM REPORT OF CONTACT: LOCAL TITLE: APPOINTMENT SCHEDULING NOTE STANDARD TITLE: REPORT OF CONTACT DATE OF NOTE: FEB 25, 2024@08:03 ENTRY DATE: FEB 25, 2024@08:03:11 AUTHOR: KIARA WARD EXP COSIGNER: URGENCY: STATUS: COMPLETED Attempted to schedule Cancellation Patient cancellation Contact attempt made to 1st attempt Telephone 2nd attempt Letter - Sent letter by regular [place] mail to address on file: [address], [place] [address] Disposition order request after If calls back, schedule appt for: ROXANN PACT TEAL WH 4E RTC +12M W/ CO-MANAGED CARE FED:01/28/23 /ariadna/ KIARA WARD Advance Design Assembler Signed: 02/25/2024 08:[address] [facility]
--- OUTSIDE RECORDS SUMMARY | 2024-03-25 15:24 | XMS_ITS | Data Portability ---
Author Organization [place] - [facility], [employer] Address [address] [place] [address] Assessment Encounter Date Assessment Date Assessment LastModified by Organization Details LastModified Time 03/28/2022 03/28/2022 Nails debrided 1-5 bilateral without complication. The patient can be seen every 3 months or sooner if problems arise. Not available 03/28/2022 14:27:53 06/29/2022 06/29/2022 Nails debrided 1-5 bilateral without complication. The patient can be seen every 3 months or sooner if problems arise. ABN signed and scanned. Not available 06/29/2022 11:20:28 10/05/2022 10/05/2022 Nails debrided 1-5 bilateral without complication. The patient can be seen every 3 months or sooner if problems arise. ABN signed and scanned. Not available 10/05/2022 10:40:09 01/04/2023 01/04/2023 Nails debrided 1-5 bilateral without complication. The patient can be seen every 3 months or sooner if problems arise. ABN signed and scanned. Not available 01/04/2023 11:23:28 Plan of Treatment Reminders Order Date Submit Date Provider Last Modified By Organization Details Last Modified Time Details Appointments None record ed. Lab None record ed. Referral None record ed. Procedures None record ed. Surgeries None record ed. Imaging None record ed. Medication Orders None record ed. Patient TargetsNo targets recorded. Patient InstructionsNo instructions recorded. Reason for Referral None Reported. Procedures Surgical History Date Name Laterality Status Provider Name and Address Organization Details Recorded Time 01/05/[address] Aniyah Tiwari, DPM [address] [place], [address], [facility] 01/04/2023 11:23:33 10/06/[address] Dill completed Toro Tiwari, HARDIK [address] [place], [address], [facility] 10/05/2022 10:39:49 06/30/[address] Dill completed Toro Tiwari, HARDIK [address] [place], [address], [facility] 06/29/2022 11:20:05 03/28/[address] Dill completed Toro Tiwari, HARDIK [address] [place], [address], [facility] 03/28/2022 14:11:30 Imaging Results None recorded. Procedure Notes None recorded. Medical Equipment None Reported. Allergies Allergen ID Allergen Name Allergen Category Reaction Reaction Severity Criticality Documentation Date Start Date Code Code System Note Provider Name and Address Organization Details Recorded Time 855 aspirin medicatio n Not available Not available Not available 03/28/2022 1191 RxNorm Luz Fern [facility] 2 09:11:22 856 loratadin e medicatio n Not available Not available Not available 03/28/2022 07820 RxNorm Luz Fern [facility] 2 09:11:31 Medications Name Sig Start Date Stop Date Status Note LastModified by Organization Details LastModified Time methocarbamol 500 mg tablet active Not Available Not Availabl e Not Available primidone 50 mg tablet TAKE FIVE TABLETS BY MOUTH TWICE DAILY* active Not Available Not Available No t Available chlorthalidone 25 mg tablet TAKE ONE TABLET BY MOUTH ONE TIME DAILY* active Not Available Not Available No t Available IBU 600 mg tablet TAKE ONE TABLET BY MOUTH FOUR TIMES DAILY WITH MEALS NEEDED FOR PAIN* active Not Available Not Available No t Available propranolol 20 mg tablet TAKE ONE TABLET BY MOUTH TWICE DAILY* active Not Available Not Available No t Available atenolol 50 mg tablet Take 1 Tablet (50 mg) by mouth once daily.* active Not Available Not Available No t Available Vitals Date Recorded Body height Body mass index (BMI) Body weight Provider Name and Address Organization Details Last Updated DateTime 03/28/2022 167.64 cm 41.2 kg/m2 198543.05 g Luz [facility] 03/28/2022 13:48:33 Social History None recorded. Functional Status None recorded. Mental Status None recorded. Family History Nothing Reported. Medical History No medical history recorded. Past Encounters Encounter ID Performer Location Encounter Start Date Encounter Closed Date Diagnosis/Indication Diagnosis SNOMED-CT Code Diagnosis ICD10 Code [id number] [address] [place] [address] [id number] 4 03/28/2022 13:43:16 03/28/2022 15:34:07 Ingrowing nail 562164393 L60.0 Pain in left foot 896935 7369 56453 M79.672 Pain in right foot 09154 59367 83661 M79.671 [id number] [facility] [address] [place] [address] [id number] 4 06/29/2022 11:10:28 07/02/2022 13:05:43 Ingrowing nail 226089162 L60.0 Pain in left foot 501599 0012 42285 M79.672 Pain in right foot 32924 38946 30216 M79.671 [id number] Toro Tiwari DPM [facility] [address] [place] [address] [id number] 4 10/05/2022 10:23:18 10/10/2022 12:22:40 Ingrowing nail 463131566 L60.0 Pain in left foot 762277 2600 71255 M79.672 Pain in right foot 43978 80993 86959 M79.671 [id number] [facility] [address] [place] [address] [id number] 4 01/04/2023 11:17:02 01/07/2023 09:27:16 Ingrowing nail 163989683 L60.0 Pain in left foot 363298 8344 40160 M79.672 Pain in right foot 46753 63507 42777 M79.671 Health Concerns Section Related Observation LastModified by Organization Detai ls LastModified Time None Recorded Concern Status LastModified by Organization Details LastModified Time None Recorded Advance Directives Directive None Recorded Payers Encounter Date Sequence Insurance Name Policy Number Policy Agosto Covered Member ID Agosto Member ID Guarantor Name 03/28/2022 [facility] Daniel Marleny [id number] Daniel W Marleny 06/29/2022 [facility] Daniel Marleny [id number] Daniel W Marleny 10/05/2022 [facility] Daniel Marleny [id number] Daniel W Marleny 01/04/2023 [facility] Daniel Marleny [id number] Daniel W Marleny Notes Date Note Type Note Provider Name and Address Organization Details Recorded Time 03/28/2022 text/html Patient is a 76 year old male new patient who presents with the chief complaint with his as a referral from the [place]. Presents today for evaluation of problematic toenails and feet in general. They relate chronic thickening and deformity to their toenails that has not responded to self-trimming, topical qneo-ipx-kvszviy anti-fungal therapy, foot soaks, and other similar conservative treatments. Nails are painful with shoegear and catching on socks. [facility]. Denies any recent foot injury or infection. Claudication symptoms: no Burning symptoms: no Paresthesia: no Patient presents for further evaluation and treatment options. Toro Tiwari, HARDIK [address] [place], [address], [facility] 03/28/2022 14:27:55 06/29/2022 text/html Patient is a 76 year old male established patient who presents with the chief complaint with his as a referral from the [place]. Presents today for evaluation of problematic toenails and feet in general. They relate chronic thickening and deformity to their toenails that has not responded to self-trimming, topical zzom-sio-bglrrxv anti-fungal therapy, foot soaks, and other similar conservative treatments. Nails are painful with shoegear and catching on socks. [facility]. Denies any recent foot injury or infection. Claudication symptoms: noBurning symptoms: noParesthesia: no Patient presents for further evaluation and treatment options. Toro Tiwari DPM [address] [place], [address], [facility] 06/29/2022 11:20:30 10/05/2022 text/html Patient is a 76 year old male established patient who presents with the chief complaint with his as a referral from the [place]. Presents today for evaluation of problematic toenails and feet in general. They relate chronic thickening and deformity to their toenails that has not responded to self-trimming, topical gwct-alo-ibuwfil anti-fungal therapy, foot soaks, and other similar conservative treatments. Nails are painful with shoegear and catching on socks. [facility]. Denies any recent foot injury or infection. Claudication symptoms: noBurning symptoms: noParesthesia: no Patient presents for further evaluation and treatment options. Toro Tiwari DPM [address] [place] [address], [phone], [facility] 10/05/2022 10:40:20 01/04/2023 text/html Patient is a 77 year old male established patient who presents with the chief complaint with his as a referral from the [place]. Presents today for evaluation of problematic toenails and feet in general. They relate chronic thickening and deformity to their toenails that has not responded to self-trimming, topical ryzp-xkm-exzuhxh anti-fungal therapy, foot soaks, and other similar conservative treatments. Nails are painful with shoegear and catching on socks. [facility]. Denies any recent foot injury or infection. Claudication symptoms: noBurning symptoms: noParesthesia: no Patient presents for further evaluation and treatment options. Toro Tiwari DPM [address] [place], [address], [facility] 01/04/2023 11:23:46
--- OUTSIDE RECORDS SUMMARY | 2024-03-25 15:24 | XMS_ITS | Encounter Summary ---
Author Name [facility] [place] [facility] [place] Address [address] [place] [address] Care Team Providers Care Hourly Team Members Name Role Phone SANDY ROBLERO Primary Care [...] PART B Dec 07, 1991 PART B [id number] [phone] LINDSAY ANDERSON PATIENT MEDICARE (WNR) MEDICARE (M) PART B Dec 07, 1989 PART B [id number] [facility] [phone] JUSTIN,LINDSAY PALACIOS PATIENT MEDICARE (WNR) MEDICARE (M) PART A Apr 08, 1989 PART A [id number] JUSTIN,LINDSAY PALACIOS PATIENT MEDICARE (WNR) MEDICARE (M) PART A Apr 08, 1989 PART A [id number] [facility] [phone] LINDSAY ANDERSON PATIENT Selected Encounter This section includes the information on record at [place] for the Encounter. Date/Time Encounter Type Encounter Description Reason Pro vider Source Mar 06, 2024 02:28 PM Outpatient Encounter TELEPHONE TRIAGE IHE Encounter Template Text not used by [facility] Social History: Smoking Status (Most current) and Tobacco Use (All prior to encounter date) This section includes the most current, and the historical, smoking and tobacco- related health factors from the [place] facility where the Encounter took place. Current Smoking Status This section includes the most current smoking, or tobacco-related health factor, from the [place] facility where the Encounter took place. Date/Time Current Smoking Status Comment Td garcia Jan 28, 2023 09:15 AM VA-TOBACCO USER EVERY DAY [facility] Tobacco Use History This section includes a history of the smoking, or tobacco-related health factors, that were collected on or before the date of the Encounter. The data comes from the [place] facility where the Encounter took place. Date/Time Smoking Status/Tobacco Use Comment Rasheeda soila Jan 28, 2023 09:15 AM VA-TOBACCO USE ADVICE [facility] Jan 28, 2023 09:15 AM VA-TOBACCO USE FLEET ADMINISTRATIVE ASSISTANT NO [facility] Jan 28, 2023 09:15 AM VA-TOBACCO USE MED NO [facility] Jan 28, 2023 09:15 AM VA-TOBACCO USE WI 30 MIN OF WAKE UP [facility] Jan 28, 2023 09:15 AM VA-TOBACCO USER EVERY DAY [facility] Dec 06, 2021 11:15 AM VA-TOBACCO DOESNT USE WI 30 MIN WAKEUP [facility] Dec 06, 2021 11:15 AM VA-TOBACCO USE 30 YEARS OR MORE [facility] Dec 06, 2021 11:15 AM VA-TOBACCO USE ADVICE [facility] Dec 06, 2021 11:15 AM VA-TOBACCO USE FLEET ADMINISTRATIVE ASSISTANT NO [facility] Dec 06, 2021 11:15 AM VA-TOBACCO USE MED NO [facility] Dec 06, 2021 11:15 AM VA-TOBACCO USER EVERY DAY [facility] Nov 07, 2020 09:15 AM VA-TOBACCO FORMER USER [facility] Nov 07, 2020 09:15 AM VA-TOBACCO QUIT 15 YRS OR MORE [facility] September 04, 2018 09:00 AM VA-TOBACCO USE 30 YEARS OR MORE [facility] September 04, 2018 09:00 AM VA-TOBACCO USE ADVICE [facility] September 04, 2018 09:00 AM VA-TOBACCO USE FLEET ADMINISTRATIVE ASSISTANT NO [facility] September 04, 2018 09:00 AM VA-TOBACCO USE MED NO [facility] September 04, 2018 09:00 AM VA-TOBACCO USE WI 30 MIN OF WAKE UP [facility] September 04, 2018 09:00 AM VA-TOBACCO USER EVERY DAY [facility] Sep 09, 2017 09:41 AM FORMER TOBACCO USE >1Y <7Y [facility] Oct 01, 2016 03:22 PM CURRENT TOBACCO USER [facility] September 02, 2015 03:18 PM FORMER TOBACCO USE <1Y [facility] August 18, 2014 10:08 AM FORMER TOBACCO USE >1Y <7Y [facility] Oct 14, 2013 09:37 AM CURRENT TOBACCO USER [facility] Oct 07, 2012 10:00 AM CURRENT TOBACCO USER [facility] Oct 02, 2011 08:10 AM CURRENT TOBACCO USER [facility] Sep 30, 2009 11:25 AM CURRENT TOBACCO USER [facility] Encounter Notes: All associated encounter notes This section contains the clinical notes associated to the Encounter. Date/Time Encounter Note(s) Provider Source Mar 06, 2024 02:28 PM ADMINISTRATIVE NOT E: LOCAL TITLE: CCC: SCHEDULING ADMINISTRATION STANDARD TITLE: ADMINISTRATIVE NOTE DATE OF NOTE: MAR 06, 2024@14:28 ENTRY DATE: MAR 06, 2024@14:28:43 AUTHOR: YOMAIRA JETER EXP COSIGNER: URGENCY: STATUS: COMPLETED CCC: SCHEDULING ADMINISTRATION Has [facility] Call Center Other: [facility] called today to request a call from pact nurse re; compression hose- consult dated 02/18/24 received 20-30 MM (they DO NOT work) and is requesting 40 MM pt. has always had the 40's for years prior to this we need a new order or the order stays and please call to discuss This note was created by a V23 [facility] Call Center AMSA/JEANIE. Please do not alert this technical document writer by adding as a signer for future communications. Alerts are not monitored by this user, please reach out to [facility] Leadership instead if indicated. please call to follow up Phone number verified as correct. #[phone] thank you /ariadna/ YOMAIRA JETER LPN LICENSED PRACTICAL NURSE [facility] CALL CENTER Signed: 03/06/2024 14:32 Receipt Acknowledged By: 03/16/2024 13:32 /ariadna/ LUMA EUBANKS RN REGISTERED NURSE 03/06/2024 ADDENDUM STATUS: COMPLETED pt reports receiving 40mmHg historically (although per prosthetics consult order was 20-30mmHg) pt reports compression stockings are too loose and are not effective to help control swelling. Teams msg sent to prosthetics for further recommendations. /es/ RADHA TALBERT RN REGISTERED NURSE Signed: 03/06/2024 15:22 YOMAIRA JETER [facility]
--- OUTSIDE RECORDS SUMMARY | 2024-03-25 15:24 | XMS_ITS | Encounter Summary ---
Author Name [facility] Address [address] [place] [address] Care Team Providers Care Buckle Assembler Name Role Phone SANDY ROBLERO Primary Care [...] PART B Dec 07, 1989 PART B [id number] [phone] LINDSAY ANDERSON PATIENT MEDICARE (WNR) MEDICARE (M) PART B Dec 07, 1989 PART B [id number] [phone] LINDSAY ANDERSON PATIENT MEDICARE (WNR) MEDICARE (M) PART A Apr 08, 1989 PART A [id number] [phone] LINDSAY ANDERSON PATIENT MEDICARE (WNR) MEDICARE (M) PART A Apr 08, 1989 PART A [id number] LINDSAY ANDERSON PATIENT Selected Encounter This section includes the information on record at [place] for the Encounter. Date/Time Encounter Type Encounter Description Reason Pro vider Source Mar 20, 2024 01:39 PM Outpatient Encounter TELEPHONE TRIAGE IHE Encounter Template Text not used by [facility] Social History: Smoking Status (Most current) and Tobacco Use (All prior to encounter date) This section includes the most current, and the historical, smoking and tobacco- related health factors from the [place] facility where the Encounter took place. Current Smoking Status This section includes the most current smoking, or tobacco-related health factor, from the [place] facility where the Encounter took place. Date/Time Current Smoking Status Comment Td garcia Jan 28, 2023 09:15 AM VA-TOBACCO USER EVERY DAY [facility] Tobacco Use History This section includes a history of the smoking, or tobacco-related health factors, that were collected on or before the date of the Encounter. The data comes from the [place] facility where the Encounter took place. Date/Time Smoking Status/Tobacco Use Comment Rasheeda soila Jan 28, 2023 09:15 AM VA-TOBACCO USE ADVICE [facility] Jan 28, 2023 09:15 AM VA-TOBACCO USE [employer] DEVELOPER NO [facility] Jan 28, 2023 09:15 AM VA-TOBACCO USE MED NO [facility] Jan 28, 2023 09:15 AM VA-TOBACCO USE WI 30 MIN OF WAKE UP [facility] Jan 28, 2023 09:15 AM VA-TOBACCO USER EVERY DAY [facility] Dec 06, 2021 11:15 AM VA-TOBACCO DOESNT USE WI 30 MIN WAKEUP [facility] Dec 06, 2021 11:15 AM VA-TOBACCO USE 30 YEARS OR MORE [facility] Dec 06, 2021 11:15 AM VA-TOBACCO USE ADVICE [facility] Dec 06, 2021 11:15 AM VA-TOBACCO USE [employer] DEVELOPER NO [facility] Dec 06, 2021 11:15 AM VA-TOBACCO USE MED NO [facility] Dec 06, 2021 11:15 AM VA-TOBACCO USER EVERY DAY [facility] Nov 07, 2020 09:15 AM VA-TOBACCO FORMER USER [facility] Nov 07, 2020 09:15 AM VA-TOBACCO QUIT 15 YRS OR MORE [facility] September 04, 2018 09:00 AM VA-TOBACCO USE 30 YEARS OR MORE [facility] September 04, 2018 09:00 AM VA-TOBACCO USE ADVICE [facility] September 04, 2018 09:00 AM VA-TOBACCO USE [employer] DEVELOPER NO [facility] September 04, 2018 09:00 AM VA-TOBACCO USE MED NO [facility] September 04, 2018 09:00 AM VA-TOBACCO USE WI 30 MIN OF WAKE UP [facility] September 04, 2018 09:00 AM VA-TOBACCO USER EVERY DAY [facility] Sep 09, 2017 09:41 AM FORMER TOBACCO USE >1Y <7Y [facility] Oct 01, 2016 03:22 PM CURRENT TOBACCO USER [facility] September 02, 2015 03:18 PM FORMER TOBACCO USE <1Y [facility] August 18, 2014 10:08 AM FORMER TOBACCO USE >1Y <7Y [facility] Oct 14, 2013 09:37 AM CURRENT TOBACCO USER [facility] Oct 07, 2012 10:00 AM CURRENT TOBACCO USER [facility] Oct 02, 2011 08:10 AM CURRENT TOBACCO USER [facility] Sep 30, 2009 11:25 AM CURRENT TOBACCO USER [facility] Encounter Notes: All associated encounter notes This section contains the clinical notes associated to the Encounter. Date/Time Encounter Note(s) Provider Source Mar 20, 2024 01:39 PM ADMINISTRATIVE NOT E: LOCAL TITLE: CCC: SCHEDULING ADMINISTRATION STANDARD TITLE: ADMINISTRATIVE NOTE DATE OF NOTE: MAR 20, 2024@13:39 ENTRY DATE: MAR 20, 2024@13:39:34 AUTHOR: MARIO MONTES EXP COSIGNER: URGENCY: STATUS: COMPLETED CCC: SCHEDULING ADMINISTRATION Has ADDENDA Primary Care Call Center Primary Care Provider Call. Please contact at the following number: Other: called in to stateing he received the 40mmHg historically (although per prosthetics consult order was 20-30mmHg) and would like for PCP to reorder the correct size. This note was created by a [facility] Call Center AMSA/MSA. Please do not alert this writer technical publications by adding as a signer for future communications. Alerts are not monitored by this user, please reach out to [facility] Leadership instead if indicated. /ariadna/ MARIO MONTES VISN23 [facility] MSA Signed: 03/20/2024 13:44 Receipt Acknowledged By: 03/20/2024 14:39 /es/ LUMA EUBANKS RN REGISTERED NURSE 03/20/2024 ADDENDUM STATUS: COMPLETED Discussed this w/ PCP. Called and spoke w/ patient to share update. Discussed w/ patient that his PCP reviewed his prosthetic consults for compression therapy and was not able to locate any compression higher than 20-30 mmHg. Patient reports he used to see a different provider in the community (retired) but unsure if that provider originally ordered the higher compression stockings. Patient will look through his records. Patient states he does not have an outside [facility]. /ariadna/ LUMA EUBANKS, DEBORAH REGISTERED NURSE Signed: 03/23/2024 12:27 MARIO MONTES [facility]
[2024-03-25 15:35] VITALS: BP 155/84; PULSE 66; RESP 16; TEMP 36.8; O2SAT 95; BMI 38.7
[2024-03-25 17:16] LABS: Basophils Percent Auto 0.3 % (0.0-3.0); Hemoglobin* 17.5 gm/dL (13.5-17.5); Immature Granulocytes Pct Auto 0.3 %; Lymphocytes Percent Auto 5.9 % (20-44); Mean Corpuscular HGB Conc 35 gm/dL (32-36); Mean Corpuscular Hemoglobin 31 pg (26-34); Mean Corpuscular Volume 89 fL (80-100); Monocytes Percent Auto 3.3 % (0.0-11.0); Neutrophils Percent Auto 90.2 % (42.0-72.0); Platelet Count* 277 K/uL (140-440); RDW Coefficient of Variation % 13.7 % (11.5-15.5); Red Blood Count 5.64 m/uL (4.30-5.90); White Blood Count* 14.37 K/uL (4.50-11.00)
[2024-03-25 17:29] LABS: Slide Review Reflex No
[2024-03-25 17:33] LABS: Appearance Urine Clear (Clear); Bilirubin Urine Negative (Negative); Blood Urine 3+ (Negative); Color Urine Yellow (Yellow); Glucose Urine Negative (Negative); Ketones Urine 1+ (Negative); Leukocyte Esterase Urine Negative (Negative); Nitrite Urine Negative (Negative); Protein Urine Trace (Negative); Specific Gravity Urine 1.025 (1.000-1.030); Urobilinogen Urine 0.2 (0.2-1.0)
--- NOTE | 2024-03-25 17:35 | CRLHL7_ITS ---
For Patients: As a result of the Century Cures Act, medical imaging exams and procedure reports are released immediately into your electronic medical record. You may view this report before your referring provider. If you have questions, please contact your health care provider. INDICATION: Right-sided abdominal pain, leukocytosis. TECHNIQUE: CT abdomen and pelvis acquired with 132 cc Isovue 370 IV contrast. COMPARISON: None. FINDINGS: Lower chest: Coronary artery calcifications. Elevation of the posterior right hemidiaphragm. Liver: Unremarkable. Normal in size and attenuation. No suspicious masses. Gallbladder and bile ducts: Unremarkable. No stones or inflammation. No biliary dilatation. Pancreas: Unremarkable. No mass or inflammation. Spleen: Unremarkable. Normal in size. No masses. Adrenal glands: Unremarkable. No nodules. Kidneys: 5 mm calcified stone in the proximal right ureter with associated upstream periureteral and perinephric inflammatory changes and mild right hydronephrosis. Bilateral nonobstructive renal calcifications, the largest of which is on the right measure up to 10 mm (2/62). No suspicious masses, stones, or hydronephrosis. GI tract: Unremarkable. Normal in caliber. No sign of mass or inflammation. Normal appendix. Vasculature: Atherosclerotic changes of the abdominal aorta and branch vessels. Focal aneurysmal dilation of the infrarenal abdominal aorta measuring up to 3.1 cm (2/80). Mesenteric arteries are patent. Lymph nodes: No lymphadenopathy. Peritoneum/Abdominal Wall: Right posterior intramuscular lipoma. No sign of mass or infiltration. No free air or significant free fluid. Pelvis: Bladder is unremarkable. Prostatomegaly. Bones: No acute or suspicious lesions. Left SI joint hardware with adjacent chronic osseous changes. Multilevel spinal degenerative changes. IMPRESSION: 1. 5 mm calcified stone in the proximal right ureter with associated upstream inflammatory changes and mild right hydronephrosis. 2. Incidentally noted focal aneurysmal dilation of the infrarenal abdominal aorta measuring up to 3.1 cm. Please note that all CT scans at this facility use dose modulation, iterative reconstruction, and/or weight-based dosing when appropriate to reduce radiation dose to as low as reasonably achievable. Dictated by Glenn Mccarty MD @ 03/25/2024 7:31:58 PM (Electronically Signed)
--- NOTE | 2024-03-25 17:36 | ED.ABDPAIN ---
HPI - Abdominal Pain General Time Seen by Provider: 17:36 Date Seen: 03/25/24 Chief Complaint: Abdominal Pain Stated Complaint: R side abdomen pain Time Seen by Provider: 03/25/24 17:35 Source: patient, family, RN notes reviewed and old records reviewed Mode of arrival: ambulatory Limitations: no limitations History of Present Illness HPI narrative: 78-year-old male who presents today with abdominal pain. Patient notes several days of right flank pain, no other symptoms. Chronic cough which is unchanged, denies fever, chills, nausea, vomiting, diarrhea, hematuria, dysuria. No prior cholecystectomy or appendectomy. Related Data Home Medications ?Medication ?Instructions ?Recorded ?Confirmed atenolol 50 mg tablet 50 mg 03/17/22 03/12/23 chlorthalidone 25 mg tablet 25 mg 03/17/22 03/12/23 ibuprofen 600 mg tablet mg 03/17/22 03/12/23 primidone 50 mg tablet 150 mg PO BID 03/19/22 03/25/24 Allergies Allergy/AdvReac Type Severity Reaction Status Date / Time aspirin Allergy Verified 03/25/24 15:45 PFSH PFS Social History Smoking Status: Current every day smoker Do you use any of these nicotine containing products: Smokeless Tobacco Second hand tobacco smoke exposure: No How often do you have a drink containing alcohol: never How often do you have six or more drinks on one occasion: Never AUDIT-C Alcohol total score: 0 Non-prescribed substance use: marijuana (any form) Exam Narrative: Exam Narrative: General: Well-developed and well-nourished, no acute distress Head: Atraumatic and normocephalic Eyes: Pupils are equal reactive, extraocular motions intact, conjunctiva clear ENT: External nose and ears are normal, posterior pharynx without erythema or exudate Neck: No midline cervical tenderness, full spontaneous range of motion the neck, trachea midline, no adenopathy Heart: Regular rate and rhythm no murmurs or thrills Lungs: Clear to auscultation bilaterally without wheezes or crackles Abdomen: Soft, right mid and upper quadrant abdominal tenderness, nondistended with active bowel sounds Musculoskeletal: No tenderness, deformity, or edema Neurologic: Awake, alert, and oriented x3, no gross focal neurologic deficits, cranial nerves intact as tested Psych: Mood and affect are appropriate Skin: No rashes Const: Vital Signs, click to edit/add: Vital Signs - 24 hr 03/25/24 15:35 Temperature 98.2 F Pulse Rate [Pulse Oximeter] 66 Respiratory Rate 16 Blood Pressure [Ri ght Upper Arm] 155/84 H Pulse Oximetry 95 Oxygen Delivery Me thod Room Air Course Course ED Course: Reviewed prior records including most recent primary care visit January 2024 which was for toe pain and wound as well as drainage from the left great toe, was started on doxycycline and was subsequently seen by Podiatry with diagnosis of ingrown toenail which was debrided and nail care discussed. Patient presents today with right back pain the last couple of days. On exam here, vital is stable, marked right upper quadrant and right mid abdominal tenderness. Labs ordered from triage independently interpreted by me with leukocytosis, urinalysis with 3+ blood, micro pending. He with abdominal tenderness, concern for acute cholecystitis, colitis, acute appendicitis. Also cannot exclude ureteral stone, urinary tract infection clinically less likely given urinalysis results and findings on exam. Remaining labs are pending, CT abdomen pelvis ordered. Reevaluation(s) Time of Reevaluation #1: 19:33 Reevaluation #1: CT scan independently interpreted by me demonstrates a 5 mm mid ureteral stone on the right. Also mild aneurysm dilatation of the infrarenal aorta at 3.1 cm which will need outpatient surveillance follow-up. Patient is stable for discharge, follow-up with urology. Vital Signs Vital signs: Initial Vital Signs Temperature 98.2 F 03/25/24 15:35 Temperature Source Temporal Artery Scan 03/25/24 15:35 Pulse Rate 66 03/25/24 15:35 Respiratory Rate 16 03/25/24 15:35 Blood Pressure 155/84 H 03/25/24 15:35 Blood Pressure Mean 107 H 03/25/24 15:35 Blood Pressure Position Sitting 03/25/24 15:35 Pulse Oximetry 95 03/25/24 15:35 Oxygen Delivery Method Room Air 03/25/24 15:35 Vital Signs Temperature 98.2 F 03/25/24 15:35 Pulse Rate 66 03/25/24 15:35 Respiratory Rate 16 03/25/24 15:35 Blood Pressure 155/84 H 03/25/24 15:35 Pulse Oximetry 95 03/25/24 15:35 Oxygen Delivery Method Room Air 03/25/24 15:35 Temperature 98.2 F 03/25/24 15:35 Pulse Rate 66 03/25/24 15:35 Respiratory Rate 16 03/25/24 15:35 Blood Pressure 155/84 H 03/25/24 15:35 Pulse Oximetry 95 03/25/24 15:35 Oxygen Delivery Method Room Air 03/25/24 15:35 Medications Administered Medications: Generic Name Dose Route Start Last Admin Trade Name Freq PRN Reason Stop Dose Admin Ketorolac Tromethamine 15 mg 03/25/24 19:45 03/25/24 19:57 Ketorolac 15 Mg/Ml Inj IVP 03/25/24 19:46 15 mg ONCE ONE Administration MDM - Abdominal Pain Lab Data Labs: Lab Results 03/25/24 03/25/24 Range/Units 16:02 17:05 WBC 14.37 H (4.50-11.00) K/uL RBC 5.64 (4.30-5.90) m/uL Hgb 17.5 (13.5-17.5) gm/dL Hct 50.0 (37.0-53.0) % MCV 89 (80-100) fL MCH 31 (26-34) pg MCHC 35 (32-36) gm/dL RDW Coeff of Michael 13.7 (11.5-15.5) % Plt Count 277 (140-440) K/uL Neut % (Auto) 90.2 H (42.0-72.0) % Lymph % (Auto) 5.9 L (20-44) % Curry % (Auto) 3.3 (0.0-11.0) % Eos % (Auto) 0.0 (0.0-7.0) % Baso % (Auto) 0.3 (0.0-3.0) % Neut # (Auto) 13.00 H (1.7-7.0) K/uL Lymph # (Auto) 0.80 L (0.90-2.90) K/uL Curry # (Auto) 0.50 (0.00-0.90) K/UL Eos # (Auto) 0.00 (0.00-0.50) K/uL Baso # (Auto) 0.00 (0.00-0.30) K/uL Abs Immat Gran (auto) 0.00 (0.00-0.30) K/uL Imm/Tot Granulo (auto) 0.3 % Sodium 134 L (135-149) mmol/L Potassium 4.4 (3.6-5.1) mmol/L Chloride 102 (96-114) mmol/L Carbon Dioxide 24 (20-32) mmol/L Anion Gap 8 (7-15) mEq/L BUN 15 (7-30) mg/dL Creatinine 0.8 (0.5-1.5) mg/dL Estimated Creat Clear 60.83 Estimated GFR 89 ml/min Glucose 156 H (60-115) mg/dL Calcium 10.2 (8.4-10.6) mg/dL Magnesium 2.3 (1.5-2.6) mg/dL Total Bilirubin 0.3 (0.1-1.5) mg/dL Direct Bilirubin 0.2 (0.0-0.5) mg/dL AST 28 (12-35) U/L ALT 38 (4-50) U/L Alkaline Phosphatase 77 (40-150) U/L Total Protein 7.6 (6.0-8.3) g/dL Albumin 4.3 (3.3-5.0) g/dL Lipase 74 (23-300) U/L Urine Color Yellow (Yellow) Urine Appearance Clear (Clear) Urine pH 6.0 (5.0-8.5) Ur Specific Carver 1.025 (1.000-1.030) Urine Protein Trace A (Negative) Urine Glucose (UA) Negative (Negative) Urine Ketones 1+ A (Negative) Urine Blood 3+ A (Negative) Urine Nitrite Negative (Negative) Urine Bilirubin Negative (Negative) Urine Urobilinogen 0.2 (0.2-1.0) Ur Leukocyte Esterase Negative (Negative) Urine RBC 5-10 A (0-2) Urine WBC 0-2 (0-5) Ur Squamous Epith Cells Few (None-Few) Urine Bacteria Few A (None) Discharge Plan Discharge Clinical Impression: Calculus of right ureter, Abdominal aortic aneurysm Patient Disposition: Home, Self-Care Condition: Stable Instructions: Nonruptured Abdominal Aortic Aneurysm (DC), Ureteral Stones (ED) Additional Instructions: Drink fluids to thirst Take Tylenol and ibuprofen for baseline pain management. Take oxycodone for pain not controlled with Tylenol ibuprofen Take Zofran as needed for nausea vomiting Call Urology to schedule follow-up [facility] (Izabella Sher, Axel Schaeffer, and others) [phone] [facility] ([place]) [phone] [facility] [phone] Activity Level: Activity as Tolerated Discharge Diet: Regular Prescriptions: No Action chlorthalidone 25 mg tablet 25 mg Patient Comments: TAKE ONE TABLET (25MG) BY MOUTH ONE TIME DAILY. ibuprofen 600 mg tablet Patient Comments: TAKE ONE TABLET BY MOUTH FOUR TIMES DAILY WITH MEALS NEEDED for pain. atenolol 50 mg tablet 50 mg Patient Comments: TAKE ONE TABLET BY MOUTH ONE TIME DAILY primidone 50 mg tablet 150 mg PO BID Follow Up/Referrals: LEANNE GILLESPIE DO [Primary Care Provider] - Stand Alone Forms: Outfittery Info Instructions
[2024-03-25 18:22] LABS: Bacteria Urine Few; Squamous Epithelial Cell Urine Few (None-Few); WBC Urine 0-2 (0-5)
[2024-03-25 18:30] LABS: Albumin* 4.3 g/dL (3.3-5.0)
[2024-03-25 18:31] LABS: Chloride* 102 mmol/L (96-114); Potassium* 4.4 mmol/L (3.6-5.1); Sodium* 134 mmol/L (135-149)
[2024-03-25 18:33] LABS: Anion Gap 8 mEq/L (7-15); Aspartate Amino Transferase* 28 U/L (12-35); Bilirubin Direct* 0.2 mg/dL (0.0-0.5); Bilirubin Total* 0.3 mg/dL (0.1-1.5); Carbon Dioxide* 24 mmol/L (20-32); Creatinine* 0.8 mg/dL (0.5-1.5); Est. Creatinine Clearance* 60.83; Estimated Glomerular Filt Rate 89 ml/min; Total Protein* 7.6 g/dL (6.0-8.3)
[2024-03-25 18:34] LABS: Alanine Aminotransferase* 38 U/L (4-50); Alkaline Phosphatase* 77 U/L (40-150); Blood Urea Nitrogen* 15 mg/dL (7-30); Calcium* 10.2 mg/dL (8.4-10.6); Glucose* 156 mg/dL (60-115); Lipase* 74 U/L (23-300); Magnesium* 2.3 mg/dL (1.5-2.6)
--- OUTSIDE RECORDS SUMMARY | 2024-03-25 18:39 | XMS_ITS | Continuity of Care Document ---
Author Name [facility] Organization [facility] Care Team Providers Care Veneer Glue Spreader Name Role Phone [facility] Unavailable Unavailable Problems Combined list of problems from Department of Defense and Veterans Affairs facilities. It does not include entries that were removed or entered in error. Problem Status Onset Date Problem Type Date of Resolution Comments Source Exposure to potentially hazardous substance ([facility] [id number]) Active 06/13/19 24 Condition Jun 13, 2023 Entered By: TADEO HOOKS [facility]: [facility]LE Documentation Initiative [facility] Chronic obstructive lung disease (SNOMED CT 35993719) Active Condition [facility] Chronic venous insufficiency Active Condition [facility] Co-Managed Care Active Condition Dec 06, 2021 Entered By: SANDY ROBLERO Comment: PCP: Dr. Alonso (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 ?smoking related. BM Bx done 2019 (María Elena) [facility] Prediabetes Active Condition [facility] Tinnitus * (ICD-9-CM 388.30) Active Condition [facility] Tobacco use (SNOMED CT 352468190) Active Condition [facility] Diagnosis: ICD-10-CM G47.30 Sleep apnea, unspecified Active Diagnosis [facility] Diagnosis: ICD-10-CM L60.[address] Diagnosis [facility] Diagnosis: ICD-10-CM Z72.0 Tobacco use Active Diagnosis [facility] Medications Combined list of outpatient medications from [facility] and [facility] facilities.Medications provided include 1) outpatient medications from the last 15 months, and 2) patient-reported medications. Medication Details Route Status Patient Instructions Prescription Expires Prescription Number Last Dispense Date Ordering Provider Order Date Order Qty Source ATENOLOL 50MG TAB TAKE ONE TABLET BY MOUTH DAILY ORAL ACTIVE Aniyah KUHN 2011 [facility] CHLORTHALID ONE 25MG TAB TAKE ONE TABLET BY MOUTH EVERY DAY ORAL ACTIVE GALA ROBLERO 2021 [facility] PRIMIDONE 50MG TAB TAKE ONE TABLET BY MOUTH TWICE A DAY ORAL ACTIVE Real MERRITT 2016 [facility] Allergies, Adverse Reactions, Alerts Combined list of allergies from [facility] and [facility] facilities. It does not include entries that were removed or entered in error. Substance Category Reaction Severity Reaction type Status Date Reported Comments Source ASPIRIN Propensity to adverse reactions to drug (finding) Gastrointes tinal hemorrhage active 0 [facility] LORATADINE Propensity to adverse reactions to drug (finding) Itching active 4 [facility] Immunizations Combined list of available immunizations from the [facility] and [facility] facilities. Immunization Series Date Given Administered By Site Reaction Lot Number CVX Code Drug Powerhouse Engineer Status Comments Source COVID-19 (MODERNA), MRNA, LNP-S, PF, 50 MCG/0.5 ML (AGES 12+ YEARS) 2023 312 complet ed [facility] INFLUENZA, HIGH-DOSE, TRIVALENT, PF 2023 135 complet ed [facility] COVID-19 (MODERNA), MRNA, LNP-S, PF, 50 MCG/0.5 ML (AGES 12+ YEARS) 2022 312 complet ed [facility] INFLUENZA, HIGH-DOSE, QUADRIVALENT 2022 197 complet ed [facility] RSV, RECOMBINANT, PROTEIN SUBUNIT RSVPREF, ADJUVANT RECONSTITUTED , 0.5 ML, PF 2022 303 complet ed [facility] INFLUENZA VACCINE, QUADRIVALENT, ADJUVANTED 2021 205 complet ed [facility] TDAP 2021 115 complet ed per [facility] COVID-19 (PFIZER), MRNA, LNP-S, PF, 30 MCG/0.3 ML DOSE, DONNA-SUCROSE (AGES 12+ YEARS) 4 2021 217 complet ed [facility] COVID-19 (PFIZER), MRNA, LNP-S, PF, 30 MCG/0.3 ML DOSE 3 2020 208 complet ed [facility] INFLUENZA, HIGH-DOSE, QUADRIVALENT 2020 197 complet ed [facility] COVID-19 ([place]), MRNA, LNP-S, PF, 30 MCG/0.3 ML DOSE 2020 208 complet ed [facility] COVID-19 ([place]), MRNA, LNP-S, PF, 30 MCG/0.3 ML DOSE 2020 208 complet ed [facility] INFLUENZA, HIGH-DOSE, QUADRIVALENT 2019 197 complet ed [facility] INFLUENZA, TRIVALENT, ADJUVANTED 2018 168 complet ed [facility] PNEUMOCOCCAL POLYSACCHARID E PPV23 2018 33 complet ed [facility] ZOSTER RECOMBINANT 2 2017 187 complet ed [facility] ZOSTER RECOMBINANT 1 2016 187 complet ed [facility] INFLUENZA, HIGH DOSE SEASONAL 2016 135 complet ed [facility] INFLUENZA, HIGH DOSE SEASONAL 2016 135 complet ed [facility] INFLUENZA, HIGH DOSE SEASONAL 2015 135 complet ed [facility] PNEUMOCOCCAL CONJUGATE PCV 13 2015 133 complet ed [employer] [id number], 09/22. [facility] INFLUENZA, HIGH DOSE SEASONAL 2014 135 complet ed [facility] INFLUENZA, HIGH DOSE SEASONAL 2014 135 complet ed [facility] PNEUMOCOCCAL CONJUGATE PCV 13 2014 133 complet ed [facility] INFLUENZA, HIGH DOSE SEASONAL 2013 135 complet ed [facility] INFLUENZA, SEASONAL, INJECTABLE 2012 141 complet ed [facility] INFLUENZA, UNSPECIFIED FORMULATION 2012 88 complet ed [facility] ZOSTER LIVE 2012 121 complet ed [facility] INFLUENZA, SEASONAL, INJECTABLE 2012 141 complet ed [facility] ZOSTER LIVE 2011 121 complet ed [employer] 0254ae,06/11/2012 [facility] TDAP 2011 115 complet ed [facility] INFLUENZA, SEASONAL, INJECTABLE, PRESERVATIVE FREE 2010 140 complet ed [facility] INFLUENZA, UNSPECIFIED FORMULATION 2010 88 complet ed [facility] INFLUENZA, SEASONAL, INJECTABLE 2008 141 complet ed [facility] PNEUMOCOCCAL POLYSACCHARID E PPV23 2008 33 complet ed [facility] PNEUMOCOCCAL, UNSPECIFIED FORMULATION 2008 109 complet ed PPV-23 [facility] PNEUMOCOCCAL POLYSACCHARID E PPV23 2004 33 complet ed [facility] TD (ADULT), 2 LF TETANUS TOXOID, PRESERVATIVE FREE, ADSORBED 2002 09 complet ed [facility] Encounters Combined list of: 1) Encounters from Department of [facility] Affairs facilities going back up to thelast 18 months. 2) Encounters from the Department of Defense facilities going back up to 280 months. Location Location Details Encounter Type Encounter Number Reason For Visit Attending Provider ADM Date DC Date Status Disposition Source [facility] Outpatient Encounter [id number] 10/05 [facility] Outpatient Encounter [id number] 01/08 [facility] OFFICE O/P EST LOW 20-29 MIN [id number] Diagnos is: ICD-10- CM Z72.0 Tobacco use<br/ > KYLAH ROBLERO RTSON E 01/28 [facility] [place] [facility] Outpatient Encounter [id number] 01[facility]30 [facility] [place] [facility] OFF/OP CNSLTJ NEW/EST MOD 40 [id number] Diagnos is: ICD-10- CM L60.0 Ingrowi ng nail
KALE HEDRICK 05/09 [place] [facility] [place] [facility] Outpatient Encounter [id number] JAKE WAGNER 06/03 [facility] [place] [facility] Outpatient Encounter [id number] Abran GIBSON 06/05 [facility] PT EDUCATION NOC INDIVID [id number] Diagnos is: ICD-10- CM G47.30 Sleep apnea, unspeci fied
LEILA BENAVIDES 11/11 [facility] [place] [facility] Outpatient Encounter [id number] 01/26 [facility] [place] [facility] Outpatient Encounter [id number] 02/10 [facility] [place] [facility] Outpatient Encounter [id number] 02/12 [facility] [place] [facility] Outpatient Encounter [id number] 02/24 [facility] [place] [facility] Outpatient Encounter [id number] 03/06 [place] [facility] [place] [facility] Outpatient Encounter [id number] 03/20 [facility] Social History Combined list of available smoking, tobacco, and other social history from Department of Defense and [facility] Affairs facilities. Social History Type Response Date Comment Sourc e Tobacco smoking status [place]IS [place]-TOBACCO USER EVERY DAY 01/28/2023 [facility] [place] of [place] 30 MIN OF WAKEUP 01/28/2023 [facility] History of tobacco use VA-TOBACCO DOESNT USE WI 30 MIN WAKEUP 12/06/2021 [facility] History of tobacco use VA-TOBACCO FORMER USER 11/07/2020 [facility] History of tobacco use VA-TOBACCO USE MED NO 09/04/2018 [facility] History of tobacco use FORMER TOBACCO US E >1Y <7Y 09/09/2017 [facility] History of tobacco use CURRENT TOBACCO USER 10/01/2016 [facility] History of tobacco use FORMER TOBACCO USE <1Y 09/02/2015 [facility] History of tobacco use FORMER TOBACCO US E >1Y <7Y 08/18/2014 [facility] History of tobacco use CURRENT TOBACCO USER 10/14/2013 [facility] History of tobacco use CURRENT TOBACCO USER 10/07/2012 [facility] History of tobacco use CURRENT TOBACCO USER 10/02/2011 [facility] History of tobacco use CURRENT TOBACCO USER 09/30/2009 [facility]
[2024-03-25] MEDS: KETOROLAC 15 MG/ML inj IVP (19:57)
== END 2024-03-25 20:20 | disposition home or self-care (01) ==
PROVIDERS: Emergency Provider Family Medicine; PCP Student in an Organized Health Care Education/Training Program
DX: N20.1 Calculus of ureter (principal); I71.40 Abdominal aortic aneurysm, without rupture, unspecified
CPT/HCPCS: 36415; 74177; 80048; 80076; 81001; 83690; 83735; 85025; 87086; 96374; 99284; 99285; J1885; Q9967

== ENCOUNTER 2024-06-03 13:30 | Outpatient (RCR) | payer MEDICARE, SELFPAY ==
[2024-05-23 14:13] LABS: Albumin 3.73 g/dL (3.75-5.01); Immunoglobulin A 314 mg/dL (68-408); Immunoglobulin G 1508 mg/dL (768-1632); Immunoglobulin M 57 mg/dL (35-263)
== END 2024-11-16 23:59 | disposition home or self-care (01) ==
LOC: CCIC 13:30
PROVIDERS: PCP Student in an Organized Health Care Education/Training Program; Referring Provider Student in an Organized Health Care Education/Training Program; Visit Provider Internal Medicine Hematology & Oncology
DX: D47.2 Monoclonal gammopathy (principal); Z72.0 Tobacco use
CPT/HCPCS: 36415; 82784; 83520; 84155; 84165; 86334; 99213; 99214; G0463

== ENCOUNTER 2024-09-23 09:45 | Outpatient (RCR) | payer MEDICARE, SELFPAY | END 2025-01-21 23:59 | disposition home or self-care (01) | PROVIDERS: PCP Student in an Organized Health Care Education/Training Program; Visit Provider Physician Assistant | DX: M26.12 Other jaw asymmetry (principal); M54.2 Cervicalgia; Z51.89 Encounter for other specified aftercare | CPT/HCPCS: 97012; 97110; 97112; 97140; 97162; 97530 ==

== ENCOUNTER 2024-11-18 18:52 | Outpatient (CLI) | payer MEDICARE, SELFPAY | END 2024-11-18 18:53 | disposition home or self-care (01) | LOC: AMB 11-19 15:44 | PROVIDERS: PCP Student in an Organized Health Care Education/Training Program; Visit Provider Family Medicine | DX: R09.89 Other specified symptoms and signs involving the circulatory and respiratory systems (principal) | CPT/HCPCS: A0998 ==